=== PATIENT | female | born 1985 | race Caucasian/White ===

== ENCOUNTER 2016-08-04 21:54 | Inpatient (IN) | payer BC ==
[~2016-08-04] VITALS: Ht 170.2 cm; Wt 104.3 kg
[~2016-08-04 21:54] MED LIST: WARF-78 PO
--- NOTE | 2016-08-04 22:07 | PHYS DOC ---
Past Medical History Past Medical History: DVT, Other Additional Past Medical Histor: Blood clotting disorder - Factor V; PE Past Surgical History: Other Additional Past Surgical Histo: left common illiac stent placed for dvt Alcohol Use: None Drug Use: None Adult General Chief Complaint Chief Complaint: LOWER EXT PAIN [facility] HPI Patient is a 30 year old female brought in by EMS for evaluation of bilateral lower extremity tingling and numbness. She is usually seen at [facility] and requested to go to [facility] via EMS however they are closed so she was brought here. Patient reports that she had a lumbar puncture done on July 24 for pseudocyst tumor cerebri to get her pressure decreased from 30-18. She then said she developed tingling on the bottom of her feet for which they did an MRI for on August 02 which she does not know the results of however she was sent home. She called her physician again and they said to come to the emergency department as she would need another MRI to compare to her one several days ago. The tingling goes up both legs bilaterally and the numbness goes to the knees bilaterally. She has no weakness or incontinence but she says that she has a lot of back pain. Review of Systems Review of Systems Constitutional: Denies fever or chills [] Eyes: Denies change in visual acuity, redness, or eye pain [] HENT: Denies nasal congestion or sore throat [] Respiratory: Denies cough or shortness of breath [] Cardiovascular: No additional information not addressed in HPI [] GI: Denies abdominal pain, nausea, vomiting, bloody stools or diarrhea [] : Denies dysuria or hematuria [] Musculoskeletal: + back pain. No joint pain [] Integument: Denies rash or skin lesions [] Neurologic: Denies headache, focal weakness. + sensory changes [] Current Medications Current Medications Allergies Allergies Allergies Coded Allergies Type Severity Reaction Last Updated Verified adhesive Allergy Intermediate Rash 09/16/13 Yes prochlorperazine Allergy Intermediate Rash 09/16/13 Yes Physical Exam Physical Exam Constitutional: Well developed, well nourished, no acute distress, non-toxic appearance. [] HENT: Normocephalic, atraumatic, bilateral external ears normal, oropharynx moist, no oral exudates, nose normal. [] Eyes: PERRLA, EOMI, conjunctiva normal, no discharge. [] Neck: Normal range of motion, no tenderness, supple, no stridor. [] Cardiovascular:Heart rate regular rhythm, no murmur [] Lungs & Thorax: Bilateral breath sounds clear to auscultation [] Abdomen: Bowel sounds normal, soft, no tenderness, no masses, no pulsatile masses. [] Skin: Warm, dry, no erythema, no rash. [] Back: + diffuse lower back ttp. No obvious swelling, erythema. Extremities: No tenderness, no cyanosis, no clubbing, ROM intact, no edema. [] Neurologic: Alert and oriented X 3, normal motor function. BL lower ext with intact sensation but subjectively diminished. Current Patient Data Vital Signs Vital Signs Date Time Temp Pulse Resp B/P Pulse Ox O2 Delivery O2 Flow Rate FiO2 08/04/16 21:59 98.5 82 16 141/96 97 Room Air 98.5 EKG EKG [] Radiology/Procedures Radiology/Procedures [] Course & Med Decision Making Course & Med Decision Making Patient has intact motor on exam. I am not sure why she is having tingling on her bilateral extremities given she likely had a normal MRI 2 days ago. Guillain-Vargas is a possibility but she has no weakness. I am quite hesitant to lumbar puncture given the complications she is having from her most recent lumbar puncture so we'll defer for now given her symptoms seem relatively minor. Epidural abscess versus myelitis versus Guillain-Vargas. Will get MRI ordered for tomorrow morning and then admit her for observation overnight. Dragon Disclaimer Dragon Disclaimer This electronic medical record was generated, in whole or in part, using a voice recognition dictation system. Departure Departure Impression: Primary Impression: Paresthesia of bilateral legs Disposition: ADMITTED INPATIENT Admitting Physician: Ginny Madden Condition: GOOD Referrals: NON,STAFF (PCP) MANNY CALDERON DO August 04, 2016 22:07
--- NOTE | 2016-08-04 23:06 | ACF ---
Admission Forms Criteria NEUROLOGY GRG Clinical Indications for Admission to Inpatient Care (Place ' X' for any and all applicable criteria): Hospital admission is needed for appropriate care of the patient because of 1 or more of the following: [ ]I. Encephalitis [ ]II. Severe SUPERINTENDENT MEASUREMENT infections indicated by 1 or more of the following(1)(2)(3) : [ ]a) Intracranial abscess [ ]b) Spinal abscess or myelitis [ ]c) Tuberculous or other nonbacterial, nonviral SUPERINTENDENT MEASUREMENT infection(8) [ ]III. Vasculitis and 1 or more of the following(14)(15): []a) Altered mental status that is severe or persistent or other acute neurologic change []b) Psychosis []c) Seizure [ ]IV. Status epilepticus or repetitive seizures not controlled with emergent treatment [A] (7)(8) [ ]V. Altered mental status that is severe or persistent [ ]. Transient alteration in consciousness with high-risk etiology; examples include (12)(13): [ ]a) Cardiovascular source [ ]b) Cataplexy [ ]VII. Cerebral aneurysm requiring ANY ONE of the following(14): [ ]a) IV antihypertensives or vasoactive agents [ ]b) Sedation and analgesia for suspected leak [ ]c) Need for external ventricular drainage and cerebral perfusion pressure monitoring [ ]d) Emergent evaluation to determine need for surgical clipping or endovascular coiling by interventional radiology. If surgery is required ( Also use Craniotomy, Supratentorial, for Surgery of Bleeding Intracranial Aneurysm (for bleeding aneurysm) or Craniotomy, Supratentorial (for nonbleeding aneurysm) as appropriate. [X]VIII. New-onset severe neurologic symptom requiring inpatient care indicated by ANY ONE of the following: [ ]a) Aphasia(15) [ ]b) Weakness (grade 3 or less) [ ]c) Paralysis (eg, hemiplegia) [ ]d) Spasticity(16) [ ]e) Dystonia [ ]e) Ataxia(17) [ ]f) Amnesia(18) [ ]g) Involuntary movements(19) [ ]h) Vertigo [ ] Visual loss [X]i) Other severe neurologic finding (eg, papilledema, mass effect on imaging, myoclonus not treatable at alternative level of care (eg, observation care) [ ]IX. Guillain-Mccook syndrome(20) [ ]X. Myasthenia gravis crisis or inpatient monitoring need as indicated by 1 or more of the following(21): [ ]a) Intensive treatment (eg, course of plasmapheresis) with inadequate outpatient situation to monitor patients status [ ]b) Inadequate airway protection [ ]c) Respiratory insufficiency requiring intubation or inpatient. monitoring [ ]d) Progressive dysphagia with failure to thrive [ ]XI. Multiple sclerosis or other acute demyelinating disease requiring inpatient care as indicated by 1 or more of the following (22)(23): [ ]a) Acute severe deterioration requiring inpatient treatment (eg, IV steroids, plasmapheresis, close observation) [ ]b) Acute complication requiring inpatient care (eg, sepsis, severe decubitus, aspiration) [ ]XII.Parkinson disease requiring inpatient care (Also use Optimal Recovery Care Criteria or General Recovery Criteria as appropriate) indicated by 1 or more of the following(25): [ ]a) Infection (eg, aspiration pneumonia) not treatable at alternative level of care [ ]b Dehydration that is severe or persistent [ ]c) Life-threatening agitation or psychotic behavior not treatable on emergency, observation care, or alternative level (eg, residential) basis [ ]d) Severe medication withdrawal effects (eg, freezing, neuroleptic malignant syndrome) not responsive to emergency and observation care treatment ( as appropriate) [ ]e) Other severe manifestation not treatable at alternative level of care [ ]XII. Amyotrophic lateral sclerosis with inpatient care needs as indicated by ANY ONE of the following(26): [ ]a) Acute complications (eg, aspiration pneumonia, sepsis ) requiring inpatient care ( see other optimal Recovery Guideline as appropriate) [ ]b) Dehydration that is severe persistent AND artificial support desired [ ]c) Inadequate airway protection AND artificial support desired [ ]d) Severe ventilatory insufficiency AND artificial support desired [ ]XIII. Myasthenia gravis crisis or inpatient monitoring need as indicated by 1 or more of the following(21): [] a) Inadequate airway protection []b) Respiratory insufficiency requiring intubation or inpatient monitoring []c) Progressive dysphagia with failure to thrive []d) Intensive treatment (e.g., course of plasmapheresis) with inadequate outpatient situation to monitor patients status [ ]XIV. Multiple sclerosis or other acute demyelinating disease requiring inpatient care indicated by 1 or more of the following[C](36)(43)(44)(45)(46): []a) Acute severe deterioration requiring inpatient treatment (eg, IV steroids, plasmapheresis, close observation) []b) Acute complication requiring inpatient care (eg, sepsis, severe decubitus, aspiration) [ ]XV. Intracranial hypertension (e.g., pseudotumor cerebri) requiring inpatient care (e.g., acute visual loss, inadequate oral intake) (47)(48)(49) [ ]XVI. Parkinson disease requiring inpatient care (Also use Optimal Recovery Care Criteria or General Recovery Criteria as appropriate) indicated by 1 or more of the following(25): [] a) Infection (e.g., aspiration pneumonia) not treatable at alternative level of care []b) Volume depletion not responsive to emergency and observation care treatment (as appropriate) []c) Life-threatening agitation or psychotic behavior not treatable on emergency, observation care, or alternative level (e.g., residential) basis []d) Severe medication withdrawal effects (e.g., freezing, neuroleptic malignant syndrome) not responsive to emergency and observation care treatment (as appropriate) []e) Other severe manifestation not treatable at alternative level of care [ ]XVII. Amyotrophic lateral sclerosis with inpatient care needs as indicated by1 or more of the following(42): []a) Acute complications (eg, aspiration pneumonia, sepsis) requiring inpatient care (see other Optimal Recovery Guideline or General Recovery Guideline as appropriate) []b) Dehydration that is severe or persistent AND artificial support desired []c) Inadequate airway protection AND artificial support desired []d) Severe ventilatory insufficiency AND artificial support desired [ ]XVIII. Severe myopathy, neuropathy, or other neuromuscular disease indicated by 1 or more of the following(42)(52)(53)(54): []a ) New-onset severe diffuse weakness (eg, strength 3/5 or less) []b) Severe dysphagia []c) Dyspnea at rest or with minimal exertion (new) []d) Inadequate airway protection []e) Inadequate ventilation indicated by 1 or more of the following : i) Partial pressure of carbon dioxide greater than 44 mm Hg ( 5.9 kPa) (new) ii) Reduced peak expiratory flow rate (new) iii) Vital capacity less than 50% of predicted (less than 15 mL/kg) iv) Peak inspiratory force less negative than -30 cm H2O (- 2942 Pa) [ ]XVII.Complications of congenital or degenerative disease (eg, infection, seizures, dehydration, injury) not responsive to emergency and observation care treatment (as appropriate ) [C](16)(29)(30) [ ]XVIII.Suspected or confirmed nerve or muscle toxic injury, including ANY ONE of the following: [ ]a) Rhabdomyolysis(31) i) Acute renal failure ii) Dehydration that is severe or persistent iii) Altered mental status that is severe or persistent iv) Electrolyte abnormality that remains after emergency or observation level care ( as appropriate) [ ]b) Botulism(32) [ ]c) Other severe toxin-induced sign or symptom [ ]XIX. Neurologic trauma requiring inpatient treatment (medical) indicated by ANY ONE of the following(33)(34): [ ]a) Vital signs or neurologic signs more frequently than every 4 hours [ ]b) Hyperosmolar therapy [ ]c) Respiratory monitoring [ ]d) Intracranial pressure monitoring and treatment [ ]e) Stabilization and immobilization device placement (eg, braces, body jacket) [ ]f) Intubation & mechanical ventilation for airway protection or therapeutic hyperventilation [ ]g) Other treatment or monitoring needed that requires inpatient level of care [ ]XX.Complications of neurologic devices (eg, ventricular shunt, neurostimulator) requiring 1 or more of the following(35)(36): [ ]a) IV antibiotics with monitoring while awaiting culture results [ ]b) Monitoring for hydrocephalus [ ]XXI. Neurology condition symptom, or finding for which emergency and observation care have failed or are not considered appropriate. See General Criteria: Observation Care ISC, General Admission Criteria GRG, or Pediatric General Admission Criteria GRG guideline as appropriate. The original [facility] [employer] content created by [facility] has been revised. The portions of the content which have been revised are identified through the use of italic text or in bold, and [facility] has neither reviewed nor approved the modified material. All other unmodified content is copyright [facility] Please see references footnoted in the original [facility] edition 2016 Admission Criteria Met?: Yes INOCENTE MCMAHAN August 04, 2016 23:06
--- NOTE | 2016-08-04 23:44 | HP ---
ADMIT DATE: 08/05/2016 CHIEF COMPLAINT: Back pain, slight headache and recent lumbar puncture. HISTORY OF PRESENT ILLNESS: The patient is a pleasant 30-year-old female, who has pseudotumor cerebri. She states she had a lumbar puncture, another facility. She has got some neurologic changes in her legs, there is a little bit numb. She has got slight headache. I discussed the case with the ER physician. We are going to admit the patient and consult Neurology and get an MRI of her back. PAST MEDICAL HISTORY: Pseudotumor cerebri. ALLERGIES: None. FAMILY HISTORY: Diabetes. SOCIAL HISTORY: She does not drink, smoke or take drugs. 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 MEDICATIONS: Reviewed, please refer to the MRAD. REVIEW OF SYSTEMS: GENERAL: No history of weight change, weakness or fevers. SKIN: No bruising, hair changes or rashes. EYES: No blurred, double or loss of vision. NOSE AND THROAT: No history of nosebleeds, hoarseness or sore throat. HEART: No history of palpitations, chest pain or shortness of breath on exertion. LUNGS: Denies cough, hemoptysis, wheezing or shortness of breath. GASTROINTESTINAL: Denies changes in appetite, nausea, vomiting, diarrhea or constipation. GENITOURINARY: No history of frequency, urgency, hesitancy or nocturia. NEUROLOGIC: She complains some slight leg numbness. PSYCHIATRIC: No history of panic, anxiety or depression. ENDOCRINE: No history of heat or cold intolerance, polyuria or polydipsia. EXTREMITIES: Denies muscle weakness, joint pain, pain on walking or stiffness. PHYSICAL EXAMINATION: VITAL SIGNS: Temperature afebrile, pulse 62, respirations 18, blood pressure 144/90. GENERAL: She is alert, cooperative. HEART: Normal S1, S2. LUNGS: Clear. ABDOMEN: Soft, positive bowel sounds. EXTREMITIES: No edema. SKIN: No rashes. PSYCHIATRIC: She is stable. VASCULAR: Good capillary refill. ENDOCRINE: No thyromegaly. LYMPHATICS: No cervical nodes. HEMATOPOIETIC: No bruising. NEUROLOGICAL: She is moving all extremities. No obvious focal deficits. ASSESSMENT AND PLAN: Vague complaints of some leg tingling and numbness after lumbar puncture with slight headache, suspect this is all probably related to lumbar puncture. We are going to admit her overnight for observation. We will get an MRI in the morning. Consult Neurology. Continue home medicines. MAGDALENO CRUZ DO DR: BISHOP/imelda JOB#: [id number] / [id number]
[2016-08-04 23:58] LABS: BASO % 0 % (0-3); EOS % 2 % (0-3); HEMATOCRIT 37.9 % (36.0-47.0); LYMPH # 2.2 x10^3/uL (1.0-4.8); LYMPH % 27 % (24-48); MEAN CORPUSCULAR HEMOGLOBIN 27 pg (25-35); MEAN CORPUSCULAR HGB CONC 34 g/dL (31-37); MEAN CORPUSCULAR VOLUME 79 fL (79-100); MONO % 6 % (0-9); NEUT % 65 % (31-73); PLATELET COUNT 340 x10^3/uL (140-400); RED BLOOD COUNT 4.78 x10^6/uL (3.50-5.40); RED CELL DISTRIBUTION WIDTH 16.3 % (11.5-14.5); WHITE BLOOD COUNT 8.1 x10^3/uL (4.0-11.0)
[2016-08-05] VITALS (7 sets, daily range): BP systolic 112–143; BP diastolic 63–98
[2016-08-05 00:08] LABS: INR 1.5 (0.8-1.1)
[2016-08-05] MEDS: fentaNYL PF VIAL 100 MCG/2 ML VIAL IV PRN ×8 (00:12→20:49)
[2016-08-05] MEDS: ONDANSETRON PF 4 MG/2 ML VIAL. IV PRN ×2 (00:12→14:38)
[2016-08-05 00:14] LABS: CALCIUM 8.7 mg/dL (8.5-10.1); CREATININE 0.8 mg/dL (0.6-1.0); GFR 83.7; POTASSIUM 3.6 mmol/L (3.5-5.1)
[2016-08-05 00:21] LABS: ALBUMIN 3.3 g/dL (3.4-5.0); ALBUMIN/GLOBULIN RATIO 0.8 (1.0-1.7); TOTAL BILIRUBIN 0.3 mg/dL (0.2-1.0); TOTAL PROTEIN 7.4 g/dL (6.4-8.2)
[2016-08-05] MEDS ORDERED: ACET500C15 AD (00:36)
[2016-08-05] MEDS ORDERED: ENOX40DI SQ (00:38)
[2016-08-05] MEDS ORDERED: DILT240C2 PO (00:38)
[2016-08-05] MEDS ORDERED: WARFARIN 7.5 MG TABLET. PO ONE (01:30)
[2016-08-05] MEDS: ANTI-COAG MONITOR BY PHARMACY. MC PRN (01:55)
[2016-08-05 02:46] LABS: BILIRUBIN,URINE NEGATIVE (NEG); GLUCOSE,URINE NEGATIVE (NEG); NITRITE,URINE NEGATIVE (NEG); PROTEIN,URINE NEGATIVE (NEG-TRACE)
[2016-08-05 02:52] LABS: BARBITURATES NEG (NEG); BENZODIAZEPINES NEG (NEG); CANNABINOIDS NEG (NEG); COCAINE NEG (NEG); METHADONE NEG (NEG); OPIATES POS (NEG); PHENCYCLIDINE NEG (NEG)
[2016-08-05 02:53] LABS: BACTERIA,URINE 0 /HPF (0-FEW); RBC,URINE OCC /HPF (0-2); SQUAMOUS EPITHELIAL CELL,UR FEW /LPF; WBC,URINE OCC /HPF (0-4)
[2016-08-05 07:59] LABS: BASO % 1 % (0-3); EOS % 2 % (0-3); HEMATOCRIT 36.8 % (36.0-47.0); HEMOGLOBIN 12.3 g/dL (12.0-15.5); LYMPH % 39 % (24-48); MEAN CORPUSCULAR HEMOGLOBIN 27 pg (25-35); MEAN CORPUSCULAR HGB CONC 33 g/dL (31-37); MEAN CORPUSCULAR VOLUME 80 fL (79-100); MONO % 7 % (0-9); NEUT % 52 % (31-73); PLATELET COUNT 327 x10^3/uL (140-400); RED BLOOD COUNT 4.63 x10^6/uL (3.50-5.40); RED CELL DISTRIBUTION WIDTH 16.5 % (11.5-14.5); WHITE BLOOD COUNT 7.8 x10^3/uL (4.0-11.0)
[2016-08-05 08:03] LABS: CALCIUM 8.2 mg/dL (8.5-10.1); CREATININE 0.7 mg/dL (0.6-1.0); GFR 97.6; POTASSIUM 3.3 mmol/L (3.5-5.1)
[2016-08-05 08:04] LABS: INR 1.5 (0.8-1.1); PROTHROMBIN TIME PATIENT 17.5 SEC (11.7-14.0)
[2016-08-05] MEDS ORDERED: GADOBUTROL 10 MMOL/10 ML VIAL IV ONE (10:45)
--- NOTE | 2016-08-05 11:30 | PDOC2 ---
NEUROLOGY CONSULT Date of Admission Date of Admission DATE: 08/05/16 TIME: 11:22 Reason for Consult Reason for Consult: Leg numbness Referring Physician Referring Physician: Dr. Madden PCP: [facility] Source Source: Chart review, Patient History of Present Illness History of Present Illness The patient is a 30-year-old right-handed female with history of benign intracranial hypertension. She was hospitalized at with severe headache and underwent a lumbar puncture showing pressure of 31 cm. She then underwent a blood patch. After that, she noticed tingling in the feet. She had an MRI of the lumbar spine which, she was told, was normal. The numbness extended into the thighs and she had trouble walking. She called the discharging physician who told her to go to the emergency department. She called an ambulance, and as was on bypass, she came here. She describes numbness in both legs and difficulty walking along with low back and mid back pain. She denies any urinary or bowel symptoms. There is no history of multiple sclerosis. She denies any symptoms in the upper r extremities. there is no history of stroke, seizure, head, or spine injury. Past Medical History Pulmonary: Pulmonary embolus (DVT) CENTRAL NERVOUS SYSTEM: Other ( benign intracranial hypertension) Heme/Onc: Other ( factor V deficiency) Past Surgical History Past Surgical History: Cholecystectomy, , Other ( iliac stent for deep venous thrombosis) Family History Family History: CVA Social History Social History No alcohol, tobacco, street drugs Current Medications Current Medications Current Medications Ondansetron HCl (Zofran) 4 mg PRN Q8HRS PRN IV NAUSEA/VOMITING Last administered on 08/05/16 00:12; Start 08/04/16 at 22:30; Stop 08/05/16 at 22:29 Fentanyl Citrate (Fentanyl 2ml Vial) 50 mcg PRN Q2HR PRN IV SEVERE PAIN Last administered on 08/05/16 09:48; Start 08/04/16 at 22:30; Stop 08/05/16 at 22:29 Enoxaparin Sodium (Lovenox 100mg Syringe) 100 mg Q12HR SQ Last administered on 08/05/16 01:29; Start 08/05/16 at 01:30 Warfarin Sodium (Coumadin Per Pharmacy) 1 each PRN DAILY PRN MC SEE COMMENTS Last administered on 08/05/16 01:56; Start 08/05/16 at 01:15 Warfarin Sodium (Coumadin) 7.5 mg 1X ONCE PO Last administered on 08/05/16 01: 30; Start 08/05/16 at 01:30; Stop 08/05/16 at 01:31; Status DC Info (Anti-Coagulation Monitoring By Pharmacy) 1 each PRN DAILY PRN MC SEE COMMENTS Last administered on 08/05/16 01:55; Start 08/05/16 at 01:15 Gadobutrol (Gadavist) 10 mmol 1X ONCE IV Last administered on 08/05/16 11:09; Start 08/05/16 at 10:45; Stop 08/05/16 at 10:46; Status DC Active Scripts Active Reported Cardizem Cd (Diltiazem Hcl) 240 Mg Cap.er.24h 1 Cap PO DAILY Lovenox (Enoxaparin Sodium) 40 Mg/0.4 Ml Disp.syrin 120 Mg SQ BID Diamox Sequels (Acetazolamide) 500 Mg Capsule.er 500 Mg AD BID Coumadin (Warfarin Sodium) 5 Mg Tablet 6 Mg PO DAILY Allergies Allergies: Coded Allergies: adhesive (Verified Allergy, Intermediate, Rash, 09/16/13) prochlorperazine (Verified Allergy, Intermediate, Rash, 09/16/13) ROS Review of System Negative for fevers, chills, weight loss, shortness of breath, chest pain, indigestion, hematochezia, melena, dysuria. Full 14-point review systems is negative. Physical Exam Physical Examination PHYSICAL EXAMINATION: Vital signs: see above. General appearance is normal and in no acute distress. HEENT: Normocephalic and nontraumatic. Eyes, nose, ears, and throat are unremarkable. Neck is supple. No lymphadenopathy. No bruits are heard over the carotid artery. No crepitus. NEUROLOGICAL EXAMINATION: Mental Status Examination: Alert. Oriented to time, place, and person. Answers questions and follows commends. Pupils are equal round and reactive to light and accommodation. Funduscopic exam: No papilledema. Extraocular movements are intact. Visual field exam shows no defect on the direct confrontation. No motor or sensory deficits on the facial exam. Uvula in the midline and the soft palate elevated symmetrically. No deviation of the tongue to any direction. Gross hearing is normal. Shoulder shrug normal. Muscle tone is normal. Muscle strength is 5/5. Deep tendon reflexes are 2+ all around. Plantar reflex is with flexion response bilaterally. [id number] test performance is accurate. Alternative movements are accurate. Romberg test is negative. Gait Exam shows it she stands rather stiffly and take some stiff steps , locking her knees. Sensory exam shows complete anesthesia below the knees. No cerebellar signs are elicited. Vitals VITALS Vital Signs Date Time Temp Pulse Resp B/P Pulse Ox O2 Delivery O2 Flow Rate FiO2 08/05/16 07:00 98.0 71 16 129/77 95 Room Air 98.0 Labs Labs Laboratory Tests Test 08/04/16 23:45 08/05/16 02:30 08/05/16 07:25 White Blood Count 8.1x10^3/uL (4.0-11.0) 7.8x10^3/uL (4.0-11.0) Red Blood Count 4.78x10^6/uL (3.50-5.40) 4.63x10^6/uL (3.50-5.40) Hemoglobin 13.0g/dL (12.0-15.5) 12.3g/dL (12.0-15.5) Hematocrit 37.9% (36.0-47.0) 36.8% (36.0-47.0) Mean Corpuscular Volume 79fL (79-100) 80fL (79-100) Mean Corpuscular Hemoglobin 27pg (25-35) 27pg (25-35) Mean Corpuscular Hemoglobin Concent 34g/dL (31-37) 33g/dL (31-37) Red Cell Distribution Width 16.3% (11.5-14.5) 16.5% (11.5-14.5) Platelet Count 340x10^3/uL (140-400) 327x10^3/uL (140-400) Neutrophils (%) (Auto) 65% (31-73) 52% (31-73) Lymphocytes (%) (Auto) 27% (24-48) 39% (24-48) Monocytes (%) (Auto) 6% (0-9) 7% (0-9) Eosinophils (%) (Auto) 2% (0-3) 2% (0-3) Basophils (%) (Auto) 0% (0-3) 1% (0-3) Neutrophils # (Auto) 5.3x10^3uL (1.8-7.7) 4.0x10^3uL (1.8-7.7) Lymphocytes # (Auto) 2.2x10^3/uL (1.0-4.8) 3.0x10^3/uL (1.0-4.8) Monocytes # (Auto) 0.5x10^3/uL (0.0-1.1) 0.5x10^3/uL (0.0-1.1) Eosinophils # (Auto) 0.1x10^3/uL (0.0-0.7) 0.2x10^3/uL (0.0-0.7) Basophils # (Auto) 0.0x10^3/uL (0.0-0.2) 0.0x10^3/uL (0.0-0.2) Prothrombin Time 17.0SEC (11.7-14.0) 17.5SEC (11.7-14.0) Prothromb Time International Ratio 1.5 (0.8-1.1) 1.5 (0.8-1.1) Activated Partial Thromboplast Time 28SEC (24-38) Sodium Level 137mmol/L (136-145) 137mmol/L (136-145) Potassium Level 3.6mmol/L (3.5-5.1) 3.3mmol/L (3.5-5.1) Chloride Level 108mmol/L (98-107) 106mmol/L (98-107) Carbon Dioxide Level 21mmol/L (21-32) 22mmol/L (21-32) Anion Gap 8 (6-14) 9 (6-14) Blood Urea Nitrogen 11mg/dL (7-20) 11mg/dL (7-20) Creatinine 0.8mg/dL (0.6-1.0) 0.7mg/dL (0.6-1.0) Estimated GFR (Cockcroft-Gault) 83.7 97.6 BUN/Creatinine Ratio 14 (6-20) Glucose Level 92mg/dL (70-99) 98mg/dL (70-99) Calcium Level 8.7mg/dL (8.5-10.1) 8.2mg/dL (8.5-10.1) Total Bilirubin 0.3mg/dL (0.2-1.0) Aspartate Amino Transf (AST/SGOT) 11U/L (15-37) Alanine Aminotransferase (ALT/SGPT) 21U/L (14-59) Alkaline Phosphatase 67U/L (46-116) Total Protein 7.4g/dL (6.4-8.2) Albumin 3.3g/dL (3.4-5.0) Albumin/Globulin Ratio 0.8 (1.0-1.7) Urine Collection Type Unknown Urine Color Yellow Urine Clarity Clear Urine pH 7.0 Urine Specific [place] 1.015 Urine Protein Negativemg/dL (NEG-TRACE) Urine Glucose (UA) Negativemg/dL (NEG) Urine Ketones (Stick) Negativemg/dL (NEG) Urine Blood Large (NEG) Urine Nitrite Negative (NEG) Urine Bilirubin Negative (NEG) Urine Urobilinogen Dipstick 1.0mg/dL (0.2 mg/dL) Urine Leukocyte Esterase Negative (NEG) Urine RBC Occ/HPF (0-2) Urine WBC Occ/HPF (0-4) Urine Squamous Epithelial Cells Few/LPF Urine Amorphous Sediment Present/HPF Urine Bacteria 0/HPF (0-FEW) Urine Mucus Mod/LPF Urine Opiates Screen Pos (NEG) Urine Methadone Screen Neg (NEG) Urine Barbiturates Neg (NEG) Urine Phencyclidine Screen Neg (NEG) Urine Amphetamine/Methamphetamine Neg (NEG) Urine Benzodiazepines Screen Neg (NEG) Urine Cocaine Screen Neg (NEG) Urine Cannabinoids Screen Neg (NEG) Urine Ethyl Alcohol Neg (NEG) Laboratory Tests Test 08/04/16 23:45 08/05/16 02:30 08/05/16 07:25 White Blood Count 8.1x10^3/uL (4.0-11.0) 7.8x10^3/uL (4.0-11.0) Red Blood Count 4.78x10^6/uL (3.50-5.40) 4.63x10^6/uL (3.50-5.40) Hemoglobin 13.0g/dL (12.0-15.5) 12.3g/dL (12.0-15.5) Hematocrit 37.9% (36.0-47.0) 36.8% (36.0-47.0) Mean Corpuscular Volume 79fL (79-100) 80fL (79-100) Mean Corpuscular Hemoglobin 27pg (25-35) 27pg (25-35) Mean Corpuscular Hemoglobin Concent 34g/dL (31-37) 33g/dL (31-37) Red Cell Distribution Width 16.3% (11.5-14.5) 16.5% (11.5-14.5) Platelet Count 340x10^3/uL (140-400) 327x10^3/uL (140-400) Neutrophils (%) (Auto) 65% (31-73) 52% (31-73) Lymphocytes (%) (Auto) 27% (24-48) 39% (24-48) Monocytes (%) (Auto) 6% (0-9) 7% (0-9) Eosinophils (%) (Auto) 2% (0-3) 2% (0-3) Basophils (%) (Auto) 0% (0-3) 1% (0-3) Neutrophils # (Auto) 5.3x10^3uL (1.8-7.7) 4.0x10^3uL (1.8-7.7) Lymphocytes # (Auto) 2.2x10^3/uL (1.0-4.8) 3.0x10^3/uL (1.0-4.8) Monocytes # (Auto) 0.5x10^3/uL (0.0-1.1) 0.5x10^3/uL (0.0-1.1) Eosinophils # (Auto) 0.1x10^3/uL (0.0-0.7) 0.2x10^3/uL (0.0-0.7) Basophils # (Auto) 0.0x10^3/uL (0.0-0.2) 0.0x10^3/uL (0.0-0.2) Prothrombin Time 17.0SEC (11.7-14.0) 17.5SEC (11.7-14.0) Prothromb Time International Ratio 1.5 (0.8-1.1) 1.5 (0.8-1.1) Activated Partial Thromboplast Time 28SEC (24-38) Sodium Level 137mmol/L (136-145) 137mmol/L (136-145) Potassium Level 3.6mmol/L (3.5-5.1) 3.3mmol/L (3.5-5.1) Chloride Level 108mmol/L (98-107) 106mmol/L (98-107) Carbon Dioxide Level 21mmol/L (21-32) 22mmol/L (21-32) Anion Gap 8 (6-14) 9 (6-14) Blood Urea Nitrogen 11mg/dL (7-20) 11mg/dL (7-20) Creatinine 0.8mg/dL (0.6-1.0) 0.7mg/dL (0.6-1.0) Estimated GFR (Cockcroft-Gault) 83.7 97.6 BUN/Creatinine Ratio 14 (6-20) Glucose Level 92mg/dL (70-99) 98mg/dL (70-99) Calcium Level 8.7mg/dL (8.5-10.1) 8.2mg/dL (8.5-10.1) Total Bilirubin 0.3mg/dL (0.2-1.0) Aspartate Amino Transf (AST/SGOT) 11U/L (15-37) Alanine Aminotransferase (ALT/SGPT) 21U/L (14-59) Alkaline Phosphatase 67U/L (46-116) Total Protein 7.4g/dL (6.4-8.2) Albumin 3.3g/dL (3.4-5.0) Albumin/Globulin Ratio 0.8 (1.0-1.7) Urine Collection Type Unknown Urine Color Yellow Urine Clarity Clear Urine pH 7.0 Urine Specific [place] 1.015 Urine Protein Negativemg/dL (NEG-TRACE) Urine Glucose (UA) Negativemg/dL (NEG) Urine Ketones (Stick) Negativemg/dL (NEG) Urine Blood Large (NEG) Urine Nitrite Negative (NEG) Urine Bilirubin Negative (NEG) Urine Urobilinogen Dipstick 1.0mg/dL (0.2 mg/dL) Urine Leukocyte Esterase Negative (NEG) Urine RBC Occ/HPF (0-2) Urine WBC Occ/HPF (0-4) Urine Squamous Epithelial Cells Few/LPF Urine Amorphous Sediment Present/HPF Urine Bacteria 0/HPF (0-FEW) Urine Mucus Mod/LPF Urine Opiates Screen Pos (NEG) Urine Methadone Screen Neg (NEG) Urine Barbiturates Neg (NEG) Urine Phencyclidine Screen Neg (NEG) Urine Amphetamine/Methamphetamine Neg (NEG) Urine Benzodiazepines Screen Neg (NEG) Urine Cocaine Screen Neg (NEG) Urine Cannabinoids Screen Neg (NEG) Urine Ethyl Alcohol Neg (NEG) Assessment/Plan Assessment/Plan Impression: Back pain, leg sensory symptoms, but exam is not consistent with organic neurological disease. She has normal strength and reflexes arguing against a neuropathy. Complete anesthesia is not typical of any organic problem. She is able to stand with her supposedly weak legs, and when she walks, it is not an organic pattern. I thought perhaps Diamox could be at fault, but she has been on this before. Benign intracranial hypertension. Recommendations: MRI of the lumbar spine was ordered and I added on thoracic spine, with and without contrast Physical and occupational therapy Further recommendations depending on the results of these studies. Thank you for letting me help with the patient's care. GIANFRANCO CONTRERAS MD August 05, 2016 11:30
[2016-08-05] MEDS ORDERED: OXYC5CAP3 PO (11:50)
[2016-08-05] MEDS ORDERED: CYCL10TA2 PO (11:50)
[2016-08-05] MEDS ORDERED: OXYC10TA PO (11:50)
--- NOTE | 2016-08-05 11:51 | RAD ---
PROCEDURE MRI thoracic spine with and without contrast. HISTORY Chronic back pain and bilateral leg weakness and tingling. TECHNIQUE Sagittal T1, sagittal T2, sagittal STIR, sagittal post contrast, axial T1, axial T2, and axial post-contrast sequences are provided. 10 milliliters of intravenous Gadavist was administered without complication. COMPARISON None. FINDINGS There is no malalignment. There is no worrisome marrow lesion. There is fatty replacement of the endplates from T6-T7 through T8-T9 anteriorly. Vertebral body height is maintained. There is no marrow edema. There is no cord signal abnormality. There is no pathologic enhancement. There is minimal degenerative disc disease in the mid thoracic spine. This does not result in any high-grade canal or foraminal compromise. There is mild motion degradation. IMPRESSION 1. Minimal degenerative disc disease in the mid thoracic spine. No large herniation. No high-grade canal or foraminal compromise at any level. 2. No cord signal abnormality or pathologic enhancement. Electronically signed by: Martin Rebollar MD (August 05, 2016 11:49:56)
--- NOTE | 2016-08-05 11:56 | RAD ---
PROCEDURE MRI lumbar spine with and without contrast. HISTORY Chronic low back pain and leg numbness and tingling. TECHNIQUE Sagittal T1, sagittal T2, sagittal STIR, axial T1, and axial T2 sequences are provided. 10 milliliters of intravenous Gadavist was administered in total for today's exams. Post-contrast axial and sagittal imaging was performed. COMPARISON None. FINDINGS There is no malalignment. There is no marrow edema. There is no worrisome marrow lesion. Disc height is maintained and discs are well hydrated. The conus medullaris is normal in signal intensity and in position. There is no pathologic enhancement. 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 Degenerative findings by individual level are as follows: L1-L2: There is no canal or foraminal compromise. L2-L3: There is a minimal disc bulge without canal or foraminal compromise. L3-L4: There is no canal or foraminal compromise. L4-L5: Minimal facet and ligamentum flavum hypertrophy are noted without canal or foraminal compromise. L5-S1: There is minimal facet hypertrophy without canal or foraminal compromise. IMPRESSION 1. No significant canal or foraminal compromise at any level. 2. No pathologic enhancement. 3. Fibrolipoma of the filum terminale. Electronically signed by: Martin Rebollar MD (August 05, 2016 11:54:48)
[2016-08-05] MEDS ORDERED: tiZANidine 4 MG TABLET. PO PRN (13:30)
[2016-08-05] MEDS ORDERED: WARFARIN 6 MG TABLET. PO ONE (16:00)
[2016-08-05] MEDS ORDERED: oxyCODONE IR 5 MG TABLET PO PRN (18:00)
[2016-08-05] MEDS: oxyCODONE IR 5 MG TABLET PO PRN ×2 (18:12→23:21)
[2016-08-06] MEDS: oxyCODONE IR 5 MG TABLET PO PRN ×6 (02:34→20:57)
[2016-08-06] MEDS ORDERED: FERR-26 PO (05:28)
[2016-08-06] MEDS ORDERED: LIDO700A27 TP (05:30)
[2016-08-06] MEDS ORDERED: CAFF200T13 PO (05:30)
[2016-08-06 07:00] VITALS: BP 118/69
[2016-08-06 07:41] LABS: INR 1.8 (0.8-1.1); PROTHROMBIN TIME PATIENT 19.6 SEC (11.7-14.0)
--- NOTE | 2016-08-06 09:56 | PDOC ---
PROGRESS NOTES Chief Complaint Chief Complaint late entry, Pt seen on 08/05/16 cc: back pain Acute low backpack with paresthesia hx OF DVT/PE on warfarin Plan MRI lumbar spine Neurology following Pain control INR goal 2-3, Pharmacy to dose warfarin. Vitals Vitals Vital Signs Date Time Temp Pulse Resp B/P Pulse Ox O2 Delivery O2 Flow Rate FiO2 08/06/16 08:59 98 Room Air 08/06/16 07:00 97.9 77 18 118/69 97.9 Physical Exam General: Alert, Oriented X3 Heart: Normal S1, Normal S2 Lungs: Clear Abdomen: Normal bowel sounds Labs LABS Laboratory Tests Test 08/06/16 06:55 Prothrombin Time 19.6SEC (11.7-14.0) Prothromb Time International Ratio 1.8 (0.8-1.1) Assessment and Plan Assessmemt and Plan Problems Medical Problems: (1) Paresthesia of bilateral legs Status: Acute Problems: Comment Review of Relevant I have reviewed the following items юлия (where applicable) has been applied. Labs Laboratory Tests Test 08/04/16 23:45 08/05/16 02:30 08/05/16 07:25 08/06/16 06:55 White Blood Count 8.1x10^3/uL (4.0-11.0) 7.8x10^3/uL (4.0-11.0) Red Blood Count 4.78x10^6/uL (3.50-5.40) 4.63x10^6/uL (3.50-5.40) Hemoglobin 13.0g/dL (12.0-15.5) 12.3g/dL (12.0-15.5) Hematocrit 37.9% (36.0-47.0) 36.8% (36.0-47.0) Mean Corpuscular Volume 79fL (79-100) 80fL (79-100) Mean Corpuscular Hemoglobin 27pg (25-35) 27pg (25-35) Mean Corpuscular Hemoglobin Concent 34g/dL (31-37) 33g/dL (31-37) Red Cell Distribution Width 16.3% (11.5-14.5) 16.5% (11.5-14.5) Platelet Count 340x10^3/uL (140-400) 327x10^3/uL (140-400) Neutrophils (%) (Auto) 65% (31-73) 52% (31-73) Lymphocytes (%) (Auto) 27% (24-48) 39% (24-48) Monocytes (%) (Auto) 6% (0-9) 7% (0-9) Eosinophils (%) (Auto) 2% (0-3) 2% (0-3) Basophils (%) (Auto) 0% (0-3) 1% (0-3) Neutrophils # (Auto) 5.3x10^3uL (1.8-7.7) 4.0x10^3uL (1.8-7.7) Lymphocytes # (Auto) 2.2x10^3/uL (1.0-4.8) 3.0x10^3/uL (1.0-4.8) Monocytes # (Auto) 0.5x10^3/uL (0.0-1.1) 0.5x10^3/uL (0.0-1.1) Eosinophils # (Auto) 0.1x10^3/uL (0.0-0.7) 0.2x10^3/uL (0.0-0.7) Basophils # (Auto) 0.0x10^3/uL (0.0-0.2) 0.0x10^3/uL (0.0-0.2) Prothrombin Time 17.0SEC (11.7-14.0) 17.5SEC (11.7-14.0) 19.6SEC (11.7-14.0) Prothromb Time International Ratio 1.5 (0.8-1.1) 1.5 (0.8-1.1) 1.8 (0.8-1.1) Activated Partial Thromboplast Time 28SEC (24-38) Sodium Level 137mmol/L (136-145) 137mmol/L (136-145) Potassium Level 3.6mmol/L (3.5-5.1) 3.3mmol/L (3.5-5.1) Chloride Level 108mmol/L (98-107) 106mmol/L (98-107) Carbon Dioxide Level 21mmol/L (21-32) 22mmol/L (21-32) Anion Gap 8 (6-14) 9 (6-14) Blood Urea Nitrogen 11mg/dL (7-20) 11mg/dL (7-20) Creatinine 0.8mg/dL (0.6-1.0) 0.7mg/dL (0.6-1.0) Estimated GFR (Cockcroft-Gault) 83.7 97.6 BUN/Creatinine Ratio 14 (6-20) Glucose Level 92mg/dL (70-99) 98mg/dL (70-99) Calcium Level 8.7mg/dL (8.5-10.1) 8.2mg/dL (8.5-10.1) Total Bilirubin 0.3mg/dL (0.2-1.0) Aspartate Amino Transf (AST/SGOT) 11U/L (15-37) Alanine Aminotransferase (ALT/SGPT) 21U/L (14-59) Alkaline Phosphatase 67U/L (46-116) Total Protein 7.4g/dL (6.4-8.2) Albumin 3.3g/dL (3.4-5.0) Albumin/Globulin Ratio 0.8 (1.0-1.7) Urine Collection Type Unknown Urine Color Yellow Urine Clarity Clear Urine pH 7.0 Urine Specific [place] 1.015 Urine Protein Negativemg/dL (NEG-TRACE) Urine Glucose (UA) Negativemg/dL (NEG) Urine Ketones (Stick) Negativemg/dL (NEG) Urine Blood Large (NEG) Urine Nitrite Negative (NEG) Urine Bilirubin Negative (NEG) Urine Urobilinogen Dipstick 1.0mg/dL (0.2 mg/dL) Urine Leukocyte Esterase Negative (NEG) Urine RBC Occ/HPF (0-2) Urine WBC Occ/HPF (0-4) Urine Squamous Epithelial Cells Few/LPF Urine Amorphous Sediment Present/HPF Urine Bacteria 0/HPF (0-FEW) Urine Mucus Mod/LPF Urine Opiates Screen Pos (NEG) Urine Methadone Screen Neg (NEG) Urine Barbiturates Neg (NEG) Urine Phencyclidine Screen Neg (NEG) Urine Amphetamine/Methamphetamine Neg (NEG) Urine Benzodiazepines Screen Neg (NEG) Urine Cocaine Screen Neg (NEG) Urine Cannabinoids Screen Neg (NEG) Urine Ethyl Alcohol Neg (NEG) Laboratory Tests Test 08/06/16 06:55 Prothrombin Time 19.6SEC (11.7-14.0) Prothromb Time International Ratio 1.8 (0.8-1.1) Medications Current Medications Ondansetron HCl (Zofran) 4 mg PRN Q8HRS PRN IV NAUSEA/VOMITING Last administered on 08/05/16 14:38; Start 08/04/16 at 22:30; Stop 08/05/16 at 22:29; Status DC Fentanyl Citrate (Fentanyl 2ml Vial) 50 mcg PRN Q2HR PRN IV SEVERE PAIN Last administered on 08/05/16 20:49; Start 08/04/16 at 22:30; Stop 08/05/16 at 22:29; Status DC Enoxaparin Sodium (Lovenox 100mg Syringe) 100 mg Q12HR SQ Last administered on 08/06/16 08:52; Start 08/05/16 at 01:30 Warfarin Sodium (Coumadin Per Pharmacy) 1 each PRN DAILY PRN MC SEE COMMENTS Last administered on 08/05/16 15:00; Start 08/05/16 at 01:15 Warfarin Sodium (Coumadin) 7.5 mg 1X ONCE PO Last administered on 08/05/16 01: 30; Start 08/05/16 at 01:30; Stop 08/05/16 at 01:31; Status DC Info (Anti-Coagulation Monitoring By Pharmacy) 1 each PRN DAILY PRN MC SEE COMMENTS Last administered on 08/05/16 01:55; Start 08/05/16 at 01:15 Gadobutrol (Gadavist) 10 mmol 1X ONCE IV Last administered on 08/05/16 11:09; Start 08/05/16 at 10:45; Stop 08/05/16 at 10:46; Status DC Tizanidine HCl (Zanaflex) 2 mg PRN BID PRN PO MUSCLE SPASMS Last administered on 08/05/16 13:43; Start 08/05/16 at 13:30 Warfarin Sodium (Coumadin) 6 mg 1X WARF ONCE PO Last administered on 08/05/16 18:12; Start 08/05/16 at 16:00; Stop 08/05/16 at 16:01; Status DC Oxycodone HCl (Roxicodone) 5 mg PRN Q3HRS PRN PO PAIN; Start 08/05/16 at 18:00 Oxycodone HCl (Roxicodone) 10 mg PRN Q3HRS PRN PO PAIN Last administered on 08/06t 08:59; Start 08/05/16 at 18:00 Acetazolamide (Diamox) 500 mg BID PO ; Start 08/06/16 at 10:00 Diltiazem HCl (Cardizem 24hr Cd) 240 mg DAILY PO ; Start 08/06/16 at 10:00 Ferrous Sulfate (Feosol) 325 mg BIDWMEALS PO ; Start 08/06/16 at 10:00 Lidocaine (Lidoderm) 10 patch DAILY TP ; Start 08/07/16 at 09:00; Stop 08/07/16 at 09:00; Status DC Lidocaine (Lidoderm) 1 patch DAILY TP ; Start 08/06/16 at 10:00 Warfarin Sodium (Coumadin Per Pharmacy) 1 each PRN DAILY PRN MC SEE COMMENTS; Start 08/06/16 at 09:15; Status UNV Enoxaparin Sodium (Lovenox Per Pharmacy Treatment Dosing) 1 each PRN DAILY PRN MC SEE COMMENTS; Start 08/06/16 at 09:15; Status UNV Active Scripts Active Reported Lidocaine 700 Mg Adh..patch 700 Mg TP DAILY Caffeine 200 Mg Tablet 200 Mg PO BID Ferrous Sulfate 325 Mg Tablet 1 Tab PO BID Cyclobenzaprine Hcl 10 Mg Tablet 10 Mg PO TID Oxycodone Hcl 10 Mg Tablet 10 Mg PO PRN Q3HRS PRN Oxycodone Hcl 5 Mg Capsule 5 Mg PO PRN Q3HRS PRN Cardizem Cd (Diltiazem Hcl) 240 Mg Cap.er.24h 1 Cap PO DAILY Lovenox (Enoxaparin Sodium) 40 Mg/0.4 Ml Disp.syrin 120 Mg SQ BID Diamox Sequels (Acetazolamide) 500 Mg Capsule.er 500 Mg AD BID Coumadin (Warfarin Sodium) 5 Mg Tablet 6 Mg PO DAILY Vitals/I & O Vital Sign - Last 24 Hours 08/05/16 08/05/16 08/05/16 08/05/16 11:30 15:04 19:00 20:49 Temp 98.3 97.9 98.4 98.3 97.9 98.4 Pulse 78 94 85 Resp 16 16 16 16 B/P 128/98 143/97 129/80 Pulse Ox 99 98 95 98 O2 Delivery Room Air Room Air Room Air Room Air 08/05/16 08/05/16 08/06/16 08/06/16 23:21 23:23 02:34 03:00 Temp 97.7 97.7 Pulse 72 Resp B/P 133/95 Pulse Ox 98 98 98 O2 Delivery Room Air Room Air Room Air Room Air 08/06/16 08/06/16 08/06/16 08/06/16 05:33 06:37 07:00 08:59 Temp 97.9 97.9 Pulse 77 Resp B/P 118/69 Pulse Ox 98 98 98 98 O2 Delivery Room Air Room Air Room Air Room Air Intake and Output 08/05/16 08/05/16 08/06/16 15:00 23:00 07:00 Intake Total 240 ml Balance 240 ml MARTY LEONARD MD August 06, 2016 09:55
[2016-08-06 11:00] VITALS: BP 118/69
--- NOTE | 2016-08-06 11:47 | PDOC ---
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 I offered encouragement Continue physical and occupational therapies I will consider EMG and nerve conduction studies if she does not continue to improve Subjective She feels better, but complaints of headache and complains that no one ordered her home medications. Objective Vital Signs Date Time Temp Pulse Resp B/P Pulse Ox O2 Delivery O2 Flow Rate FiO2 08/06/16 08:59 98 Room Air 08/06/16 07:00 97.9 77 18 118/69 97.9 Intake and Output 08/06/16 07:00 Intake Total 240 ml Balance 240 ml Intake Oral 240 ml # Voids 6 PHYSICAL EXAM Alert. Oriented to time, place and person. PERRL. EOMI. CN: no focal findings. Mild bilateral papilledema Muscle tone: normal. Muscle strength: 5/5 DTR: 2+ including the knees and ankles Plantar reflex: flexor Gait: not examined in bed. Sensory exam: stocking loss abruptly stopping at both knees. No cerebellar signs elicited. Review of Relevant I have reviewed the following items юлия (where applicable) has been applied. Labs Laboratory Tests Test 08/04/16 23:45 08/05/16 02:30 08/05/16 07:25 08/06/16 06:55 White Blood Count 8.1x10^3/uL (4.0-11.0) 7.8x10^3/uL (4.0-11.0) Red Blood Count 4.78x10^6/uL (3.50-5.40) 4.63x10^6/uL (3.50-5.40) Hemoglobin 13.0g/dL (12.0-15.5) 12.3g/dL (12.0-15.5) Hematocrit 37.9% (36.0-47.0) 36.8% (36.0-47.0) Mean Corpuscular Volume 79fL (79-100) 80fL (79-100) Mean Corpuscular Hemoglobin 27pg (25-35) 27pg (25-35) Mean Corpuscular Hemoglobin Concent 34g/dL (31-37) 33g/dL (31-37) Red Cell Distribution Width 16.3% (11.5-14.5) 16.5% (11.5-14.5) Platelet Count 340x10^3/uL (140-400) 327x10^3/uL (140-400) Neutrophils (%) (Auto) 65% (31-73) 52% (31-73) Lymphocytes (%) (Auto) 27% (24-48) 39% (24-48) Monocytes (%) (Auto) 6% (0-9) 7% (0-9) Eosinophils (%) (Auto) 2% (0-3) 2% (0-3) Basophils (%) (Auto) 0% (0-3) 1% (0-3) Neutrophils # (Auto) 5.3x10^3uL (1.8-7.7) 4.0x10^3uL (1.8-7.7) Lymphocytes # (Auto) 2.2x10^3/uL (1.0-4.8) 3.0x10^3/uL (1.0-4.8) Monocytes # (Auto) 0.5x10^3/uL (0.0-1.1) 0.5x10^3/uL (0.0-1.1) Eosinophils # (Auto) 0.1x10^3/uL (0.0-0.7) 0.2x10^3/uL (0.0-0.7) Basophils # (Auto) 0.0x10^3/uL (0.0-0.2) 0.0x10^3/uL (0.0-0.2) Prothrombin Time 17.0SEC (11.7-14.0) 17.5SEC (11.7-14.0) 19.6SEC (11.7-14.0) Prothromb Time International Ratio 1.5 (0.8-1.1) 1.5 (0.8-1.1) 1.8 (0.8-1.1) Activated Partial Thromboplast Time 28SEC (24-38) Sodium Level 137mmol/L (136-145) 137mmol/L (136-145) Potassium Level 3.6mmol/L (3.5-5.1) 3.3mmol/L (3.5-5.1) Chloride Level 108mmol/L (98-107) 106mmol/L (98-107) Carbon Dioxide Level 21mmol/L (21-32) 22mmol/L (21-32) Anion Gap 8 (6-14) 9 (6-14) Blood Urea Nitrogen 11mg/dL (7-20) 11mg/dL (7-20) Creatinine 0.8mg/dL (0.6-1.0) 0.7mg/dL (0.6-1.0) Estimated GFR (Cockcroft-Gault) 83.7 97.6 BUN/Creatinine Ratio 14 (6-20) Glucose Level 92mg/dL (70-99) 98mg/dL (70-99) Calcium Level 8.7mg/dL (8.5-10.1) 8.2mg/dL (8.5-10.1) Total Bilirubin 0.3mg/dL (0.2-1.0) Aspartate Amino Transf (AST/SGOT) 11U/L (15-37) Alanine Aminotransferase (ALT/SGPT) 21U/L (14-59) Alkaline Phosphatase 67U/L (46-116) Total Protein 7.4g/dL (6.4-8.2) Albumin 3.3g/dL (3.4-5.0) Albumin/Globulin Ratio 0.8 (1.0-1.7) Urine Collection Type Unknown Urine Color Yellow Urine Clarity Clear Urine pH 7.0 Urine Specific [place] 1.015 Urine Protein Negativemg/dL (NEG-TRACE) Urine Glucose (UA) Negativemg/dL (NEG) Urine Ketones (Stick) Negativemg/dL (NEG) Urine Blood Large (NEG) Urine Nitrite Negative (NEG) Urine Bilirubin Negative (NEG) Urine Urobilinogen Dipstick 1.0mg/dL (0.2 mg/dL) Urine Leukocyte Esterase Negative (NEG) Urine RBC Occ/HPF (0-2) Urine WBC Occ/HPF (0-4) Urine Squamous Epithelial Cells Few/LPF Urine Amorphous Sediment Present/HPF Urine Bacteria 0/HPF (0-FEW) Urine Mucus Mod/LPF Urine Opiates Screen Pos (NEG) Urine Methadone Screen Neg (NEG) Urine Barbiturates Neg (NEG) Urine Phencyclidine Screen Neg (NEG) Urine Amphetamine/Methamphetamine Neg (NEG) Urine Benzodiazepines Screen Neg (NEG) Urine Cocaine Screen Neg (NEG) Urine Cannabinoids Screen Neg (NEG) Urine Ethyl Alcohol Neg (NEG) Laboratory Tests Test 08/06/16 06:55 Prothrombin Time 19.6SEC (11.7-14.0) Prothromb Time International Ratio 1.8 (0.8-1.1) Medications Current Medications Ondansetron HCl (Zofran) 4 mg PRN Q8HRS PRN IV NAUSEA/VOMITING Last administered on 08/05/16 14:38; Start 08/04/16 at 22:30; Stop 08/05/16 at 22:29; Status DC Fentanyl Citrate (Fentanyl 2ml Vial) 50 mcg PRN Q2HR PRN IV SEVERE PAIN Last administered on 08/05/16 20:49; Start 08/04/16 at 22:30; Stop 08/05/16 at 22:29; Status DC Enoxaparin Sodium (Lovenox 100mg Syringe) 100 mg Q12HR SQ Last administered on 08/06/16 08:52; Start 08/05/16 at 01:30 Warfarin Sodium (Coumadin Per Pharmacy) 1 each PRN DAILY PRN MC SEE COMMENTS Last administered on 08/05/16 15:00; Start 08/05/16 at 01:15 Warfarin Sodium (Coumadin) 7.5 mg 1X ONCE PO Last administered on 08/05/16 01: 30; Start 08/05/16 at 01:30; Stop 08/05/16 at 01:31; Status DC Info (Anti-Coagulation Monitoring By Pharmacy) 1 each PRN DAILY PRN MC SEE COMMENTS Last administered on 08/05/16 01:55; Start 08/05/16 at 01:15 Gadobutrol (Gadavist) 10 mmol 1X ONCE IV Last administered on 08/05/16 11:09; Start 08/05/16 at 10:45; Stop 08/05/16 at 10:46; Status DC Tizanidine HCl (Zanaflex) 2 mg PRN BID PRN PO MUSCLE SPASMS Last administered on 08/05/16 13:43; Start 08/05/16 at 13:30 Warfarin Sodium (Coumadin) 6 mg 1X WARF ONCE PO Last administered on 08/05/16 18:12; Start 08/05/16 at 16:00; Stop 08/05/16 at 16:01; Status DC Oxycodone HCl (Roxicodone) 5 mg PRN Q3HRS PRN PO PAIN; Start 08/05/16 at 18:00 Oxycodone HCl (Roxicodone) 10 mg PRN Q3HRS PRN PO PAIN Last administered on 08/06 08:59; Start 08/05/16 at 18:00 Acetazolamide (Diamox) 500 mg BID PO ; Start 08/06/16 at 10:00 Diltiazem HCl (Cardizem 24hr Cd) 240 mg DAILY PO ; Start 08/06/16 at 10:00 Ferrous Sulfate (Feosol) 325 mg BIDWMEALS PO ; Start 08/06/16 at 10:00 Lidocaine (Lidoderm) 10 patch DAILY TP ; Start 08/07/16 at 09:00; Stop 08/07/16 at 09:00; Status DC Lidocaine (Lidoderm) 1 patch DAILY TP ; Start 08/06/16 at 10:00 Warfarin Sodium (Coumadin Per Pharmacy) 1 each PRN DAILY PRN MC SEE COMMENTS; Start 08/06/16 at 09:15; Status UNV Enoxaparin Sodium (Lovenox Per Pharmacy Treatment Dosing) 1 each PRN DAILY PRN MC SEE COMMENTS; Start 08/06/16 at 09:15; Status UNV Active Scripts Active Reported Lidocaine 700 Mg Adh..patch 700 Mg TP DAILY Caffeine 200 Mg Tablet 200 Mg PO BID Ferrous Sulfate 325 Mg Tablet 1 Tab PO BID Cyclobenzaprine Hcl 10 Mg Tablet 10 Mg PO TID Oxycodone Hcl 10 Mg Tablet 10 Mg PO PRN Q3HRS PRN Oxycodone Hcl 5 Mg Capsule 5 Mg PO PRN Q3HRS PRN Cardizem Cd (Diltiazem Hcl) 240 Mg Cap.er.24h 1 Cap PO DAILY Lovenox (Enoxaparin Sodium) 40 Mg/0.4 Ml Disp.syrin 120 Mg SQ BID Diamox Sequels (Acetazolamide) 500 Mg Capsule.er 500 Mg AD BID Coumadin (Warfarin Sodium) 5 Mg Tablet 6 Mg PO DAILY Vitals/I & O Vital Sign - Last 24 Hours 5/208/05/16 08/05/16 08/05/16 15:04 19:00 20:49 23:21 Temp 97.9 98.4 97.9 98.4 Pulse 94 85 Resp 16 16 16 16 B/P 143/97 129/80 Pulse Ox 98 95 98 98 O2 Delivery Room Air Room Air Room Air Room Air 08/05/16 08/06/16 08/06/16 08/06/16 23:23 02:34 03:00 05:33 Temp 97.7 97.7 Pulse 72 Resp 18 17 15 B/P 133/95 Pulse Ox 98 98 98 O2 Delivery Room Air Room Air Room Air Room Air 08/06/16 08/06/16 08/06/16 06:37 07:00 08:59 Temp 97.9 97.9 Pulse 77 Resp 15 18 B/P 118/69 Pulse Ox 98 98 98 O2 Delivery Room Air Room Air Room Air Intake and Output 08/05/16 08/05/16 08/06/16 15:00 23:00 07:00 Intake Total 240 ml Balance 240 ml Images MRI thoracic: FINDINGS There is no malalignment. There is no worrisome marrow lesion. There is fatty replacement of the endplates from T6-T7 through T8-T9 anteriorly. Vertebral body height is maintained. There is no marrow edema. There is no cord signal abnormality. There is no pathologic enhancement. There is minimal degenerative disc disease in the mid thoracic spine. This does not result in any high-grade canal or foraminal compromise. There is mild motion degradation. IMPRESSION 1. Minimal degenerative disc disease in the mid thoracic spine. No large herniation. No high-grade canal or foraminal compromise at any level. 2. No cord signal abnormality or pathologic enhancement. MRI lumbar: FINDINGS There is no malalignment. There is no marrow edema. There is no worrisome marrow lesion. Disc height is maintained and discs are well hydrated. The conus medullaris is normal in signal intensity and in position. There is no pathologic enhancement. 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 Degenerative findings by individual level are as follows: L1-L2: There is no canal or foraminal compromise. L2-L3: There is a minimal disc bulge without canal or foraminal compromise. L3-L4: There is no canal or foraminal compromise. L4-L5: Minimal facet and ligamentum flavum hypertrophy are noted without canal or foraminal compromise. L5-S1: There is minimal facet hypertrophy without canal or foraminal compromise. IMPRESSION 1. No significant canal or foraminal compromise at any level. 2. No pathologic enhancement. 3. Fibrolipoma of the filum terminale. GIANFRANCO CONTRERAS MD August 06, 2016 11:47
[2016-08-06] MEDS: FERROUS SULFATE 325 MG TABLET. PO SCH ×2 (12:15→16:55)
[2016-08-06] MEDS: LIDOCAINE (700MG/PATCH) PATCH. TP SCH (12:16)
[2016-08-06] MEDS ORDERED: methylPREDNISolone 4 MG TABLET. PO SCH (12:30)
[2016-08-06 12:40] VITALS: BP 118/69
--- NOTE | 2016-08-06 13:43 | PDOC ---
PROGRESS NOTES Chief Complaint Chief Complaint Acute low backpack with paresthesia hx OF DVT/PE on warfarin -subtherapeutic Benign INtracranial HTN FActor 5 def History of Present Illness History of Present Illness MRi brain done today is neg Co managed with neuro Agree with neuro assessment Pt still miserable in back pain Imaging shows no spinal cord involvement or other redflags On PO and pain patch INR 1,.8 - hx factor 5 def PLAN: COnsult physiatry COnt lovenox BID until INR at goal Vitals Vitals Vital Signs Date Time Temp Pulse Resp B/P Pulse Ox O2 Delivery O2 Flow Rate FiO2 08/06/16 13:20 98 Room Air 08/06/16 12:16 77 118/69 08/06/16 11:00 97.9 97.9 08/06/16 07:00 18 Physical Exam General: Alert, Oriented X3 Heart: Normal S1, Normal S2 Lungs: Clear Abdomen: Normal bowel sounds Labs LABS Laboratory Tests Test 08/06/16 06:55 Prothrombin Time 19.6SEC (11.7-14.0) Prothromb Time International Ratio 1.8 (0.8-1.1) Review of Systems Review of Systems back pain, headache, no v/d/emesis Assessment and Plan Assessmemt and Plan Problems Medical Problems: (1) Paresthesia of bilateral legs Status: Acute Problems: Comment Review of Relevant I have reviewed the following items юлия (where applicable) has been applied. Labs Laboratory Tests Test 08/04/16 23:45 08/05/16 02:30 08/05/16 07:25 08/06/16 06:55 White Blood Count 8.1x10^3/uL (4.0-11.0) 7.8x10^3/uL (4.0-11.0) Red Blood Count 4.78x10^6/uL (3.50-5.40) 4.63x10^6/uL (3.50-5.40) Hemoglobin 13.0g/dL (12.0-15.5) 12.3g/dL (12.0-15.5) Hematocrit 37.9% (36.0-47.0) 36.8% (36.0-47.0) Mean Corpuscular Volume 79fL (79-100) 80fL (79-100) Mean Corpuscular Hemoglobin 27pg (25-35) 27pg (25-35) Mean Corpuscular Hemoglobin Concent 34g/dL (31-37) 33g/dL (31-37) Red Cell Distribution Width 16.3% (11.5-14.5) 16.5% (11.5-14.5) Platelet Count 340x10^3/uL (140-400) 327x10^3/uL (140-400) Neutrophils (%) (Auto) 65% (31-73) 52% (31-73) Lymphocytes (%) (Auto) 27% (24-48) 39% (24-48) Monocytes (%) (Auto) 6% (0-9) 7% (0-9) Eosinophils (%) (Auto) 2% (0-3) 2% (0-3) Basophils (%) (Auto) 0% (0-3) 1% (0-3) Neutrophils # (Auto) 5.3x10^3uL (1.8-7.7) 4.0x10^3uL (1.8-7.7) Lymphocytes # (Auto) 2.2x10^3/uL (1.0-4.8) 3.0x10^3/uL (1.0-4.8) Monocytes # (Auto) 0.5x10^3/uL (0.0-1.1) 0.5x10^3/uL (0.0-1.1) Eosinophils # (Auto) 0.1x10^3/uL (0.0-0.7) 0.2x10^3/uL (0.0-0.7) Basophils # (Auto) 0.0x10^3/uL (0.0-0.2) 0.0x10^3/uL (0.0-0.2) Prothrombin Time 17.0SEC (11.7-14.0) 17.5SEC (11.7-14.0) 19.6SEC (11.7-14.0) Prothromb Time International Ratio 1.5 (0.8-1.1) 1.5 (0.8-1.1) 1.8 (0.8-1.1) Activated Partial Thromboplast Time 28SEC (24-38) Sodium Level 137mmol/L (136-145) 137mmol/L (136-145) Potassium Level 3.6mmol/L (3.5-5.1) 3.3mmol/L (3.5-5.1) Chloride Level 108mmol/L (98-107) 106mmol/L (98-107) Carbon Dioxide Level 21mmol/L (21-32) 22mmol/L (21-32) Anion Gap 8 (6-14) 9 (6-14) Blood Urea Nitrogen 11mg/dL (7-20) 11mg/dL (7-20) Creatinine 0.8mg/dL (0.6-1.0) 0.7mg/dL (0.6-1.0) Estimated GFR (Cockcroft-Gault) 83.7 97.6 BUN/Creatinine Ratio 14 (6-20) Glucose Level 92mg/dL (70-99) 98mg/dL (70-99) Calcium Level 8.7mg/dL (8.5-10.1) 8.2mg/dL (8.5-10.1) Total Bilirubin 0.3mg/dL (0.2-1.0) Aspartate Amino Transf (AST/SGOT) 11U/L (15-37) Alanine Aminotransferase (ALT/SGPT) 21U/L (14-59) Alkaline Phosphatase 67U/L (46-116) Total Protein 7.4g/dL (6.4-8.2) Albumin 3.3g/dL (3.4-5.0) Albumin/Globulin Ratio 0.8 (1.0-1.7) Urine Collection Type Unknown Urine Color Yellow Urine Clarity Clear Urine pH 7.0 Urine Specific [place] 1.015 Urine Protein Negativemg/dL (NEG-TRACE) Urine Glucose (UA) Negativemg/dL (NEG) Urine Ketones (Stick) Negativemg/dL (NEG) Urine Blood Large (NEG) Urine Nitrite Negative (NEG) Urine Bilirubin Negative (NEG) Urine Urobilinogen Dipstick 1.0mg/dL (0.2 mg/dL) Urine Leukocyte Esterase Negative (NEG) Urine RBC Occ/HPF (0-2) Urine WBC Occ/HPF (0-4) Urine Squamous Epithelial Cells Few/LPF Urine Amorphous Sediment Present/HPF Urine Bacteria 0/HPF (0-FEW) Urine Mucus Mod/LPF Urine Opiates Screen Pos (NEG) Urine Methadone Screen Neg (NEG) Urine Barbiturates Neg (NEG) Urine Phencyclidine Screen Neg (NEG) Urine Amphetamine/Methamphetamine Neg (NEG) Urine Benzodiazepines Screen Neg (NEG) Urine Cocaine Screen Neg (NEG) Urine Cannabinoids Screen Neg (NEG) Urine Ethyl Alcohol Neg (NEG) Laboratory Tests Test 08/06/16 06:55 Prothrombin Time 19.6SEC (11.7-14.0) Prothromb Time International Ratio 1.8 (0.8-1.1) Medications Current Medications Ondansetron HCl (Zofran) 4 mg PRN Q8HRS PRN IV NAUSEA/VOMITING Last administered on 08/05/16 14:38; Start 08/04/16 at 22:30; Stop 08/05/16 at 22:29; Status DC Fentanyl Citrate (Fentanyl 2ml Vial) 50 mcg PRN Q2HR PRN IV SEVERE PAIN Last administered on 08/05/16 20:49; Start 08/04/16 at 22:30; Stop 08/05/16 at 22:29; Status DC Enoxaparin Sodium (Lovenox 100mg Syringe) 100 mg Q12HR SQ Last administered on 08/06/16 08:52; Start 08/05/16 at 01:30 Warfarin Sodium (Coumadin Per Pharmacy) 1 each PRN DAILY PRN MC SEE COMMENTS Last administered on 08/05/16 15:00; Start 08/05/16 at 01:15 Warfarin Sodium (Coumadin) 7.5 mg 1X ONCE PO Last administered on 08/05/16 01: 30; Start 08/05/16 at 01:30; Stop 08/05/16 at 01:31; Status DC Info (Anti-Coagulation Monitoring By Pharmacy) 1 each PRN DAILY PRN MC SEE COMMENTS Last administered on 08/05/16 01:55; Start 08/05/16 at 01:15 Gadobutrol (Gadavist) 10 mmol 1X ONCE IV Last administered on 08/05/16 11:09; Start 08/05/16 at 10:45; Stop 08/05/16 at 10:46; Status DC Tizanidine HCl (Zanaflex) 2 mg PRN BID PRN PO MUSCLE SPASMS Last administered on 08/05/16 13:43; Start 08/05/16 at 13:30 Warfarin Sodium (Coumadin) 6 mg 1X WARF ONCE PO Last administered on 08/05/16 18:12; Start 08/05/16 at 16:00; Stop 08/05/16 at 16:01; Status DC Oxycodone HCl (Roxicodone) 5 mg PRN Q3HRS PRN PO PAIN; Start 08/05/16 at 18:00 Oxycodone HCl (Roxicodone) 10 mg PRN Q3HRS PRN PO PAIN Last administered on 08/06 12:16; Start 08/05/16 at 18:00 Acetazolamide (Diamox) 500 mg BID PO Last administered on 08/06/16 12:16; Start 08/06/16 at 10:00 Diltiazem HCl (Cardizem 24hr Cd) 240 mg DAILY PO Last administered on 08/06/16 12:16; Start 08/06/16 at 10:00 Ferrous Sulfate (Feosol) 325 mg BIDWMEALS PO Last administered on 08/06/16 12: 15; Start 08/06/16 at 10:00 Lidocaine (Lidoderm) 10 patch DAILY TP ; Start 08/07/16 at 09:00; Stop 08/07/16 at 09:00; Status DC Lidocaine (Lidoderm) 1 patch DAILY TP Last administered on 08/06/16 12:16; Start 08/06/16 at 10:00 Warfarin Sodium (Coumadin Per Pharmacy) 1 each PRN DAILY PRN MC SEE COMMENTS; Start 08/06/16 at 09:15; Status UNV Enoxaparin Sodium (Lovenox Per Pharmacy Treatment Dosing) 1 each PRN DAILY PRN MC SEE COMMENTS; Start 08/06/16 at 09:15; Status UNV Active Scripts Active Reported Lidocaine 700 Mg Adh..patch 700 Mg TP DAILY Caffeine 200 Mg Tablet 200 Mg PO BID Ferrous Sulfate 325 Mg Tablet 1 Tab PO BID Cyclobenzaprine Hcl 10 Mg Tablet 10 Mg PO TID Oxycodone Hcl 10 Mg Tablet 10 Mg PO PRN Q3HRS PRN Oxycodone Hcl 5 Mg Capsule 5 Mg PO PRN Q3HRS PRN Cardizem Cd (Diltiazem Hcl) 240 Mg Cap.er.24h 1 Cap PO DAILY Lovenox (Enoxaparin Sodium) 40 Mg/0.4 Ml Disp.syrin 120 Mg SQ BID Diamox Sequels (Acetazolamide) 500 Mg Capsule.er 500 Mg AD BID Coumadin (Warfarin Sodium) 5 Mg Tablet 6 Mg PO DAILY Vitals/I & O Vital Sign - Last 24 Hours 08/05/16 08/05/16 08/05/16 08/05/16 15:04 19:00 20:49 23:21 Temp 97.9 98.4 97.9 98.4 Pulse 94 85 Resp 16 16 16 16 B/P 143/97 129/80 Pulse Ox 98 95 98 98 O2 Delivery Room Air Room Air Room Air Room Air 08/05/16 08/06/16 08/06/16 08/06/16 23:23 02:34 03:00 05:33 Temp 97.7 97.7 Pulse 72 Resp 18 17 15 B/P 133/95 Pulse Ox 98 98 98 O2 Delivery Room Air Room Air Room Air Room Air 08/06/16 08/06/16 08/06/16 08/06/16 06:37 07:00 08:59 11:00 Temp 97.9 97.9 97.9 97.9 Pulse 77 77 Resp 15 18 B/P 118/69 118/69 Pulse Ox 98 98 98 O2 Delivery Room Air Room Air Room Air 08/06/16 08/06/16 08/06/16 12:16 12:16 13:20 Pulse 77 B/P 118/69 Pulse Ox 98 98 O2 Delivery Room Air Room Air Intake and Output 08/05/16 08/05/16 08/06/16 15:00 23:00 07:00 Intake Total 240 ml Balance 240 ml CHRISTIANO MCADAMS MD August 06, 2016 13:43
[2016-08-06 15:00] VITALS: BP 117/77
[2016-08-06] MEDS: ANTI-COAG MONITOR BY PHARMACY. MC PRN ×2 (15:46→15:47)
[2016-08-06] MEDS ORDERED: WARFARIN 6 MG TABLET. PO ONE (16:00)
[2016-08-06] MEDS ORDERED: methylPREDNISolone 4 MG TABLET. PO ONE (18:00)
[2016-08-06] MEDS ORDERED: fentaNYL 25MCG/HR PATCH 1 PATCH PATCH.TD72 TD SCH (18:00)
[2016-08-06] MEDS: PANTOPRAZOLE 40 MG TABLET.DR. PO SCH (18:03)
[2016-08-06] MEDS: tiZANidine 4 MG TABLET. PO SCH ×2 (18:03→23:41)
[2016-08-06 19:00] VITALS: BP 95/48
[2016-08-06] MEDS ORDERED: ONDANSETRON ODT 4 MG TAB.RAPDIS. PO PRN (19:00)
[2016-08-06 22:37] VITALS: BP 106/67
[2016-08-07] VITALS (7 sets, daily range): BP systolic 103–126; BP diastolic 47–77
[2016-08-07] MEDS: oxyCODONE IR 5 MG TABLET PO PRN ×5 (02:40→21:02)
[2016-08-07] MEDS: tiZANidine 4 MG TABLET. PO SCH ×3 (06:32→17:21)
[2016-08-07] MEDS: PANTOPRAZOLE 40 MG TABLET.DR. PO SCH (07:32)
[2016-08-07 08:08] LABS: PROTHROMBIN TIME PATIENT 21.6 SEC (11.7-14.0)
[2016-08-07] MEDS: FERROUS SULFATE 325 MG TABLET. PO SCH ×2 (08:49→17:21)
[2016-08-07] MEDS: LIDOCAINE (700MG/PATCH) PATCH. TP SCH (08:49)
[2016-08-07] MEDS: methylPREDNISolone 4 MG TABLET. PO SCH ×3 (08:49→17:21)
[2016-08-07] MEDS ORDERED: LIDOCAINE (700MG/PATCH) PATCH. TP SCH (09:00)
--- NOTE | 2016-08-07 09:15 | CONS ---
DATE OF CONSULTATION: 08/06/2016 ATTENDING PHYSICIAN: Dr. Madden. The patient was seen at the request of Dr. Biggs for rehab evaluation. HISTORY OF PRESENT ILLNESS: This is a 30-year-old female with a history of pseudotumor cerebri, had several lumbar punctures done at [facility] in the past, last one done on 07/23/2016 and she had dural patch to help with leakage. Since then, she has had lower back pain with associated numbness and tingling in her feet and legs and to some extent in her hands with associated slight headache. She was admitted through the Emergency Room. The patient had a family history of diabetes mellitus. SHE IS KNOWN ALLERGIC TO ADHESIVES AND PROCHLORPERAZINE. She works at a liquor store. She does not drink, smoke or take any drugs. She lives with her fiance in an apartment home, has stairs to manage. The patient has not been to work since 07/23/2016 and she had a lumbar puncture done. The patient had an MRI scan of the thoracic and lumbar spine done, which failed to reveal any abnormality except mild degenerative changes in the mid thoracic spine and minimal facet and ligamentum flavum hypertrophy at L4-L5 and L5-S1 without any central canal or neural foraminal compromise, also fibrolipoma of filum terminale was noted. The patient is being followed by physical therapy and occupational therapy. PAST MEDICAL HISTORY: Also includes factor 5 deficiency, pulmonary embolism. The patient is status post left common iliac stent placed for deep venous thrombosis in the past. The patient had an MRI scan done on 08/02/2016 at [facility], results were not known. The patient denies any trouble with her bladder control, but admits some increased back pain while trying to have a bowel movement. PHYSICAL EXAMINATION: GENERAL: The patient on physical examination today revealed a young female. The patient is obese. She is in no acute distress. She is alert, follows commands appropriately. MUSCULOSKELETAL: She had tenderness to palpation over the thoracic and lumbar paraspinal muscles extending over to the sacroiliac joint area and straight leg raising test is negative bilaterally, minimal degree of lumbar paraspinal muscle spasm. She had 5/5 grade muscle strength in her upper and lower extremities. Deep tendon reflexes are 1-2+ and symmetric in the upper extremities and at the knees, 1+ at the left ankle, absent at the right ankle. She had decreased touch and pinprick sensation just below both knees. She had pain free range of motion of all 4 extremity joints. She is independent with bed mobility. I have not tested her transfers or ambulation skills, but she walked for about 40 feet with physical therapy this afternoon. ASSESSMENT: Young female with thoracolumbar sprain with radiological evidence of mild degenerative changes in the mid thoracic and lumbar vertebrae without any clinical evidence of thoracic or lumbar radiculopathy, but paraesthesia in both feet and legs and to some extent in her hands, but it got better since she had lumbar puncture done for evaluation of pseudocyst tumor cerebri, status post dural patch for cerebrospinal fluid leak done on 07/23/2016. RECOMMENDATIONS: To try her on Medrol Dosepak. Agree with physical therapy, to ask physical therapy to try physical modalities, to put her on fentanyl for pain control and she has been apparently taking fentanyl injection and oxycodone 10 mg IR every 2-3 hours, to try her with a lumbar corset, to consider trigger point injection to her back if her pain persists. Dr. Biggs, I appreciate asking me to participate in the care of this interesting patient. I will be glad to follow her with you as needed for her rehabilitation. KARI KUHN MD DR: LUCERO/imelda JOB#: [id number] / [id number]
--- NOTE | 2016-08-07 09:39 | PDOC ---
PROGRESS NOTES Subjective Subjective She feels tired but admits less back pain but tingling and numbness pain in her feet persists and she admits increased discomfort in her feet while sitting for a while.She has tried gabapentin and lyrica in the past and felt dizzy taking gabapentin and swelling taking lyrica. Objective Objective Vital Signs Date Time Temp Pulse Resp B/P (MAP) Pulse Ox O2 Delivery O2 Flow Rate FiO2 08/07/16 08:53 Room Air 08/07/16 08:49 71 123/77 08/07/16 07:00 97.8 16 98 97.8 Intake and Output 08/07/16 07:00 Intake Total 550 ml Balance 550 ml Intake Oral 550 ml # Voids 5 Physical Exam Physical Exam She is sitting at edge of bed and seems to be in no acute distress.She continues with decreased sensory perception from knees down with absent right ankle jerk and decreased left ankle jerk and tenderness to palpation over thoracic and lumbar paraspinal muscles extending over to sacroiliac joints. Assessment Assessment Problems Medical Problems: (1) Paresthesia of bilateral legs Status: Acute Plan Plan of Care To await lumbar corset and try tegretol to help with lower extremity dysesthesia.Hopefully home when medically stable with out patient follow up. Comment Review of Relevant I have reviewed the following items юлия (where applicable) has been applied. Labs Laboratory Tests Test 08/06/16 06:55 08/07/16 06:40 Prothrombin Time 19.6 SEC (11.7-14.0) 21.6 SEC (11.7-14.0) Prothromb Time International Ratio 1.8 (0.8-1.1) 2.0 (0.8-1.1) Laboratory Tests Test 08/07/16 06:40 Prothrombin Time 21.6 SEC (11.7-14.0) Prothromb Time International Ratio 2.0 (0.8-1.1) Medications Current Medications Ondansetron HCl (Zofran) 4 mg PRN Q8HRS PRN IV NAUSEA/VOMITING Last administered on 08/05/16 14:38; Start 08/04/16 at 22:30; Stop 08/05/16 at 22:29; Status DC Fentanyl Citrate (Fentanyl 2ml Vial) 50 mcg PRN Q2HR PRN IV SEVERE PAIN Last administered on 08/05/16 20:49; Start 08/04/16 at 22:30; Stop 08/05/16 at 22:29; Status DC Enoxaparin Sodium (Lovenox 100mg Syringe) 100 mg Q12HR SQ Last administered on 08/07/16 08:50; Start 08/05/16 at 01:30 Warfarin Sodium (Coumadin Per Pharmacy) 1 each PRN DAILY PRN MC SEE COMMENTS Last administered on 08/05/16 15:00; Start 08/05/16 at 01:15 Warfarin Sodium (Coumadin) 7.5 mg 1X ONCE PO Last administered on 08/05/16 01: 30; Start 08/05/16 at 01:30; Stop 08/05/16 at 01:31; Status DC Info (Anti-Coagulation Monitoring By Pharmacy) 1 each PRN DAILY PRN MC SEE COMMENTS Last administered on 08/06/16 15:47; Start 08/05/16 at 01:15 Gadobutrol (Gadavist) 10 mmol 1X ONCE IV Last administered on 08/05/16 11:09; Start 08/05/16 at 10:45; Stop 08/05/16 at 10:46; Status DC Tizanidine HCl (Zanaflex) 2 mg PRN BID PRN PO MUSCLE SPASMS Last administered on 08/05/16 13:43; Start 08/05/16 at 13:30; Stop 08/06/16 at 18:00; Status DC Warfarin Sodium (Coumadin) 6 mg 1X WARF ONCE PO Last administered on 08/05/16 18:12; Start 08/05/16 at 16:00; Stop 08/05/16 at 16:01; Status DC Oxycodone HCl (Roxicodone) 5 mg PRN Q3HRS PRN PO PAIN; Start 08/05/16 at 18:00 Oxycodone HCl (Roxicodone) 10 mg PRN Q3HRS PRN PO PAIN Last administered on 08/07 07:33; Start 08/05/16 at 18:00 Acetazolamide (Diamox) 500 mg BID PO Last administered on 08/07/16 08:49; Start 08/06/16 at 10:00 Diltiazem HCl (Cardizem 24hr Cd) 240 mg DAILY PO Last administered on 08/07/16 08:49; Start 08/06/16 at 10:00 Ferrous Sulfate (Feosol) 325 mg BIDWMEALS PO Last administered on 08/07/16 08: 49; Start 08/06/16 at 10:00 Lidocaine (Lidoderm) 10 patch DAILY TP ; Start 08/07/16 at 09:00; Stop 08/07/16 at 09:00; Status DC Lidocaine (Lidoderm) 1 patch DAILY TP Last administered on 08/07/16 08:49; Start 08/06/16 at 10:00 Warfarin Sodium (Coumadin Per Pharmacy) 1 each PRN DAILY PRN MC SEE COMMENTS; Start 08/06/16 at 09:15; Status UNV Enoxaparin Sodium (Lovenox Per Pharmacy Treatment Dosing) 1 each PRN DAILY PRN MC SEE COMMENTS; Start 08/06/16 at 09:15; Status UNV Warfarin Sodium (Coumadin) 6 mg 1X WARF ONCE PO Last administered on 08/06/16 16:55; Start 08/06/16 at 16:00; Stop 08/06/16 at 16:05; Status DC Tizanidine HCl (Zanaflex) 4 mg Q6HRS PO Last administered on 08/07/16 06:32; Start 08/06/16 at 18:00 Methylprednisolone (Medrol) 24 mg ONCE ONCE PO Last administered on 08/06/16 18:03; Start 08/06/16 at 18:00; Stop 08/06/16 at 18:01; Status DC Methylprednisolone (Medrol) 4 mg BIDPCLD PO ; Start 08/06/16 at 12:30; Stop at 17:31; Status UNV Methylprednisolone (Medrol) 4 mg TIDPC PO Last administered on 08/07/16 08:49; Start 08/07/16 at 08:30; Stop 08/07/16 at 17:31 Methylprednisolone (Medrol) 8 mg QHS PO ; Start 08/07/16 at 21:00; Stop 08/07/16 at 21:01 Methylprednisolone (Medrol) 4 mg QIDAFTMEAL PO ; Start 08/08/16 at 09:00; Stop at 21:01 Methylprednisolone (Medrol) 4 mg TID PO ; Start 08/09/16 at 09:00; Stop 08/09/16 at 21:01 Methylprednisolone (Medrol) 4 mg BID PO ; Start 08/10/16 at 09:00; Stop 08/10/16 at 21:01 Methylprednisolone (Medrol) 4 mg DAILY PO ; Start 08/11/16 at 09:00; Stop at 09:01 Pantoprazole Sodium (Protonix) 40 mg DAILYAC PO Last administered on 08/07/16 07:32; Start 08/06/16 at 18:00 Fentanyl (Duragesic 25mcg/ Hr Patch) 1 patch Q3DAYS TD Last administered on 08/06 18:03; Start 08/06/16 at 18:00 Ondansetron HCl (Zofran Odt) 4 mg PRN Q6HRS PRN PO NAUSEA/VOMITING 1st choice Last administered on 08/06/16 23:49; Start 08/06/16 at 19:00 Active Scripts Active Reported Lidocaine 700 Mg Adh..patch 700 Mg TP DAILY Caffeine 200 Mg Tablet 200 Mg PO BID Ferrous Sulfate 325 Mg Tablet 1 Tab PO BID Cyclobenzaprine Hcl 10 Mg Tablet 10 Mg PO TID Oxycodone Hcl 10 Mg Tablet 10 Mg PO PRN Q3HRS PRN Oxycodone Hcl 5 Mg Capsule 5 Mg PO PRN Q3HRS PRN Cardizem Cd (Diltiazem Hcl) 240 Mg Cap.er.24h 1 Cap PO DAILY Lovenox (Enoxaparin Sodium) 40 Mg/0.4 Ml Disp.syrin 120 Mg SQ BID Diamox Sequels (Acetazolamide) 500 Mg Capsule.er 500 Mg AD BID Coumadin (Warfarin Sodium) 5 Mg Tablet 6 Mg PO DAILY Vitals/I & O Vital Sign - Last 24 Hours 08/06/16 08/06/16 08/06/16 08/06/16 11:00 12:16 12:16 15:00 Temp 97.9 97.7 97.9 97.7 Pulse 77 77 91 Resp 16 B/P (MAP) 118/69 (85) 118/69 117/77 (90) Pulse Ox 98 98 98 O2 Delivery Room Air Room Air Room Air 08/06/16 08/06/16 08/06/16 08/06/16 16:56 18:03 19:00 20:57 Temp 97.9 97.9 Pulse 68 Resp 18 16 B/P (MAP) 95/48 (64) Pulse Ox 98 98 97 97 O2 Delivery Room Air Room Air Room Air Room Air 08/06/16 08/06/16 08/07/16 08/07/16 22:03 22:37 02:40 03:08 Temp 97.9 97.9 Pulse 70 Resp 16 18 17 B/P (MAP) 106/67 (80) Pulse Ox 97 97 97 O2 Delivery Room Air Room Air Room Air Room Air 08/07/16 08/07/16 08/07/16 08/07/16 03:40 07:00 07:33 08:49 Temp 97.8 97.8 Pulse 71 71 Resp 17 16 B/P (MAP) 123/77 (92) 123/77 Pulse Ox 97 98 O2 Delivery Room Air Room Air 08/07/16 08:53 O2 Delivery Room Air Intake and Output 08/06/16 08/06/16 08/07/16 15:00 23:00 07:00 Intake Total 550 ml Balance 550 ml KARI KUHN MD August 07, 2016 09:39
[2016-08-07] MEDS: carBAMazepine 200 MG TABLET PO SCH ×2 (10:13→20:55)
--- NOTE | 2016-08-07 13:11 | PDOC ---
PROGRESS NOTES Chief Complaint Chief Complaint Acute low backpack with paresthesia hx OF DVT/PE on warfarin -subtherapeutic Benign INtracranial HTN FActor 5 def History of Present Illness History of Present Illness BAck pain better today than yesterday Dw physiatry Waiting on back brace Thoughs about EMG which can be done as OP Started on tegretol INR 2.0 today - on warf PLAn: Wait for back brace Dc lovenox BID PT/OT Will need tegretol rx on dc If cont to do better home naomi - dw her and physiatry Vitals Vitals Vital Signs Date Time Temp Pulse Resp B/P (MAP) Pulse Ox O2 Delivery O2 Flow Rate FiO2 08/07/16 12:15 Room Air 08/07/16 11:09 98.6 62 16 117/65 (82) 97 98.6 Physical Exam General: Alert, Oriented X3 Heart: Normal S1, Normal S2 Lungs: Clear Abdomen: Normal bowel sounds Labs LABS Laboratory Tests Test 08/07/16 06:40 Prothrombin Time 21.6 SEC (11.7-14.0) Prothromb Time International Ratio 2.0 (0.8-1.1) Review of Systems Review of Systems back pain, dizzy, no diarrhea or emesis Assessment and Plan Assessmemt and Plan Problems Medical Problems: (1) Paresthesia of bilateral legs Status: Acute Problems: Comment Review of Relevant I have reviewed the following items юлия (where applicable) has been applied. Labs Laboratory Tests Test 08/06/16 06:55 08/07/16 06:40 Prothrombin Time 19.6 SEC (11.7-14.0) 21.6 SEC (11.7-14.0) Prothromb Time International Ratio 1.8 (0.8-1.1) 2.0 (0.8-1.1) Laboratory Tests Test 08/07/16 06:40 Prothrombin Time 21.6 SEC (11.7-14.0) Prothromb Time International Ratio 2.0 (0.8-1.1) Medications Current Medications Ondansetron HCl (Zofran) 4 mg PRN Q8HRS PRN IV NAUSEA/VOMITING Last administered on 08/05/16t 14:38; Start 08/04/16 at 22:30; Stop 08/05/16 at 22:29; Status DC Fentanyl Citrate (Fentanyl 2ml Vial) 50 mcg PRN Q2HR PRN IV SEVERE PAIN Last administered on 08/05/16 20:49; Start 08/04/16 at 22:30; Stop 08/05/16 at 22:29; Status DC Enoxaparin Sodium (Lovenox 100mg Syringe) 100 mg Q12HR SQ Last administered on 08/07/16 08:50; Start 08/05/16 at 01:30 Warfarin Sodium (Coumadin Per Pharmacy) 1 each PRN DAILY PRN MC SEE COMMENTS Last administered on 08/05/16 15:00; Start 08/05/16 at 01:15 Warfarin Sodium (Coumadin) 7.5 mg 1X ONCE PO Last administered on 08/05/16 01: 30; Start 08/05/16 at 01:30; Stop 08/05/16 at 01:31; Status DC Info (Anti-Coagulation Monitoring By Pharmacy) 1 each PRN DAILY PRN MC SEE COMMENTS Last administered on 08/06/16 15:47; Start 08/05/16 at 01:15 Gadobutrol (Gadavist) 10 mmol 1X ONCE IV Last administered on 08/05/16 11:09; Start 08/05/16 at 10:45; Stop 08/05/16 at 10:46; Status DC Tizanidine HCl (Zanaflex) 2 mg PRN BID PRN PO MUSCLE SPASMS Last administered on 08/05/16 13:43; Start 08/05/16 at 13:30; Stop 08/06/16 at 18:00; Status DC Warfarin Sodium (Coumadin) 6 mg 1X WARF ONCE PO Last administered on 08/05/16 18:12; Start 08/05/16 at 16:00; Stop 08/05/16 at 16:01; Status DC Oxycodone HCl (Roxicodone) 5 mg PRN Q3HRS PRN PO PAIN; Start 08/05/16 at 18:00 Oxycodone HCl (Roxicodone) 10 mg PRN Q3HRS PRN PO PAIN Last administered on 08/07 12:15; Start 08/05/16 at 18:00 Acetazolamide (Diamox) 500 mg BID PO Last administered on 08/07/16 08:49; Start 08/06/16 at 10:00 Diltiazem HCl (Cardizem 24hr Cd) 240 mg DAILY PO Last administered on 08/07/16 08:49; Start 08/06/16 at 10:00 Ferrous Sulfate (Feosol) 325 mg BIDWMEALS PO Last administered on 08/07/16 08: 49; Start 08/06/16 at 10:00 Lidocaine (Lidoderm) 10 patch DAILY TP ; Start 08/07/16 at 09:00; Stop 08/07/16 at 09:00; Status DC Lidocaine (Lidoderm) 1 patch DAILY TP Last administered on 08/07/16 08:49; Start 08/06/16 at 10:00 Warfarin Sodium (Coumadin Per Pharmacy) 1 each PRN DAILY PRN MC SEE COMMENTS; Start 08/06/16 at 09:15; Status UNV Enoxaparin Sodium (Lovenox Per Pharmacy Treatment Dosing) 1 each PRN DAILY PRN MC SEE COMMENTS; Start 08/06/16 at 09:15; Status UNV Warfarin Sodium (Coumadin) 6 mg 1X WARF ONCE PO Last administered on 08/06/16 16:55; Start 08/06/16 at 16:00; Stop 08/06/16 at 16:05; Status DC Tizanidine HCl (Zanaflex) 4 mg Q6HRS PO Last administered on 08/07/16 12:15; Start 08/06/16 at 18:00 Methylprednisolone (Medrol) 24 mg ONCE ONCE PO Last administered on 08/06/16 18:03; Start 08/06/16 at 18:00; Stop 08/06/16 at 18:01; Status DC Methylprednisolone (Medrol) 4 mg BIDPCLD PO ; Start 08/06/16 at 12:30; Stop at 17:31; Status UNV Methylprednisolone (Medrol) 4 mg TIDPC PO Last administered on 08/07/16 12:15; Start 08/07/16 at 08:30; Stop 08/07/16 at 17:31 Methylprednisolone (Medrol) 8 mg QHS PO ; Start 08/07/16 at 21:00; Stop 08/07/16 at 21:01 Methylprednisolone (Medrol) 4 mg QIDAFTMEAL PO ; Start 08/08/16 at 09:00; Stop at 21:01 Methylprednisolone (Medrol) 4 mg TID PO ; Start 08/09/16 at 09:00; Stop 08/09/16 at 21:01 Methylprednisolone (Medrol) 4 mg BID PO ; Start 08/10/16 at 09:00; Stop 08/10/16 at 21:01 Methylprednisolone (Medrol) 4 mg DAILY PO ; Start 08/11/16 at 09:00; Stop at 09:01 Pantoprazole Sodium (Protonix) 40 mg DAILYAC PO Last administered on 08/07/16 07:32; Start 08/06/16 at 18:00 Fentanyl (Duragesic 25mcg/ Hr Patch) 1 patch Q3DAYS TD Last administered on 08/06 18:03; Start 08/06/16 at 18:00 Ondansetron HCl (Zofran Odt) 4 mg PRN Q6HRS PRN PO NAUSEA/VOMITING 1st choice Last administered on 08/06/16 23:49; Start 08/06/16 at 19:00 Carbamazepine (Tegretol) 200 mg BID PO Last administered on 08/07/16 10:13; Start 08/07/16 at 10:00 Active Scripts Active Reported Lidocaine 700 Mg Adh..patch 700 Mg TP DAILY Caffeine 200 Mg Tablet 200 Mg PO BID Ferrous Sulfate 325 Mg Tablet 1 Tab PO BID Cyclobenzaprine Hcl 10 Mg Tablet 10 Mg PO TID Oxycodone Hcl 10 Mg Tablet 10 Mg PO PRN Q3HRS PRN Oxycodone Hcl 5 Mg Capsule 5 Mg PO PRN Q3HRS PRN Cardizem Cd (Diltiazem Hcl) 240 Mg Cap.er.24h 1 Cap PO DAILY Lovenox (Enoxaparin Sodium) 40 Mg/0.4 Ml Disp.syrin 120 Mg SQ BID Diamox Sequels (Acetazolamide) 500 Mg Capsule.er 500 Mg AD BID Coumadin (Warfarin Sodium) 5 Mg Tablet 6 Mg PO DAILY Vitals/I & O Vital Sign - Last 24 Hours 08/06/16 08/06/16 08/06/16 08/06/16 15:00 16:56 18:03 19:00 Temp 97.7 97.9 97.7 97.9 Pulse 91 68 Resp 16 18 B/P (MAP) 117/77 (90) 95/48 (64) Pulse Ox 98 98 98 97 O2 Delivery Room Air Room Air Room Air Room Air 08/06/16 08/06/16 08/06/16 08/07/16 20:57 22:03 22:37 02:40 Temp 97.9 97.9 Pulse 70 Resp 16 18 17 B/P (MAP) 106/67 (80) Pulse Ox 97 97 97 97 O2 Delivery Room Air Room Air Room Air Room Air 08/07/16 08/07/16 08/07/16 08/07/16 03:08 03:40 07:00 07:33 Temp 97.8 97.8 Pulse 71 Resp 17 16 B/P (MAP) 123/77 (92) Pulse Ox 97 98 O2 Delivery Room Air Room Air Room Air 08/07/16 08/07/16 08/07/16 08/07/16 08:49 08:53 11:09 12:15 Temp 98.6 98.6 Pulse 71 62 Resp 16 B/P (MAP) 123/77 117/65 (82) Pulse Ox 97 O2 Delivery Room Air Room Air Room Air Intake and Output 08/06/16 08/06/16 08/07/16 14:59 22:59 06:59 Intake Total 550 ml Balance 550 ml CHRISTIANO MCADAMS MD August 07, 2016 13:11
--- NOTE | 2016-08-07 15:22 | PDOC ---
PROGRESS NOTES Assessment Problems Medical Problems: (1) Paresthesia of bilateral legs Status: Acute Leg paresthesia without evidence of myelopathy, radiculopathy, or peripheral neuropathy; I suspect conversion disorder Note Dr. 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 She has had negative EMG in past. Aim for discharge with perhaps outpatient PT by tomorrow. I do not support inpatient rehab treatment of conversion reaction. Subjective feels better, still unsteady walking Objective Vital Signs Date Time Temp Pulse Resp B/P (MAP) Pulse Ox O2 Delivery O2 Flow Rate FiO2 08/07/16 12:15 Room Air 08/07/16 11:09 98.6 62 16 117/65 (82) 97 98.6 Intake and Output 08/07/16 06:59 Intake Total 550 ml Balance 550 ml Intake Oral 550 ml # Voids 5 PHYSICAL EXAM Alert. Oriented to time, place and person. PERRL. EOMI. CN: no focal findings. Mild bilateral papilledema Muscle tone: normal. Muscle strength: 5/5 DTR: 2+ including the knees and ankles Plantar reflex: flexor Gait: able to stand, stiff non-organic gait Sensory exam: stocking loss abruptly stopping at both knees. No cerebellar signs elicited. Review of Relevant I have reviewed the following items юлия (where applicable) has been applied. Labs Laboratory Tests Test 08/06/16 06:55 08/07/16 06:40 Prothrombin Time 19.6 SEC (11.7-14.0) 21.6 SEC (11.7-14.0) Prothromb Time International Ratio 1.8 (0.8-1.1) 2.0 (0.8-1.1) Laboratory Tests Test 08/07/16 06:40 Prothrombin Time 21.6 SEC (11.7-14.0) Prothromb Time International Ratio 2.0 (0.8-1.1) Medications Current Medications Ondansetron HCl (Zofran) 4 mg PRN Q8HRS PRN IV NAUSEA/VOMITING Last administered on 08/05/16t 14:38; Start 08/04/16 at 22:30; Stop 08/05/16 at 22:29; Status DC Fentanyl Citrate (Fentanyl 2ml Vial) 50 mcg PRN Q2HR PRN IV SEVERE PAIN Last administered on 08/05/16 20:49; Start 08/04/16 at 22:30; Stop 08/05/16 at 22:29; Status DC Enoxaparin Sodium (Lovenox 100mg Syringe) 100 mg Q12HR SQ Last administered on 08/07/16 08:50; Start 08/05/16 at 01:30; Stop 08/07/16 at 13:10; Status DC Warfarin Sodium (Coumadin Per Pharmacy) 1 each PRN DAILY PRN MC SEE COMMENTS Last administered on 08/07/16 14:25; Start 08/05/16 at 01:15 Warfarin Sodium (Coumadin) 7.5 mg 1X ONCE PO Last administered on 08/05/16 01: 30; Start 08/05/16 at 01:30; Stop 08/05/16 at 01:31; Status DC Info (Anti-Coagulation Monitoring By Pharmacy) 1 each PRN DAILY PRN MC SEE COMMENTS Last administered on 08/06/16 15:47; Start 08/05/16 at 01:15; Stop at 14:22; Status DC Gadobutrol (Gadavist) 10 mmol 1X ONCE IV Last administered on 08/05/16 11:09; Start 08/05/16 at 10:45; Stop 08/05/16 at 10:46; Status DC Tizanidine HCl (Zanaflex) 2 mg PRN BID PRN PO MUSCLE SPASMS Last administered on 08/05/16 13:43; Start 08/05/16 at 13:30; Stop 08/06/16 at 18:00; Status DC Warfarin Sodium (Coumadin) 6 mg 1X WARF ONCE PO Last administered on 08/05/16 18:12; Start 08/05/16 at 16:00; Stop 08/05/16 at 16:01; Status DC Oxycodone HCl (Roxicodone) 5 mg PRN Q3HRS PRN PO PAIN; Start 08/05/16 at 18:00 Oxycodone HCl (Roxicodone) 10 mg PRN Q3HRS PRN PO PAIN Last administered on 08/07 12:15; Start 08/05/16 at 18:00 Acetazolamide (Diamox) 500 mg BID PO Last administered on 08/07/16 08:49; Start 08/06/16 at 10:00 Diltiazem HCl (Cardizem 24hr Cd) 240 mg DAILY PO Last administered on 08/07/16 08:49; Start 08/06/16 at 10:00 Ferrous Sulfate (Feosol) 325 mg BIDWMEALS PO Last administered on 08/07/16 08: 49; Start 08/06/16 at 10:00 Lidocaine (Lidoderm) 10 patch DAILY TP ; Start 08/07/16 at 09:00; Stop 08/07/16 at 09:00; Status DC Lidocaine (Lidoderm) 1 patch DAILY TP Last administered on 08/07/16 08:49; Start 08/06/16 at 10:00 Warfarin Sodium (Coumadin Per Pharmacy) 1 each PRN DAILY PRN MC SEE COMMENTS; Start 08/06/16 at 09:15; Status UNV Enoxaparin Sodium (Lovenox Per Pharmacy Treatment Dosing) 1 each PRN DAILY PRN MC SEE COMMENTS; Start 08/06/16 at 09:15; Status UNV Warfarin Sodium (Coumadin) 6 mg 1X WARF ONCE PO Last administered on 08/06/16 16:55; Start 08/06/16 at 16:00; Stop 08/06/16 at 16:05; Status DC Tizanidine HCl (Zanaflex) 4 mg Q6HRS PO Last administered on 08/07/16 12:15; Start 08/06/16 at 18:00 Methylprednisolone (Medrol) 24 mg ONCE ONCE PO Last administered on 08/06/16 18:03; Start 08/06/16 at 18:00; Stop 08/06/16 at 18:01; Status DC Methylprednisolone (Medrol) 4 mg BIDPCLD PO ; Start 08/06/16 at 12:30; Stop at 17:31; Status UNV Methylprednisolone (Medrol) 4 mg TIDPC PO Last administered on 08/07/16 12:15; Start 08/07/16 at 08:30; Stop 08/07/16 at 17:31 Methylprednisolone (Medrol) 8 mg QHS PO ; Start 08/07/16 at 21:00; Stop 08/07/16 at 21:01 Methylprednisolone (Medrol) 4 mg QIDAFTMEAL PO ; Start 08/08/16 at 09:00; Stop at 21:01 Methylprednisolone (Medrol) 4 mg TID PO ; Start 08/09/16 at 09:00; Stop 08/09/16 at 21:01 Methylprednisolone (Medrol) 4 mg BID PO ; Start 08/10/16 at 09:00; Stop 08/10/16 at 21:01 Methylprednisolone (Medrol) 4 mg DAILY PO ; Start 08/11/16 at 09:00; Stop at 09:01 Pantoprazole Sodium (Protonix) 40 mg DAILYAC PO Last administered on 08/07/16 07:32; Start 08/06/16 at 18:00 Fentanyl (Duragesic 25mcg/ Hr Patch) 1 patch Q3DAYS TD Last administered on 08/06 18:03; Start 08/06/16 at 18:00 Ondansetron HCl (Zofran Odt) 4 mg PRN Q6HRS PRN PO NAUSEA/VOMITING 1st choice Last administered on 08/06/16 23:49; Start 08/06/16 at 19:00 Carbamazepine (Tegretol) 200 mg BID PO Last administered on 08/07/16 10:13; Start 08/07/16 at 10:00 Warfarin Sodium (Coumadin) 6 mg 1X WARF ONCE PO ; Start 08/07/16 at 16:00; Stop 08/07/16 at 16:01 Active Scripts Active Reported Lidocaine 700 Mg Adh..patch 700 Mg TP DAILY Caffeine 200 Mg Tablet 200 Mg PO BID Ferrous Sulfate 325 Mg Tablet 1 Tab PO BID Cyclobenzaprine Hcl 10 Mg Tablet 10 Mg PO TID Oxycodone Hcl 10 Mg Tablet 10 Mg PO PRN Q3HRS PRN Oxycodone Hcl 5 Mg Capsule 5 Mg PO PRN Q3HRS PRN Cardizem Cd (Diltiazem Hcl) 240 Mg Cap.er.24h 1 Cap PO DAILY Lovenox (Enoxaparin Sodium) 40 Mg/0.4 Ml Disp.syrin 120 Mg SQ BID Diamox Sequels (Acetazolamide) 500 Mg Capsule.er 500 Mg AD BID Coumadin (Warfarin Sodium) 5 Mg Tablet 6 Mg PO DAILY Vitals/I & O Vital Sign - Last 24 Hours 08/06/16 08/06/16 08/06/16 08/06/16 16:56 18:03 19:00 20:57 Temp 97.9 97.9 Pulse 68 Resp 16 B/P (MAP) 95/48 (64) Pulse Ox 98 98 97 97 O2 Delivery Room Air Room Air Room Air Room Air 08/06/16 08/06/16 08/07/16 08/07/16 22:03 22:37 02:40 03:08 Temp 97.9 97.9 Pulse 70 Resp B/P (MAP) 106/67 (80) Pulse Ox 97 97 97 O2 Delivery Room Air Room Air Room Air Room Air 08/07/16 08/07/16 08/07/16 08/07/16 03:40 07:00 07:33 08:49 Temp 97.8 97.8 Pulse 71 71 Resp 16 B/P (MAP) 123/77 (92) 123/77 Pulse Ox 97 98 O2 Delivery Room Air Room Air 08/07/16 08/07/16 08/07/16 08:53 11:09 12:15 Temp 98.6 98.6 Pulse 62 Resp 16 B/P (MAP) 117/65 (82) Pulse Ox 97 O2 Delivery Room Air Room Air Room Air Intake and Output 08/06/16 08/06/16 08/07/16 14:59 22:59 06:59 Intake Total 550 ml Balance 550 ml GIANFRANCO CONTRERAS MD August 07, 2016 15:21
[2016-08-07] MEDS ORDERED: WARFARIN 6 MG TABLET. PO ONE (16:00)
[2016-08-07] MEDS ORDERED: methylPREDNISolone 4 MG TABLET. PO SCH (21:00)
[2016-08-08] MEDS: tiZANidine 4 MG TABLET. PO SCH ×3 (00:21→13:08)
[2016-08-08] MEDS: oxyCODONE IR 5 MG TABLET PO PRN ×3 (03:33→13:07)
[2016-08-08 05:47] LABS: INR 2.5 (0.8-1.1); PROTHROMBIN TIME PATIENT 25.2 SEC (11.7-14.0)
[2016-08-08 07:45] VITALS: BP 114/60
[2016-08-08] MEDS: FERROUS SULFATE 325 MG TABLET. PO SCH (08:42)
[2016-08-08] MEDS: PANTOPRAZOLE 40 MG TABLET.DR. PO SCH (08:43)
[2016-08-08] MEDS: methylPREDNISolone 4 MG TABLET. PO SCH ×2 (08:43→13:08)
[2016-08-08] MEDS: carBAMazepine 200 MG TABLET PO SCH (08:44)
[2016-08-08] MEDS ORDERED: CARB200T PO (09:07)
--- NOTE | 2016-08-08 09:36 | PDOC ---
PROGRESS NOTES Subjective Subjective She feels better pain control with medicines and still feels unsteady on her feet. Objective Objective Vital Signs Date Time Temp Pulse Resp B/P (MAP) Pulse Ox O2 Delivery O2 Flow Rate FiO2 08/08/16 08:42 Room Air 08/08/16 07:45 97.4 61 20 114/60 (78) 99 97.4 Intake and Output 08/08/16 07:00 Intake Total 460 ml Balance 460 ml Intake Oral 460 ml # Voids 7 Physical Exam Physical Exam She did walk for 250 with holding on to rail in hallway with physical therapy and is independent with her mobility and most of her ADLs. Assessment Assessment Problems Medical Problems: (1) Paresthesia of bilateral legs Status: Acute Plan Plan of Longterm when medically stable with out patient follow up. Comment Review of Relevant I have reviewed the following items юлия (where applicable) has been applied. Labs Laboratory Tests Test 08/07/16 06:40 08/08/16 05:20 Prothrombin Time 21.6 SEC (11.7-14.0) 25.2 SEC (11.7-14.0) Prothromb Time International Ratio 2.0 (0.8-1.1) 2.5 (0.8-1.1) Erythrocyte Sedimentation Rate 7 (0-25) Laboratory Tests Test 08/08/16 05:20 Erythrocyte Sedimentation Rate 7 (0-25) Prothrombin Time 25.2 SEC (11.7-14.0) Prothromb Time International Ratio 2.5 (0.8-1.1) Medications Current Medications Ondansetron HCl (Zofran) 4 mg PRN Q8HRS PRN IV NAUSEA/VOMITING Last administered on 08/05/16 14:38; Start 08/04/16 at 22:30; Stop 08/05/16 at 22:29; Status DC Fentanyl Citrate (Fentanyl 2ml Vial) 50 mcg PRN Q2HR PRN IV SEVERE PAIN Last administered on 08/05/16 20:49; Start 08/04/16 at 22:30; Stop 08/05/16 at 22:29; Status DC Enoxaparin Sodium (Lovenox 100mg Syringe) 100 mg Q12HR SQ Last administered on 08/07/16 08:50; Start 08/05/16 at 01:30; Stop 08/07/16 at 13:10; Status DC Warfarin Sodium (Coumadin Per Pharmacy) 1 each PRN DAILY PRN MC SEE COMMENTS Last administered on 08/07/16 14:25; Start 08/05/16 at 01:15 Warfarin Sodium (Coumadin) 7.5 mg 1X ONCE PO Last administered on 08/05/16 01: 30; Start 08/05/16 at 01:30; Stop 08/05/16 at 01:31; Status DC Info (Anti-Coagulation Monitoring By Pharmacy) 1 each PRN DAILY PRN MC SEE COMMENTS Last administered on 08/06/16 15:47; Start 08/05/16 at 01:15; Stop at 14:22; Status DC Gadobutrol (Gadavist) 10 mmol 1X ONCE IV Last administered on 08/05/16 11:09; Start 08/05/16 at 10:45; Stop 08/05/16 at 10:46; Status DC Tizanidine HCl (Zanaflex) 2 mg PRN BID PRN PO MUSCLE SPASMS Last administered on 08/05/16 13:43; Start 08/05/16 at 13:30; Stop 08/06/16 at 18:00; Status DC Warfarin Sodium (Coumadin) 6 mg 1X WARF ONCE PO Last administered on 08/05/16 18:12; Start 08/05/16 at 16:00; Stop 08/05/16 at 16:01; Status DC Oxycodone HCl (Roxicodone) 5 mg PRN Q3HRS PRN PO PAIN; Start 08/05/16 at 18:00 Oxycodone HCl (Roxicodone) 10 mg PRN Q3HRS PRN PO PAIN Last administered on 08/08 08:42; Start 08/05/16 at 18:00 Acetazolamide (Diamox) 500 mg BID PO Last administered on 08/08/16 08:52; Start 08/06/16 at 10:00 Diltiazem HCl (Cardizem 24hr Cd) 240 mg DAILY PO Last administered on 08/07/16 08:49; Start 08/06/16 at 10:00 Ferrous Sulfate (Feosol) 325 mg BIDWMEALS PO Last administered on 08/08/16 08: 42; Start 08/06/16 at 10:00 Lidocaine (Lidoderm) 10 patch DAILY TP ; Start 08/07/16 at 09:00; Stop 08/07/16 at 09:00; Status DC Lidocaine (Lidoderm) 1 patch DAILY TP Last administered on 08/07/16 08:49; Start 08/06/16 at 10:00 Warfarin Sodium (Coumadin Per Pharmacy) 1 each PRN DAILY PRN MC SEE COMMENTS; Start 08/06/16 at 09:15; Status UNV Enoxaparin Sodium (Lovenox Per Pharmacy Treatment Dosing) 1 each PRN DAILY PRN MC SEE COMMENTS; Start 08/06/16 at 09:15; Status UNV Warfarin Sodium (Coumadin) 6 mg 1X WARF ONCE PO Last administered on 08/06/16 16:55; Start 08/06/16 at 16:00; Stop 08/06/16 at 16:05; Status DC Tizanidine HCl (Zanaflex) 4 mg Q6HRS PO Last administered on 08/08/16 05:53; Start 08/06/16 at 18:00 Methylprednisolone (Medrol) 24 mg ONCE ONCE PO Last administered on 08/06/16 18:03; Start 08/06/16 at 18:00; Stop 08/06/16 at 18:01; Status DC Methylprednisolone (Medrol) 4 mg BIDPCLD PO ; Start 08/06/16 at 12:30; Stop at 17:31; Status UNV Methylprednisolone (Medrol) 4 mg TIDPC PO Last administered on 08/07/16 17:21; Start 08/07/16 at 08:30; Stop 08/07/16 at 17:31; Status DC Methylprednisolone (Medrol) 8 mg QHS PO Last administered on 08/07/16 20:55; Start 08/07/16 at 21:00; Stop 08/07/16 at 21:01; Status DC Methylprednisolone (Medrol) 4 mg QIDAFTMEAL PO Last administered on 08/08/16 08 :43; Start 08/08/16 at 09:00; Stop 08/08/16 at 21:01 Methylprednisolone (Medrol) 4 mg TID PO ; Start 08/09/16 at 09:00; Stop 08/09/16 at 21:01 Methylprednisolone (Medrol) 4 mg BID PO ; Start 08/10/16 at 09:00; Stop 08/10/16 at 21:01 Methylprednisolone (Medrol) 4 mg DAILY PO ; Start 08/11/16 at 09:00; Stop at 09:01 Pantoprazole Sodium (Protonix) 40 mg DAILYAC PO Last administered on 08/08/16 08:43; Start 08/06/16 at 18:00 Fentanyl (Duragesic 25mcg/ Hr Patch) 1 patch Q3DAYS TD Last administered on 08/06 18:03; Start 08/06/16 at 18:00 Ondansetron HCl (Zofran Odt) 4 mg PRN Q6HRS PRN PO NAUSEA/VOMITING 1st choice Last administered on 08/06/16 23:49; Start 08/06/16 at 19:00 Carbamazepine (Tegretol) 200 mg BID PO Last administered on 08/08/16 08:44; Start 08/07/16 at 10:00 Warfarin Sodium (Coumadin) 6 mg 1X WARF ONCE PO Last administered on 08/07/16 17:21; Start 08/07/16 at 16:00; Stop 08/07/16 at 16:01; Status DC Active Scripts Active Reported Lidocaine 700 Mg Adh..patch 700 Mg TP DAILY Caffeine 200 Mg Tablet 200 Mg PO BID Ferrous Sulfate 325 Mg Tablet 1 Tab PO BID Cyclobenzaprine Hcl 10 Mg Tablet 10 Mg PO TID Oxycodone Hcl 10 Mg Tablet 10 Mg PO PRN Q3HRS PRN Oxycodone Hcl 5 Mg Capsule 5 Mg PO PRN Q3HRS PRN Cardizem Cd (Diltiazem Hcl) 240 Mg Cap.er.24h 1 Cap PO DAILY Lovenox (Enoxaparin Sodium) 40 Mg/0.4 Ml Disp.syrin 120 Mg SQ BID Diamox Sequels (Acetazolamide) 500 Mg Capsule.er 500 Mg AD BID Coumadin (Warfarin Sodium) 5 Mg Tablet 6 Mg PO DAILY Vitals/I & O Vital Sign - Last 24 Hours 08/07/16 08/07/16 08/07/16 08/07/16 11:09 12:15 15:24 17:22 Temp 98.6 97.6 98.6 97.6 Pulse 62 51 Resp 16 16 B/P (MAP) 117/65 (82) 126/63 (84) Pulse Ox 97 98 O2 Delivery Room Air Room Air Room Air Room Air 08/07/16 08/07/16 08/07/16 08/07/16 19:00 20:59 21:02 23:03 Temp 97.5 98.6 97.5 98.6 Pulse 56 56 53 Resp 16 20 16 B/P (MAP) 103/47 (65) 118/64 (82) 111/61 (78) Pulse Ox 97 98 O2 Delivery Room Air Room Air Room Air 08/08/16 08/08/16 08/08/16 08/08/16 03:33 04:36 07:45 08:42 Temp 97.4 97.4 Pulse 61 Resp 20 20 B/P (MAP) 114/60 (78) Pulse Ox 99 O2 Delivery Room Air Room Air Room Air Room Air Intake and Output 08/07/16 08/07/16 08/08/16 15:00 23:00 07:00 Intake Total 360 ml 100 ml Balance 360 ml 100 ml KARI KUHN MD August 08, 2016 09:36
--- NOTE | 2016-08-08 10:28 | PDOC3 ---
Discharge Summary Visit Information Date of Admission: August 04, 2016 Date of Discharge: August 08, 2016 Admitting Diagnosis Comment: Acute low backpack with paresthesia hx OF DVT/PE on warfarin -subtherapeutic Benign INtracranial HTN FActor 5 def Final Diagnosis Problems Medical Problems: (1) Paresthesia of bilateral legs Status: Acute Brief Hospital Course Allergies Allergies Coded Allergies Type Severity Reaction Last Updated Verified adhesive Allergy Intermediate Rash 09/16/13 Yes prochlorperazine Allergy Intermediate Rash 09/16/13 Yes Vital Signs Vital Signs Date Time Temp Pulse Resp B/P (MAP) Pulse Ox O2 Delivery O2 Flow Rate FiO2 08/08/16 08:42 Room Air 08/08/16 07:45 97.4 61 20 114/60 (78) 99 97.4 Lab Results Laboratory Tests Test 08/07/16 06:40 08/08/16 05:20 Prothrombin Time 21.6 SEC (11.7-14.0) 25.2 SEC (11.7-14.0) Prothromb Time International Ratio 2.0 (0.8-1.1) 2.5 (0.8-1.1) Erythrocyte Sedimentation Rate 7 (0-25) Laboratory Tests Test 08/08/16 05:20 Erythrocyte Sedimentation Rate 7 (0-25) Prothrombin Time 25.2 SEC (11.7-14.0) Prothromb Time International Ratio 2.5 (0.8-1.1) Brief Hospital Course Ms. Polanco is a 30 old female admitted for acute on chronic back pain and complained of weakness and parasthesias, CO managed with neuro and physiatry , no organic abN, likely conversion d/o, Back brace acquired, needing narcotic Rx here and upon dc. HX factor 5 on warf Per neuro assessment possible conversion d/o - i concur Pt seen and exmained NArcs rxd Dw RN and pt Requests cab ride PRoC: IMAGING DISPO: HOME Discharge Information Condition at Discharge: Improved, Stable Disposition/Orders: D/C to Home Scheduled Acetazolamide (Diamox Sequels), 500 MG AD BID, (Reported) Caffeine (Caffeine), 200 MG PO BID, (Reported) Cyclobenzaprine Hcl (Cyclobenzaprine Hcl), 10 MG PO TID, (Reported) Diltiazem Hcl (Cardizem Cd), 1 CAP PO DAILY, (Reported) Enoxaparin Sodium (Lovenox), 120 MG SQ BID, (Reported) Ferrous Sulfate (Ferrous Sulfate), 1 TAB PO BID, (Reported) Lidocaine (Lidocaine), 700 MG TP DAILY, (Reported) Warfarin Sodium (Coumadin), 6 MG PO DAILY, (Reported) Scheduled PRN Oxycodone Hcl (Oxycodone Hcl), 5 MG PO PRN Q3HRS PRN for PAIN, (Reported) Oxycodone Hcl (Oxycodone Hcl), 10 MG PO PRN Q3HRS PRN for PAIN, (Reported) Discontinued Medications Warfarin Sodium (Coumadin), 5 MG PO, (Reported) CHRISTIANO MCADAMS MD August 08, 2016 10:28
[2016-08-08 11:00] VITALS: BP 176/79
--- NOTE | 2016-08-08 12:21 | PDOC ---
PROGRESS NOTES Assessment Problems Medical Problems: (1) Paresthesia of bilateral legs Status: Acute Leg paresthesia without evidence of myelopathy, radiculopathy, or peripheral neuropathy; I suspect conversion disorder Note Dr. Corea has diagnosed lumbar strain, started carbamazepine, patient is not sure it has made a difference, denies any side effects. 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 Subjective Feels a little better. Still has a 6/10 headache. Objective Vital Signs Date Time Temp Pulse Resp B/P (MAP) Pulse Ox O2 Delivery O2 Flow Rate FiO2 08/08/16 08:42 Room Air 08/08/16 07:45 97.4 61 20 114/60 (78) 99 97.4 Intake and Output 08/08/16 07:00 Intake Total 460 ml Balance 460 ml Intake Oral 460 ml # Voids 7 PHYSICAL EXAM Alert. Oriented to time, place and person. PERRL. EOMI. CN: no focal findings. Mild bilateral papilledema Muscle tone: normal. Muscle strength: 5/5 DTR: 2+ Plantar reflex: flexor Gait: able to stand, more normal gait Sensory exam: stocking loss abruptly stopping at both knees. No cerebellar signs elicited. Review of Relevant I have reviewed the following items юлия (where applicable) has been applied. Labs Laboratory Tests Test 08/07/16 06:40 08/08/16 05:20 Prothrombin Time 21.6 SEC (11.7-14.0) 25.2 SEC (11.7-14.0) Prothromb Time International Ratio 2.0 (0.8-1.1) 2.5 (0.8-1.1) Erythrocyte Sedimentation Rate 7 (0-25) Laboratory Tests Test 08/08/16 05:20 Erythrocyte Sedimentation Rate 7 (0-25) Prothrombin Time 25.2 SEC (11.7-14.0) Prothromb Time International Ratio 2.5 (0.8-1.1) Medications Current Medications Ondansetron HCl (Zofran) 4 mg PRN Q8HRS PRN IV NAUSEA/VOMITING Last administered on 08/05/16t 14:38; Start 08/04/16 at 22:30; Stop 08/05/16 at 22:29; Status DC Fentanyl Citrate (Fentanyl 2ml Vial) 50 mcg PRN Q2HR PRN IV SEVERE PAIN Last administered on 08/05/16 20:49; Start 08/04/16 at 22:30; Stop 08/05/16 at 22:29; Status DC Enoxaparin Sodium (Lovenox 100mg Syringe) 100 mg Q12HR SQ Last administered on 08/07/16 08:50; Start 08/05/16 at 01:30; Stop 08/07/16 at 13:10; Status DC Warfarin Sodium (Coumadin Per Pharmacy) 1 each PRN DAILY PRN MC SEE COMMENTS Last administered on 08/08/16 12:06; Start 08/05/16 at 01:15 Warfarin Sodium (Coumadin) 7.5 mg 1X ONCE PO Last administered on 08/05/16 01: 30; Start 08/05/16 at 01:30; Stop 08/05/16 at 01:31; Status DC Info (Anti-Coagulation Monitoring By Pharmacy) 1 each PRN DAILY PRN MC SEE COMMENTS Last administered on 08/06/16 15:47; Start 08/05/16 at 01:15; Stop at 14:22; Status DC Gadobutrol (Gadavist) 10 mmol 1X ONCE IV Last administered on 08/05/16 11:09; Start 08/05/16 at 10:45; Stop 08/05/16 at 10:46; Status DC Tizanidine HCl (Zanaflex) 2 mg PRN BID PRN PO MUSCLE SPASMS Last administered on 08/05/16 13:43; Start 08/05/16 at 13:30; Stop 08/06/16 at 18:00; Status DC Warfarin Sodium (Coumadin) 6 mg 1X WARF ONCE PO Last administered on 08/05/16 18:12; Start 08/05/16 at 16:00; Stop 08/05/16 at 16:01; Status DC Oxycodone HCl (Roxicodone) 5 mg PRN Q3HRS PRN PO PAIN; Start 08/05/16 at 18:00 Oxycodone HCl (Roxicodone) 10 mg PRN Q3HRS PRN PO PAIN Last administered on 08/08 08:42; Start 08/05/16 at 18:00 Acetazolamide (Diamox) 500 mg BID PO Last administered on 08/08/16 08:52; Start 08/06/16 at 10:00 Diltiazem HCl (Cardizem 24hr Cd) 240 mg DAILY PO Last administered on 08/07/16 08:49; Start 08/06/16 at 10:00 Ferrous Sulfate (Feosol) 325 mg BIDWMEALS PO Last administered on 08/08/16 08: 42; Start 08/06/16 at 10:00 Lidocaine (Lidoderm) 10 patch DAILY TP ; Start 08/07/16 at 09:00; Stop 08/07/16 at 09:00; Status DC Lidocaine (Lidoderm) 1 patch DAILY TP Last administered on 08/07/16 08:49; Start 08/06/16 at 10:00 Warfarin Sodium (Coumadin Per Pharmacy) 1 each PRN DAILY PRN MC SEE COMMENTS; Start 08/06/16 at 09:15; Status UNV Enoxaparin Sodium (Lovenox Per Pharmacy Treatment Dosing) 1 each PRN DAILY PRN MC SEE COMMENTS; Start 08/06/16 at 09:15; Status UNV Warfarin Sodium (Coumadin) 6 mg 1X WARF ONCE PO Last administered on 08/06/16 16:55; Start 08/06/16 at 16:00; Stop 08/06/16 at 16:05; Status DC Tizanidine HCl (Zanaflex) 4 mg Q6HRS PO Last administered on 08/08/16 05:53; Start 08/06/16 at 18:00 Methylprednisolone (Medrol) 24 mg ONCE ONCE PO Last administered on 08/06/16 18:03; Start 08/06/16 at 18:00; Stop 08/06/16 at 18:01; Status DC Methylprednisolone (Medrol) 4 mg BIDPCLD PO ; Start 08/06/16 at 12:30; Stop at 17:31; Status UNV Methylprednisolone (Medrol) 4 mg TIDPC PO Last administered on 08/07/16 17:21; Start 08/07/16 at 08:30; Stop 08/07/16 at 17:31; Status DC Methylprednisolone (Medrol) 8 mg QHS PO Last administered on 08/07/16 20:55; Start 08/07/16 at 21:00; Stop 08/07/16 at 21:01; Status DC Methylprednisolone (Medrol) 4 mg QIDAFTMEAL PO Last administered on 08/08/16 08 :43; Start 08/08/16 at 09:00; Stop 08/08/16 at 21:01 Methylprednisolone (Medrol) 4 mg TID PO ; Start 08/09/16 at 09:00; Stop 08/09/16 at 21:01 Methylprednisolone (Medrol) 4 mg BID PO ; Start 08/10/16 at 09:00; Stop 08/10/16 at 21:01 Methylprednisolone (Medrol) 4 mg DAILY PO ; Start 08/11/16 at 09:00; Stop at 09:01 Pantoprazole Sodium (Protonix) 40 mg DAILYAC PO Last administered on 08/08/16 08:43; Start 08/06/16 at 18:00 Fentanyl (Duragesic 25mcg/ Hr Patch) 1 patch Q3DAYS TD Last administered on 08/06 18:03; Start 08/06/16 at 18:00 Ondansetron HCl (Zofran Odt) 4 mg PRN Q6HRS PRN PO NAUSEA/VOMITING 1st choice Last administered on 08/06/16 23:49; Start 08/06/16 at 19:00 Carbamazepine (Tegretol) 200 mg BID PO Last administered on 08/08/16 08:44; Start 08/07/16 at 10:00 Warfarin Sodium (Coumadin) 6 mg 1X WARF ONCE PO Last administered on 08/07/16 17:21; Start 08/07/16 at 16:00; Stop 08/07/16 at 16:01; Status DC Warfarin Sodium (Coumadin) 3 mg 1X WARF ONCE PO ; Start 08/08/16 at 14:00; Stop 08/08/16 at 14:01 Active Scripts Active Tegretol (Carbamazepine) 200 Mg Tablet 1 Tab PO BID Reported Lidocaine 700 Mg Adh..patch 700 Mg TP DAILY Caffeine 200 Mg Tablet 200 Mg PO BID Ferrous Sulfate 325 Mg Tablet 1 Tab PO BID Cyclobenzaprine Hcl 10 Mg Tablet 10 Mg PO TID Oxycodone Hcl 10 Mg Tablet 10 Mg PO PRN Q3HRS PRN Oxycodone Hcl 5 Mg Capsule 5 Mg PO PRN Q3HRS PRN Cardizem Cd (Diltiazem Hcl) 240 Mg Cap.er.24h 1 Cap PO DAILY Lovenox (Enoxaparin Sodium) 40 Mg/0.4 Ml Disp.syrin 120 Mg SQ BID Diamox Sequels (Acetazolamide) 500 Mg Capsule.er 500 Mg AD BID Coumadin (Warfarin Sodium) 5 Mg Tablet 6 Mg PO DAILY Vitals/I & O Vital Sign - Last 24 Hours 08/07/16 08/07/16 08/07/16 08/07/16 15:24 17:22 19:00 20:59 Temp 97.6 97.5 97.6 97.5 Pulse 51 56 56 Resp 16 16 B/P (MAP) 126/63 (84) 103/47 (65) 118/64 (82) Pulse Ox 98 97 O2 Delivery Room Air Room Air Room Air 08/07/16 08/07/16 08/08/16 08/08/16 21:02 23:03 03:33 04:36 Temp 98.6 98.6 Pulse 53 Resp 20 16 20 B/P (MAP) 111/61 (78) Pulse Ox 98 O2 Delivery Room Air Room Air Room Air Room Air 08/08/16 08/08/16 07:45 08:42 Temp 97.4 97.4 Pulse 61 Resp 20 B/P (MAP) 114/60 (78) Pulse Ox 99 O2 Delivery Room Air Room Air Intake and Output 08/07/16 08/07/16 08/08/16 15:00 23:00 07:00 Intake Total 360 ml 100 ml Balance 360 ml 100 ml GIANFRANCO CONTREARS MD August 08, 2016 12:21
[2016-08-08] MEDS ORDERED: WARFARIN 3 MG TABLET. PO ONE (14:00)
[2016-08-09] MEDS ORDERED: methylPREDNISolone 4 MG TABLET. PO SCH (09:00)
[2016-08-10] MEDS ORDERED: methylPREDNISolone 4 MG TABLET. PO SCH (09:00)
[2016-08-11] MEDS ORDERED: methylPREDNISolone 4 MG TABLET. PO SCH (09:00)
== END 2016-08-08 16:02 | disposition home or self-care (01) | DRG 563 ==
LOC: ER 21:54 → 5 SOUTH 22:13
PROVIDERS: ADMIT Internal Medicine; ATTEND Internal Medicine
DX: S39.012A Strain of muscle, fascia and tendon of lower back, initial encounter (principal); D68.2 Hereditary deficiency of other clotting factors; G89.29 Other chronic pain; G93.2 Benign intracranial hypertension; Z83.3 Family history of diabetes mellitus; Z88.8 Allergy status to other drugs, medicaments and biological substances; Z86.711 Personal history of pulmonary embolism; Z82.3 Family history of stroke; Z86.718 Personal history of other venous thrombosis and embolism; Z79.01 Long term (current) use of anticoagulants; Z91.048 Other nonmedicinal substance allergy status
CPT/HCPCS: 36415; 72157; 72158; 80048; 80053; 81001; 85027; 85610; 85651; 85730; A9585; G0481; J1650; J2405; J3010; J7509; Q0162; 97116; 97535; 99285-25

== ENCOUNTER 2016-09-03 17:28 | Emergency (ER) | payer BC ==
[~2016-09-03] VITALS: Ht 170.2 cm; Wt 104.3 kg
[~2016-09-03 17:28] MED LIST changes: +ACET500C15 AD; +CAFF200T13 PO; +CARB200T PO; +CYCL10TA2 PO; +DILT240C2 PO; +ENOX40DI SQ; +FERR-26 PO; +LIDO700A27 TP; +OXYC10TA PO; +OXYC5CAP PO
--- NOTE | 2016-09-03 17:45 | PHYS DOC ---
Past Medical History Past Medical History: DVT, Other Additional Past Medical Histor: Blood clotting disorder - Factor V; PE Past Surgical History: Cholecystectomy, , Other Additional Past Surgical Histo: left common illiac stent placed for dvt, IDIOPATHIC INTERCRANIAL HTN Alcohol Use: Rarely Drug Use: None Adult General HPI HPI Patient is a 30 year old female who presents with chest pain that started at 11 :00pm last night. Patient states she was laying in bed and developed central chest pain. The pain is persisted throughout the day therefore she called EMS to be evaluated. Patient has a history of factor V laden and is currently taking Coumadin however she says she is not therapeutic. Patient has a history of PEs. Patient denies any history of coronary artery disease however does have hypertension. Patient denies any other symptoms. She denies any fevers. Pertinent exam findings: Tachycardia without any murmurs Lungs are clear to auscultation bilaterally without crackles wheeze or rales ED course: Patient was seen and evaluated upon arrival to emergency room CBC, BMP, troponin , EKG, CT angios of the chest were ordered 2311: Discussed results with the patient who is comfortable being discharged home and will follow-up with PCP Pertinent results: 1742: EKG shows normal sinus rhythm rate of 88 no STEMI V/Q scan low probability for PE MDM: After reviewing the chart, CC/HPI/PMH, physical exam, [lab results], [ radiological results], do not believe the patient has an acute PE and believe the patient is low risk for thoracic aortic dissection an acute NV. On reexamination patient is improved. Patient is comfortable going home and will follow-up with PCP. Additional verbal discharge instructions were provided to the patient and that if symptoms get worse or any new symptoms arise that are worrisome to the patient she is to return to the emergency room immediately Review of Systems Review of Systems GEN: Denies fevers, chills, sweats HEENT: Denies blurred vision, sore throat CV: chest pain RESP: Denies shortness of air, cough GI: Denies n/v/d NEURO: Denies confusion, dizziness MSK: Denies weakness, joint pain/swelling Current Medications Current Medications Current Medications Medications (Trade) Dose Ordered Sig/Lisbeth Start Time Stop Time Status Last Admin Dose Admin Fentanyl Citrate (Fentanyl 2ml Vial) 50 mcg 1X ONCE 09/03/16 23:15 09/03/16 23:16 UNV Info (Do NOT chart on this entry -- for MONITORING) 1 each PRN DAILY PRN 09/03/16 18:00 09/05/16 17:59 Iohexol (Omnipaque 300 Mg/ml) 75 ml 1X ONCE 09/03/16 18:00 09/03/16 18:01 DC Ondansetron HCl (Zofran) 4 mg 1X ONCE 09/03/16 19:45 09/03/16 19:46 DC 09/03/16 20:08 4 MG Allergies Allergies Allergies Coded Allergies Type Severity Reaction Last Updated Verified adhesive Allergy Intermediate Rash 09/16/13 Yes prochlorperazine Allergy Intermediate Rash 09/16/13 Yes Physical Exam Physical Exam GEN.: No apparent distress. Alert and oriented. HEENT: Head is normocephalic, atraumatic NECK: Supple. LUNGS: CTAB. HEART: Tachycardia, S1, S2 present. Peripheral pulses intact ABDOMEN: Soft, nontender. Positive bowel sounds. EXTREMITIES: Without any cyanosis. NEUROLOGIC: Normal speech, normal tone PSYCHIATRIC: Normal affect, normal mood. SKIN: No ulcerations Current Patient Data Vital Signs Vital Signs Date Time Temp Pulse Resp B/P (MAP) Pulse Ox O2 Delivery O2 Flow Rate FiO2 09/03/16 20:39 16 Room Air 09/03/16 20:09 97 09/03/16 19:18 141/79 (99) 09/03/16 18:33 96 09/03/16 17:46 98.2 98.2 Lab Values Laboratory Tests Test 09/03/16 17:25 09/03/16 17:44 POC Urine HCG, Qualitative Hcg negative (Negative) White Blood Count 8.7 x10^3/uL (4.0-11.0) Red Blood Count 4.48 x10^6/uL (3.50-5.40) Hemoglobin 12.9 g/dL (12.0-15.5) Hematocrit 36.3 % (36.0-47.0) Mean Corpuscular Volume 81 fL (79-100) Mean Corpuscular Hemoglobin 29 pg (25-35) Mean Corpuscular Hemoglobin Concent 36 g/dL (31-37) Red Cell Distribution Width 15.7 % (11.5-14.5) H Platelet Count 283 x10^3/uL (140-400) Neutrophils (%) (Auto) 78 % (31-73) H Lymphocytes (%) (Auto) 14 % (24-48) L Monocytes (%) (Auto) 8 % (0-9) Eosinophils (%) (Auto) 1 % (0-3) Basophils (%) (Auto) 1 % (0-3) Neutrophils # (Auto) 6.8 x10^3uL (1.8-7.7) Lymphocytes # (Auto) 1.2 x10^3/uL (1.0-4.8) Monocytes # (Auto) 0.7 x10^3/uL (0.0-1.1) Eosinophils # (Auto) 0.0 x10^3/uL (0.0-0.7) Basophils # (Auto) 0.1 x10^3/uL (0.0-0.2) Prothrombin Time 14.8 SEC (11.7-14.0) H Prothrombin Time INR 1.2 (0.8-1.1) H D-Dimer (Floresita) 2.65 ug/mlFEU (0.00-0.50) H Sodium Level 136 mmol/L (136-145) Potassium Level 3.8 mmol/L (3.5-5.1) Chloride Level 102 mmol/L (98-107) Carbon Dioxide Level 19 mmol/L (21-32) L Anion Gap 15 (6-14) H Blood Urea Nitrogen 10 mg/dL (7-20) Creatinine 0.7 mg/dL (0.6-1.0) Estimated GFR (Cockcroft-Gault) 97.6 Glucose Level 126 mg/dL (70-99) H Calcium Level 9.0 mg/dL (8.5-10.1) Troponin I Quantitative < 0.017 ng/mL (0.000-0.055) Laboratory Tests 09/03/16 17:44 Laboratory Tests 09/03/16 17:44 EKG EKG [] Radiology/Procedures Radiology/Procedures V/Q scan Findings: No definite mismatched defects that are worse on the perfusion when compared to the ventilation images. Patchy defects are seen both on the ventilation and perfusion images. Impression: 1. Low probability of pulmonary embolus.[] Course & Med Decision Making Course & Med Decision Making Pertinent Labs and Imaging studies reviewed. (See chart for details) [] Dragon Disclaimer Dragon Disclaimer This electronic medical record was generated, in whole or in part, using a voice recognition dictation system. Departure Departure Impression: Primary Impression: Chest pain Disposition: 01 HOME, SELF-CARE Condition: IMPROVED Referrals: UNKNOWN PCP NAME (PCP) Patient Instructions: Chest Pain (Nonspecific) Additional Instructions: Please follow up with her PCP in one to 2 days Problem Qualifiers Primary Impression: Chest pain Chest pain type: unspecified Qualified Codes: R07.9 - Chest pain, unspecified LEON TEMPLE DO September 03, 2016 17:45
[2016-09-03] MEDS ORDERED: IOHEXOL 300 MG/ML 75 ML VIAL IV ONE (18:00)
[2016-09-03] MEDS ORDERED: CONTRAST GIVEN MC PRN (18:00)
[2016-09-03 18:11] LABS: INR 1.2 (0.8-1.1); PROTHROMBIN TIME PATIENT 14.8 SEC (11.7-14.0)
[2016-09-03 18:12] LABS: BASO # 0.1 x10^3/uL (0.0-0.2); BASO % 1 % (0-3); EOS % 1 % (0-3); HEMATOCRIT 36.3 % (36.0-47.0); HEMOGLOBIN 12.9 g/dL (12.0-15.5); LYMPH # 1.2 x10^3/uL (1.0-4.8); LYMPH % 14 % (24-48); MEAN CORPUSCULAR HEMOGLOBIN 29 pg (25-35); MEAN CORPUSCULAR HGB CONC 36 g/dL (31-37); MEAN CORPUSCULAR VOLUME 81 fL (79-100); MONO % 8 % (0-9); NEUT % 78 % (31-73); PLATELET COUNT 283 x10^3/uL (140-400); RED BLOOD COUNT 4.48 x10^6/uL (3.50-5.40); RED CELL DISTRIBUTION WIDTH 15.7 % (11.5-14.5); WHITE BLOOD COUNT 8.7 x10^3/uL (4.0-11.0)
[2016-09-03 18:17] LABS: CREATININE 0.7 mg/dL (0.6-1.0); GFR 97.6; POTASSIUM 3.8 mmol/L (3.5-5.1)
[2016-09-03 19:18] VITALS: BP 141/79
[2016-09-03] MEDS ORDERED: fentaNYL PF VIAL 100 MCG/2 ML VIAL IV ONE ×2 (19:45→23:15)
[2016-09-03] MEDS ORDERED: ONDANSETRON PF 4 MG/2 ML VIAL. IV ONE (19:45)
--- NOTE | 2016-09-03 23:06 | RAD ---
Indication: Shortness of air Technique: Static images are obtained of both lungs following inhalation of 15 mCi xenon-133 and again following IV administration of 5 mCi of 99 M technetium MAA. Comparison: Chest x-ray same day Findings: No definite mismatched defects that are worse on the perfusion when compared to the ventilation images. Patchy defects are seen both on the ventilation and perfusion images. Impression: 1. Low probability of pulmonary embolus. Electronically signed by: Gonsalo Jimenez MD (09/03/2016 11:03 PM)
--- NOTE | 2016-09-03 23:19 | RAD ---
INDICATION: Chest pain COMPARISON: None FINDINGS: Two view examination of the chest demonstrates no focal airspace consolidation. No pneumothorax. Cardiomediastinal contour within normal limits. No acute osseous abnormality. IMPRESSION: Hypoexpanded exam without definite infiltrate. Electronically signed by: Gonsalo Jimenez MD (09/03/2016 11:16 PM)
--- NOTE | 2016-09-04 07:05 | EKG ---
[facility] [address] [place] [address] Test Date: 2016-09-03 Test Time: 17:39:50 Pat Name: NELLY PINZON Department: Room: Gender: F Mixing Machine Operator: : 1985 Requested By: LEON TEMPLE Order Number: [id number] Reading MD: Paul Finch Measurements Intervals [place] Rate: 88 P: 156 [place]: 160 QRS: 175 QRSD: 86 T: 174 QT: 358 QTc: 437 Interpretive Statements SR LIMB LEAD MISPLACEMENT. Electronically Signed On 09-07-2016 12:53:38 CDT by Paul Finch
== END 2016-09-03 23:40 | disposition home or self-care (01) ==
LOC: ER 17:28
DX: R07.89 Other chest pain (principal); I10 Essential (primary) hypertension; R00.0 Tachycardia, unspecified; Z86.718 Personal history of other venous thrombosis and embolism; Z90.49 Acquired absence of other specified parts of digestive tract; Z88.8 Allergy status to other drugs, medicaments and biological substances
CPT/HCPCS: 36415; 71020; 78582; 80048; 81025; 84484; 85027; 85379; 85610; 93005; 96374; 96375; 99285; A9540; A9558; J2405; J3010

== ENCOUNTER 2016-11-17 18:28 | Inpatient (IN) | payer SELFPAY ==
[~2016-11-17] VITALS: Ht 170.2 cm; Wt 108.9 kg
[2016-11-17 19:28] LABS: BASO % 0 % (0-3); EOS % 1 % (0-3); LYMPH # 1.3 x10^3/uL (1.0-4.8); LYMPH % 18 % (24-48); MEAN CORPUSCULAR HEMOGLOBIN 28 pg (25-35); MEAN CORPUSCULAR HGB CONC 34 g/dL (31-37); MEAN CORPUSCULAR VOLUME 84 fL (79-100); MONO % 4 % (0-9); NEUT % 77 % (31-73); PLATELET COUNT 342 x10^3/uL (140-400); RED BLOOD COUNT 4.99 x10^6/uL (3.50-5.40); RED CELL DISTRIBUTION WIDTH 14.4 % (11.5-14.5); WHITE BLOOD COUNT 7.6 x10^3/uL (4.0-11.0)
[2016-11-17] MEDS ORDERED: IOHEXOL 350 MG/ML 100 ML VIAL. IV ONE (19:30)
[2016-11-17 19:54] LABS: NEG OBC UR NEG; POS OBC UR POS
--- NOTE | 2016-11-17 19:59 | PHYS DOC ---
Past Medical History Past Medical History: DVT, Hypertension, Migraines, Other Additional Past Medical Histor: Blood clotting disorder - Factor V; PE, HYPONATREMIA Past Surgical History: Cholecystectomy, , Other Additional Past Surgical Histo: left common illiac stent placed for dvt, IDIOPATHIC INTERCRANIAL HTN Alcohol Use: Rarely Drug Use: None Adult General Chief Complaint Chief Complaint: CHEST PAIN HPI HPI Patient is a 31 year old female presents with left-sided chest pain shortness of breath for the past several days. Patient has factor V Leiden disorder was recently diagnosed with a treated at [facility]. Patient was discharged home on Lovenox bridge for 7 days and instructed to fill limited prescription. However, patient did not fill her Coumadin prescription stating that she could not afford the prescription. Patient also reports right leg pain and swelling. The patient was also treated for C. difficile while at but did not complete her antibiotics. She currently denies diarrhea. She denies fever, chills, nausea vomiting and sweats. Reports occasional cough. No other acute symptoms or complaints. Review of Systems Review of Systems Review symptoms as per history of present illness. All other review symptoms are negative. Current Medications Current Medications Current Medications Medications (Trade) Dose Ordered Sig/Lisbeth Start Time Stop Time Status Last Admin Dose Admin Iohexol (Omnipaque 350 Mg/ml) 100 ml 1X ONCE 11/17/16 19:30 11/17/16 19:31 DC Allergies Allergies Allergies Coded Allergies Type Severity Reaction Last Updated Verified adhesive Allergy Intermediate Rash 09/16/13 Yes prochlorperazine Allergy Intermediate Rash 09/16/13 Yes Physical Exam Physical Exam Constitutional: Well developed, well nourished, no acute distress, non-toxic appearance. [] HENT: Normocephalic, atraumatic, bilateral external ears normal, oropharynx moist, no oral exudates, nose normal. [] Eyes: PERRLA, EOMI, conjunctiva normal, no discharge. [] Neck: Normal range of motion, no tenderness, supple, no stridor. [] Cardiovascular:Heart rate regular rhythm, no murmur [] Lungs & Thorax: Bilateral breath sounds clear to auscultation [] Abdomen: Bowel sounds normal, soft, right calf pain, tenderness. [] Skin: Warm, dry, no erythema, no rash. [] Back: No tenderness, no CVA tenderness. [] Extremities: No tenderness, no cyanosis, no clubbing, ROM intact, no edema. [] Neurologic: Alert and oriented X 3, normal motor function, normal sensory function, no focal deficits noted. [] Psychologic: Affect normal, judgement normal, mood normal. [] Current Patient Data Vital Signs Vital Signs Date Time Temp Pulse Resp B/P (MAP) Pulse Ox O2 Delivery O2 Flow Rate FiO2 11/17/16 18:35 98.0 66 20 161/82 (108) 98 Room Air 98.0 Lab Values Laboratory Tests Test 11/17/16 18:48 White Blood Count 7.6 x10^3/uL (4.0-11.0) Red Blood Count 4.99 x10^6/uL (3.50-5.40) Hemoglobin 14.0 g/dL (12.0-15.5) Hematocrit 42.0 % (36.0-47.0) Mean Corpuscular Volume 84 fL (79-100) Mean Corpuscular Hemoglobin 28 pg (25-35) Mean Corpuscular Hemoglobin Concent 34 g/dL (31-37) Red Cell Distribution Width 14.4 % (11.5-14.5) Platelet Count 342 x10^3/uL (140-400) Neutrophils (%) (Auto) 77 % (31-73) H Lymphocytes (%) (Auto) 18 % (24-48) L Monocytes (%) (Auto) 4 % (0-9) Eosinophils (%) (Auto) 1 % (0-3) Basophils (%) (Auto) 0 % (0-3) Neutrophils # (Auto) 5.9 x10^3uL (1.8-7.7) Lymphocytes # (Auto) 1.3 x10^3/uL (1.0-4.8) Monocytes # (Auto) 0.3 x10^3/uL (0.0-1.1) Eosinophils # (Auto) 0.0 x10^3/uL (0.0-0.7) Basophils # (Auto) 0.0 x10^3/uL (0.0-0.2) Laboratory Tests 11/17/16 18:48 EKG EKG [EKG: Sinus bradycardia, rate 55, no acute ST-T wave changes, QTC 400.] Radiology/Procedures Radiology/Procedures [Chest x-ray: No acute cardiopulmonary disease] CTA chest: Pending Course & Med Decision Making Course & Med Decision Making Pertinent Labs and Imaging studies reviewed. (See chart for details) [Patient with known PE and noncompliant with medications. Patient will be given Lovenox and admitted to the hospital and bridge to Coumadin. Dr. Madden to admit. l] Jyoti Disclaimer Jyoti Disclaimer This electronic medical record was generated, in whole or in part, using a voice recognition dictation system. Departure Departure Impression: Primary Impression: Chest pain Disposition: ADMITTED INPATIENT Admitting Physician: Ginny Madden Condition: STABLE Referrals: NO PCP (PCP) JUAN DUMONT DO Nov 17, 2016 19:59
[2016-11-17 20:23] LABS: CALCIUM 9.2 mg/dL (8.5-10.1); CREATININE 0.6 mg/dL (0.6-1.0); GFR 115.9; POTASSIUM 3.8 mmol/L (3.5-5.1)
[2016-11-17 20:28] LABS: ALBUMIN 3.6 g/dL (3.4-5.0); ALBUMIN/GLOBULIN RATIO 0.8 (1.0-1.7); TOTAL BILIRUBIN 0.5 mg/dL (0.2-1.0); TOTAL PROTEIN 7.9 g/dL (6.4-8.2)
[2016-11-17] MEDS ORDERED: KETOROLAC 15 MG/ML VIAL. IV ONE (21:15)
[2016-11-17 21:30] LABS: INR 1.6 (0.8-1.1); PROTHROMBIN TIME PATIENT 18.3 SEC (11.7-14.0)
--- NOTE | 2016-11-17 21:46 | RAD ---
CTA scan of the Chest with Contrast (Pulmonary Embolism protocol) 11/17/2016 Clinical History: Shortness of breath and chest pain for 2 2 days. History of DVT. Technique: After the intravenous administration of 75 cc of Omnipaque 300, contiguous, 0.625 mm axial sections were obtained through the chest. 2.0 mm axial and 3D MIP coronal and sagittal reconstructed images were obtained. One or more of the following individualized dose reduction techniques were utilized for this study: 1. Automated exposure control. 2. Adjustment of the mA and/or kV according to patient size. 3. Use of iterative reconstruction technique. Findings: Comparison study is dated 07/05/2016. No filling defect is seen within the major branches of either pulmonary artery. There is no CT evidence of pulmonary embolism. The heart and thoracic aorta are within normal limits. Minimal dependent subsegmental atelectasis is seen involving both lungs. No acute pulmonary infiltrate, pleural effusion or pneumothorax is seen. Impression: There is no CT evidence of pulmonary embolism. Electronically signed by: Uriel Lemos MD (11/17/2016 9:43 PM) [facility]
[2016-11-17 22:17] VITALS: BP 143/95
[2016-11-17] MEDS ORDERED: TIZA4TAB PO (22:42)
[2016-11-17] MEDS ORDERED: DILT180C2 PO (22:46)
--- NOTE | 2016-11-17 23:06 | ACF ---
Admission Forms Criteria CARDIOLOGY GRG Clinical Indications for Admission to Inpatient Care ( Tribal/check or initial the applicable condition/criteria) Hospital admission is needed for appropriate care of the patient because of ANY ONE of the following: [ ] I. Hemodynamic instability as indicated by ALL of the following (1)(2)(3) (4)(5)(6)(7)(8)(9)(10) [ ]a) Vital sign abnormality not readily corrected by appropriate treatment with 12-24 hours for ANY ONE: [ ]i) Hypotension that persists despite appropriate treatment (eg, volume repletion) [ ]ii) Tachycardiathat persists despite appropriate tx ( e.g., analgesia, fluids, sedation as indicated [ ]iii) Orthostatic vital sign changes that persists despite appropriate treatment (eg, volume repletion) [ ]b) Vital sign abnormailty that is severe indicated by ANY ONE of the following: [ ]i) Inadequate perfusion indicated by ANY ONE of the following: [ ] 1) Lactic acidosis (> 2 mmol/L) [ ] 2) New abnormal capillary refill (> 3 seconds) [ ] 3) Reduced urine output [ ] 4) New altered mental status [ ] 5) Myocardial Ischemia [ ] 6) Other metabolic acidosis (arterial pH <7.35 ) not otherwise explained. [ ]ii) Mean arterial pressure[A] less than 60 mm Hg [ ]iii) Mean arterial pressure[A] less than 70 mm Hg after 30 minutes of appropriate treatment (eg, fluid resuscitation) [ ]iv) Sustained heart rate greater than 120 beats per minute in adult or child 6 years or older[B] [ ]v) IV inotropic or vasopressor medication required to maintain adequate blood pressure or perfusion [ ] II. Severe heart failure as indicated by ANY ONE of the following(17)(18) [ ]a) Respiratory distress [ ]b) Hypotension [ ]c) Debilitating anasarca refractory to therapy (eg, tissue breakdown with infection)[C](19) [ ]d) Cardiac arrhythmias of immediate concern [ ]e) Myocardial ischemia [ ] III. Cardiac arrhythmias or findings of immediate concern indicated by ANY ONE of the following (21)(22): [ ] a) Heart rhythms that are inherently dangerous or unstable indicated by ANY ONE of the following (23)(24)(25): [ ] i) Resuscitated ventricular fibrillation or cardiac arrest [ ] ii) Ventricular escape rhythm [ ] iii) Sustained ventricular tachycardia (30 seconds or more of ventricular rhythm at greater than 100 beats per minute) [ ] iv) Nonsustained ventricular tachycardia and ANY ONE of the following: [ ] 1) Suspected cardiac ischemia as cause or consequence of ventricular tachycardia [ ] 2) Acute myocarditis [ ] b) Unstable cardiac conduction defects indicated by ANY ONE of the following(25)(26)(27) [ ] i) Type II second-degree atrioventricular block [ ]ii) Third-degree atrioventricular block [ ]iii) New-onset left bundle branch block with suspected myocardial ischemia [ ]c) Any heart rhythm and ANY ONE of the following (23)(24)(28)(29) (30) [ ] i) Continuous long-term ECG monitoring needed (e.g., initiation of drug requiring monitoring for more than 24 hours) [ ] ii) Patient has automatic implanted cardioverter defibrillator that is repeatedly firing, malfunctioning, or in need of immediate adjustment of settings beyond the scope of ambulatory or observation care [ ]d) Heart rhythms of concern due to ANY ONE of the following: [ ] i) Hypotension [ ] ii) Respiratory distress [ ] iii) Association with other significant symptoms (e.g., bradycardia with syncope or ongoing dizziness, supraventricular tachycardia with chest pain (28)(29)(31) [ ] IV. Monitoring for cardiac contusion beyond the scope of observation care needed [A](32)(33)(34) [ ] V. Surgical or device complication (e.g., valve replacement complication , ICD disfunction or pacemaker dysfunction) (49)(50)(51)(52)(53)(54) [ ] . Inpatient palliative care needed. [F](51)(52) Also use Inpatient Palliative Care Criteria [ ] VII. Nonbacterial thrombotic (marantic) endocarditis(43)(44)(55)(56)(57) [X ] VIII. Cardiology condition, symptom, or finding for which emergency and observation care has failed or are not considered appropriate. [ ] IX. Acute valvular disease requiring inpatient as indicated by ANY ONE of the following (40)(41) [ ]a) Acute valvular regurgitation (42) [ ]b) Noninfectious valvulitis (43)(44) [ ]c) Obstructive valve thrombosis (45)(46) [ ]d) Paravalvular leak(47)(48) [ ]e) Other significant valvular disorder remaining after emergency or observation level of care (as appropriate) [ ]X. Pericardial disease requiring inpatient treatment as indicated by ANY ONE of the following (35)(36)(37)(38) [ ]a) Suspected tamponade [ ]b) Hemopericardium [ ]c) Other significant pericardial disorder remaining after emergency or observation level of care (as appropriate)(39) [ ] XI. Cardiac ischemia beyond scope of emergency and observation care. [ ] XII. Cyanotic heart disease requiring inpatient care as indicated by 1 or more of the following(58)(59)(60): [ ]a) Acute onset of hypoxemia [ ]b) Exacerbation [ ] XIII. Hypertension requiring inpatient treatment as indicated by ANYONE of the following(11)(12)(13)(14): [ ]a) Severe hypertension (SBP greater than 180 mm Hg or DBP greater than 110 mm Hg, or greater than the 95th percentile for age, gender, and height in pediatric patients) that cannot be controlled (eg, to SBP less than 160 mm Hg and DBP less than 100 mm Hg) by emergency department or observation care treatment(15) [ ]b) Acute end organ damage secondary to hypertension (SBP greater than 140 mm Hg or DBP greater than 90 mm Hg) as indicated by ANYONE of the following: [ ] i) Hypertensive encephalopathy (eg, Altered mental status)(16) [ ] ii) Cerebral infarction [ ] iii) Intracranial hemorrhage [ ] iv) Myocardial ischemia or infarction [ ] v) Heart failure (eg, pulmonary edema) [ ] vi) Aortic dissection [ ] vii) Increased creatinine (new) with reduction of more than 50% in estimated glomerular filtration rate from baseline [ ] viii) Papilledema [ ] ix) Retinal hemorrhage [ ] x) Microangiopathic hemolytic anemia [ ] xi) Seizure [ ] xii) Other significant finding secondary to hypertension [ ] XIV. Complications of transplanted heart indicated by ANY ONE of the following(61): [ ]a) Acute graft rejection requiring inpatient management (eg, intravenous imunosuppression)(62)(63) [ ]b) Acute graft heart failure indicated by ANY ONE of the following(64): [ ] i) Hemodynamic instability [ ] ii) Cardiac arrhythmias of immediate concern [ ] iii) Pulmonary edema that is very severe (eg, mechanical ventilation needed, imminent or likely, need for 100% oxygen to keep oxygen saturation above 90%) [ ] iv) Pulmonary edema that is persistent as indicated by ALL of the following: [ ] 1) New need for oxygen therapy to keep oxygen saturation above 90 % (or increased FiO2 need from baseline) [ ] 2) Has not improved sufficiently with emergency department or observation care IV diuretics or other heart failure treatments[E]. [ ] iv) Altered mental status that is severe or persistent [ ] iv) Increased creatinine (new on laboratory test) with reduction of more than 50% in estimated glomerular filtration rate from baseline [ ] iv) Progressively (ongoing) rising creatinine (known from past laboratory test) with reduction of more than 25% in estimated glomerular filtration rate from baseline [ ] iv) Acute renal failure [ ] iv) Acute peripheral ischemia (eg, examination shows pulseless, cool, mottled, or cyanotic extremity) [ ] iv) Pulmonary artery catheter monitoring needed [ ] iv) Other sign or symptom of heart failure requiring inpatient treatment (ie, too severe or not responsive to outpatient and observation care treatment) [ ]c) Infection requiring inpatient management (eg, Hemodynamic instability, need for intravenous antimicrobial treatment)(66)(67)(68)(69)(70) [ ]d) Cardiac allograft vasculopathy requiring inpatient management (eg evidence of cardiacischemia)(71) [ ]e) Other complication of transplanted heart (eg, stroke, severe pulmonary hypertension, severe valvular dysfunction) requiring inpatient management(72) The original [employer] content created by [employer] has been revised. The portions of the content which have been revised are identified through the use of italic text, and [facility] has neither reviewed nor approved the modified material. All other unmodified content is copyright [facility]. Please see references footnoted in the original [employer] edition 2014 Admission Criteria Met?: Yes CYRUS ARNDT Nov 17, 2016 23:06
[2016-11-18 03:04] VITALS: BP 155/92
[2016-11-18] MEDS: HYDROcodone/APAP 5/325MG 1 TAB TABLET PO PRN ×3 (04:56→17:02)
[2016-11-18 06:57] VITALS: BP 144/93
--- NOTE | 2016-11-18 07:05 | EKG ---
[facility] [address] [place] [id number] Test Date: 2016-11-17 Test Time: 18:34:22 Pat Name: NELLY PINZON Department: Room: [facility] Gender: F Side Gluer: : 1985 Requested By: JUAN DUMONT Order Number: [id number] Reading MD: Sherie Silvestre Measurements Intervals [place] Rate: 55 P: 33 [place]: 142 QRS: 16 QRSD: 88 T: 11 QT: 416 QTc: 400 Interpretive Statements SINUS ARRYTHMIA OTHERWISE NORMAL ECG Electronically Signed On 11-19-2016 20:26:04 CDT by Sherie Silvestre
[2016-11-18] MEDS: KETOROLAC TROMETHAMINE 30 MG/ML INJ. IV PRN ×3 (08:05→21:17)
--- NOTE | 2016-11-18 08:12 | RAD ---
Portable chest, 11/17/2016: History: Chest pain Comparison is made to a study from 09/03/2016. The heart size and pulmonary vascularity are normal. The lungs are clear. There is no evidence of pleural fluid. IMPRESSION: No acute cardiopulmonary abnormality is detected.
[2016-11-18 10:51] VITALS: BP 143/74
[2016-11-18] MEDS ORDERED: MORPHINE SULFATE 2 MG/ML DISP.SYRIN. IV PRN (14:45)
[2016-11-18] MEDS ORDERED: ACETAMINOPHEN 325 MG TABLET. PO PRN (14:45)
--- NOTE | 2016-11-18 14:52 | PDOC1 ---
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 INR low, CTA neg for PE, did get lovenox therapeutic dose at ER,. NO desats, VS stable,asking for pain meds. CP midsternal to left sided, no diaphoresis, pressure but she looks farely comfortable. NO insurance so cant afford new OAC,. Apparently just recently [facility] but did not fill Rx for OAC. Past Medical History Pulmonary: Pulmonary embolus CENTRAL NERVOUS SYSTEM: Other Heme/Onc: Other Past Surgical History Past Surgical History: Cholecystectomy, , Other Family History Family History: Family History Unknown Social History Smoke: No ALCOHOL: none Drugs: None Current Medications Current Medications Current Medications Iohexol (Omnipaque 350 Mg/ml) 100 ml 1X ONCE IV ; Start 11/17/16 at 19:30; Stop 11/17/16 at 19:31; Status DC Enoxaparin Sodium (Lovenox 80mg Syringe) 160 mg 1X ONCE SQ Last administered on 11/17/16 20:29; Start 11/17/16 at 20:00; Stop 11/17/16 at 20:02; Status DC Ketorolac Tromethamine (Toradol) 15 mg 1X ONCE IV Last administered on 21:16; Start 11/17/16 at 21:15; Stop 11/17/16 at 21:16; Status DC Acetaminophen/ Hydrocodone Bitart (Lortab 5/325) 1 tab PRN Q6HRS PRN PO PAIN Last administered on 11/18/16 10:59; Start 11/18/16 at 04:45 Ketorolac Tromethamine (Toradol) 30 mg PRN Q6HRS PRN IV PAIN Last administered on 11/18/16 14:30; Start 11/18/16 at 04:45; Stop 11/23/16 at 04:44 Active Scripts Active Reported Cardizem Cd (Diltiazem Hcl) 180 Mg Cap.er.24h 1 Cap PO DAILY Tizanidine Hcl 4 Mg Tablet 1.5 Tab PO TID Ferrous Sulfate 325 Mg Tablet 1 Tab PO BID Diamox Sequels (Acetazolamide) 500 Mg Capsule.er 1,000 Mg AD BID Coumadin (Warfarin Sodium) 5 Mg Tablet 6 Mg PO DAILY Allergies Allergies: Coded Allergies: adhesive (Verified Allergy, Intermediate, Rash, 09/16/13) prochlorperazine (Verified Allergy, Intermediate, Rash, 09/16/13) ROS Review of System as per HPI, all else is neg Physical Exam General: Alert, Oriented X3, Cooperative, No acute distress HEENT: Atraumatic, PERRLA, EOMI Lungs: Clear to auscultation, Normal air movement Heart: S1S2, RRR, no thrills, no rubs, no gallops, no murmurs Cardiovascular: S1, S2 Breasts: Normal, Rt breast nml w/o mass, Lt breast nml w/o mass, Nipples normal Abdomen: Normal bowel sounds, Soft, No tenderness, No hepatosplenomegaly, No masses Rectal Exam: not examined PELVIC: Nml ext genitalia Extremities: No clubbing, No cyanosis, No edema, Normal pulses, No tenderness/ swelling Skin: No rashes, No breakdown, No significant lesion Neuro: Normal gait, Normal speech, Strength at 5/5 X4 ext, Normal tone, Sensation intact, Cranial nerves 3-12 NL, Reflexes 2+ Psych/Mental Status: Mental status NL, Mood NL Vitals Vitals Vital Signs Date Time Temp Pulse Resp B/P (MAP) Pulse Ox O2 Delivery O2 Flow Rate FiO2 11/18/16 11:59 16 Room Air 11/18/16 10:51 98.1 64 143/74 (97) 96 98.1 Labs Labs Laboratory Tests Test 11/17/16 18:48 11/17/16 19:25 11/17/16 19:37 White Blood Count 7.6 x10^3/uL (4.0-11.0) Red Blood Count 4.99 x10^6/uL (3.50-5.40) Hemoglobin 14.0 g/dL (12.0-15.5) Hematocrit 42.0 % (36.0-47.0) Mean Corpuscular Volume 84 fL (79-100) Mean Corpuscular Hemoglobin 28 pg (25-35) Mean Corpuscular Hemoglobin Concent 34 g/dL (31-37) Red Cell Distribution Width 14.4 % (11.5-14.5) Platelet Count 342 x10^3/uL (140-400) Neutrophils (%) (Auto) 77 % (31-73) Lymphocytes (%) (Auto) 18 % (24-48) Monocytes (%) (Auto) 4 % (0-9) Eosinophils (%) (Auto) 1 % (0-3) Basophils (%) (Auto) 0 % (0-3) Neutrophils # (Auto) 5.9 x10^3uL (1.8-7.7) Lymphocytes # (Auto) 1.3 x10^3/uL (1.0-4.8) Monocytes # (Auto) 0.3 x10^3/uL (0.0-1.1) Eosinophils # (Auto) 0.0 x10^3/uL (0.0-0.7) Basophils # (Auto) 0.0 x10^3/uL (0.0-0.2) Urine Test Negative (NEG) Prothrombin Time 18.3 SEC (11.7-14.0) Prothromb Time International Ratio 1.6 (0.8-1.1) Activated Partial Thromboplast Time 30 SEC (24-38) Sodium Level 139 mmol/L (136-145) Potassium Level 3.8 mmol/L (3.5-5.1) Chloride Level 102 mmol/L (98-107) Carbon Dioxide Level 25 mmol/L (21-32) Anion Gap 12 (6-14) Blood Urea Nitrogen 5 mg/dL (7-20) Creatinine 0.6 mg/dL (0.6-1.0) Estimated GFR (Cockcroft-Gault) 115.9 BUN/Creatinine Ratio 8 (6-20) Glucose Level 108 mg/dL (70-99) Calcium Level 9.2 mg/dL (8.5-10.1) Total Bilirubin 0.5 mg/dL (0.2-1.0) Aspartate Amino Transf (AST/SGOT) 15 U/L (15-37) Alanine Aminotransferase (ALT/SGPT) 22 U/L (14-59) Alkaline Phosphatase 103 U/L (46-116) Total Protein 7.9 g/dL (6.4-8.2) Albumin 3.6 g/dL (3.4-5.0) Albumin/Globulin Ratio 0.8 (1.0-1.7) Laboratory Tests Test 11/17/16 18:48 11/17/16 19:25 11/17/16 19:37 White Blood Count 7.6 x10^3/uL (4.0-11.0) Red Blood Count 4.99 x10^6/uL (3.50-5.40) Hemoglobin 14.0 g/dL (12.0-15.5) Hematocrit 42.0 % (36.0-47.0) Mean Corpuscular Volume 84 fL (79-100) Mean Corpuscular Hemoglobin 28 pg (25-35) Mean Corpuscular Hemoglobin Concent 34 g/dL (31-37) Red Cell Distribution Width 14.4 % (11.5-14.5) Platelet Count 342 x10^3/uL (140-400) Neutrophils (%) (Auto) 77 % (31-73) Lymphocytes (%) (Auto) 18 % (24-48) Monocytes (%) (Auto) 4 % (0-9) Eosinophils (%) (Auto) 1 % (0-3) Basophils (%) (Auto) 0 % (0-3) Neutrophils # (Auto) 5.9 x10^3uL (1.8-7.7) Lymphocytes # (Auto) 1.3 x10^3/uL (1.0-4.8) Monocytes # (Auto) 0.3 x10^3/uL (0.0-1.1) Eosinophils # (Auto) 0.0 x10^3/uL (0.0-0.7) Basophils # (Auto) 0.0 x10^3/uL (0.0-0.2) Urine Test Negative (NEG) Prothrombin Time 18.3 SEC (11.7-14.0) Prothromb Time International Ratio 1.6 (0.8-1.1) Activated Partial Thromboplast Time 30 SEC (24-38) Sodium Level 139 mmol/L (136-145) Potassium Level 3.8 mmol/L (3.5-5.1) Chloride Level 102 mmol/L (98-107) Carbon Dioxide Level 25 mmol/L (21-32) Anion Gap 12 (6-14) Blood Urea Nitrogen 5 mg/dL (7-20) Creatinine 0.6 mg/dL (0.6-1.0) Estimated GFR (Cockcroft-Gault) 115.9 BUN/Creatinine Ratio 8 (6-20) Glucose Level 108 mg/dL (70-99) Calcium Level 9.2 mg/dL (8.5-10.1) Total Bilirubin 0.5 mg/dL (0.2-1.0) Aspartate Amino Transf (AST/SGOT) 15 U/L (15-37) Alanine Aminotransferase (ALT/SGPT) 22 U/L (14-59) Alkaline Phosphatase 103 U/L (46-116) Total Protein 7.9 g/dL (6.4-8.2) Albumin 3.6 g/dL (3.4-5.0) Albumin/Globulin Ratio 0.8 (1.0-1.7) VTE Prophylaxis Ordered VTE Prophylaxis Devices: Yes VTE Pharmacological Prophylaxi: Yes Assessment/Plan Assessment/Plan 1. Chest pains neg work up 2. FActor 5, hx PE with SUBTHERAPEUTIC INR 3. Obesity 4. Benign Intracranial HTN, - on diamox PLAn: Lovenox weight based Sq BID, Warf per pharmacy Daily INR Goal INR 2-3 Resume home diamox SW assistance for lovenox shots so she can dc soon MOrphine for CP CHRISTIANO MCADAMS MD Nov 18, 2016 14:52
[2016-11-18 15:20] VITALS: BP 154/93
[2016-11-18] MEDS: tiZANidine 4 MG TABLET. PO SCH ×2 (15:25→21:16)
[2016-11-18] MEDS ORDERED: WARFARIN 5 MG TABLET. PO ONE (16:00)
[2016-11-18] MEDS: FERROUS SULFATE 325 MG TABLET. PO SCH (17:01)
[2016-11-18 19:00] VITALS: BP 130/62
[2016-11-18 23:00] VITALS: BP 123/74
[2016-11-19] VITALS (9 sets, daily range): BP systolic 101–138; BP diastolic 51–81
[2016-11-19] MEDS: HYDROcodone/APAP 5/325MG 1 TAB TABLET PO PRN ×3 (01:32→18:16)
[2016-11-19 07:23] LABS: INR 1.4 (0.8-1.1); PROTHROMBIN TIME PATIENT 15.9 SEC (11.7-14.0)
[2016-11-19] MEDS: tiZANidine 4 MG TABLET. PO SCH ×3 (08:46→20:17)
[2016-11-19] MEDS: FERROUS SULFATE 325 MG TABLET. PO SCH ×2 (08:47→17:48)
[2016-11-19] MEDS ORDERED: ONDANSETRON PF 4 MG/2 ML VIAL. IV PRN (10:00)
--- NOTE | 2016-11-19 13:44 | PDOC ---
PROGRESS NOTES Chief Complaint Chief Complaint 1. Chest pains neg work up/ NO PE 2. FActor 5, hx PE with SUBTHERAPEUTIC INR 3. Obesity 4. Benign Intracranial HTN, - on diamox 5. HTN not anymore 6. BRADYCARDIA (11/19) History of Present Illness History of Present Illness Needing IV morphine jaye INR 1.0 CAnt afford lovenox shots SW has given 30 day supply newer OAC but after the 30 days supply she still needs warf with bridging lovenox - needs lifelong coumadin Poor complaince has been documented in past admits Called by RN for HR 40s On cardizem, 180 Mg PO QD for HTN as home med BUt BP running fine here PLAn: Dc cardizem WArf per pharmacy Daily INR To dc home once goal INR 2-3 CAnt afford lovenox shots Dw pt, RN and BASSEM Valeria Vitals Vitals Vital Signs Date Time Temp Pulse Resp B/P (MAP) Pulse Ox O2 Delivery O2 Flow Rate FiO2 11/19/16 11:40 73 112/64 (80) Room Air 11/19/16 11:00 97.7 17 96 97.7 Physical Exam General: Alert, Oriented X3, Cooperative, No acute distress Lungs: Clear Abdomen: Normal bowel sounds, Soft, No tenderness, No hepatosplenomegaly, No masses Extremities: No clubbing, No cyanosis, No edema, Normal pulses, No tenderness/ swelling Skin: No rashes, No breakdown, No significant lesion Labs LABS Laboratory Tests Test 11/19/16 06:50 Prothrombin Time 15.9 SEC (11.7-14.0) Prothromb Time International Ratio 1.4 (0.8-1.1) Review of Systems Review of Systems neg 14 pt reviewed Comment Review of Relevant I have reviewed the following items юлия (where applicable) has been applied. Labs Laboratory Tests Test 11/17/16 18:48 11/17/16 19:25 11/17/16 19:37 11/19/16 06:50 White Blood Count 7.6 x10^3/uL (4.0-11.0) Red Blood Count 4.99 x10^6/uL (3.50-5.40) Hemoglobin 14.0 g/dL (12.0-15.5) Hematocrit 42.0 % (36.0-47.0) Mean Corpuscular Volume 84 fL (79-100) Mean Corpuscular Hemoglobin 28 pg (25-35) Mean Corpuscular Hemoglobin Concent 34 g/dL (31-37) Red Cell Distribution Width 14.4 % (11.5-14.5) Platelet Count 342 x10^3/uL (140-400) Neutrophils (%) (Auto) 77 % (31-73) Lymphocytes (%) (Auto) 18 % (24-48) Monocytes (%) (Auto) 4 % (0-9) Eosinophils (%) (Auto) 1 % (0-3) Basophils (%) (Auto) 0 % (0-3) Neutrophils # (Auto) 5.9 x10^3uL (1.8-7.7) Lymphocytes # (Auto) 1.3 x10^3/uL (1.0-4.8) Monocytes # (Auto) 0.3 x10^3/uL (0.0-1.1) Eosinophils # (Auto) 0.0 x10^3/uL (0.0-0.7) Basophils # (Auto) 0.0 x10^3/uL (0.0-0.2) Urine Test Negative (NEG) Prothrombin Time 18.3 SEC (11.7-14.0) 15.9 SEC (11.7-14.0) Prothromb Time International Ratio 1.6 (0.8-1.1) 1.4 (0.8-1.1) Activated Partial Thromboplast Time 30 SEC (24-38) Sodium Level 139 mmol/L (136-145) Potassium Level 3.8 mmol/L (3.5-5.1) Chloride Level 102 mmol/L (98-107) Carbon Dioxide Level 25 mmol/L (21-32) Anion Gap 12 (6-14) Blood Urea Nitrogen 5 mg/dL (7-20) Creatinine 0.6 mg/dL (0.6-1.0) Estimated GFR (Cockcroft-Gault) 115.9 BUN/Creatinine Ratio 8 (6-20) Glucose Level 108 mg/dL (70-99) Calcium Level 9.2 mg/dL (8.5-10.1) Total Bilirubin 0.5 mg/dL (0.2-1.0) Aspartate Amino Transf (AST/SGOT) 15 U/L (15-37) Alanine Aminotransferase (ALT/SGPT) 22 U/L (14-59) Alkaline Phosphatase 103 U/L (46-116) Total Protein 7.9 g/dL (6.4-8.2) Albumin 3.6 g/dL (3.4-5.0) Albumin/Globulin Ratio 0.8 (1.0-1.7) Laboratory Tests Test 11/19/16 06:50 Prothrombin Time 15.9 SEC (11.7-14.0) Prothromb Time International Ratio 1.4 (0.8-1.1) Medications Current Medications Iohexol (Omnipaque 350 Mg/ml) 100 ml 1X ONCE IV ; Start 11/17/16 at 19:30; Stop 11/17/16 at 19:31; Status DC Enoxaparin Sodium (Lovenox 80mg Syringe) 160 mg 1X ONCE SQ Last administered on 11/17/16 20:29; Start 11/17/16 at 20:00; Stop 11/17/16 at 20:02; Status DC Ketorolac Tromethamine (Toradol) 15 mg 1X ONCE IV Last administered on 21:16; Start 11/17/16 at 21:15; Stop 11/17/16 at 21:16; Status DC Acetaminophen/ Hydrocodone Bitart (Lortab 5/325) 1 tab PRN Q6HRS PRN PO PAIN Last administered on 11/19/16 08:48; Start 11/18/16 at 04:45 Ketorolac Tromethamine (Toradol) 30 mg PRN Q6HRS PRN IV PAIN Last administered on 11/18/16 21:17; Start 11/18/16 at 04:45; Stop 11/23/16 at 04:44 Enoxaparin Sodium (Lovenox 120mg Syringe) 120 mg Q12HR SQ Last administered on 11/19/16 08:46; Start 11/18/16 at 15:00 Warfarin Sodium (Coumadin Per Pharmacy) 1 each PRN DAILY PRN MC SEE COMMENTS Last administered on 11/19/16 13:21; Start 11/18/16 at 14:45 Morphine Sulfate 2 mg PRN Q2HR PRN IV PAIN; Start 11/18/16 at 14:45 Acetaminophen (Tylenol) 650 mg PRN Q6HRS PRN PO pain; Start 11/18/16 at 14:45 Acetazolamide (Diamox) 1,000 mg BID PO Last administered on 11/19/16 09:54; Start 11/18/16 at 21:00 Diltiazem HCl (Cardizem 24hr Cd) 180 mg DAILY PO Last administered on 08:47; Start 11/18/16 at 15:00; Stop 11/19/16 at 12:53; Status DC Ferrous Sulfate (Feosol) 325 mg BIDWMEALS PO Last administered on 11/19/16 08: 47; Start 11/18/16 at 17:00 Tizanidine HCl (Zanaflex) 6 mg TID PO Last administered on 11/19/16 08:46; Start 11/18/16 at 15:00 Warfarin Sodium (Coumadin) 5 mg 1X WARF ONCE PO Last administered on 17:02; Start 11/18/16 at 16:00; Stop 11/18/16 at 16:01; Status DC Ondansetron HCl (Zofran) 4 mg PRN Q6HRS PRN IV NAUSEA/VOMITING; Start 11/19/16 at 10:00 Warfarin Sodium (Coumadin) 7.5 mg 1X WARF ONCE PO ; Start 11/19/16 at 16:00; Stop 11/19/16 at 16:01 Active Scripts Active Reported Cardizem Cd (Diltiazem Hcl) 180 Mg Cap.er.24h 1 Cap PO DAILY Tizanidine Hcl 4 Mg Tablet 1.5 Tab PO TID Ferrous Sulfate 325 Mg Tablet 1 Tab PO BID Diamox Sequels (Acetazolamide) 500 Mg Capsule.er 1,000 Mg AD BID Coumadin (Warfarin Sodium) 5 Mg Tablet 6 Mg PO DAILY Vitals/I & O Vital Sign - Last 24 Hours 11/18/16 11/18/16 11/18/16 11/18/16 15:20 15:26 17:02 19:00 Temp 98.1 98.4 98.1 98.4 Pulse 52 64 76 Resp 19 18 20 B/P (MAP) 154/93 (113) 152/93 130/62 (84) Pulse Ox 95 96 O2 Delivery Room Air Room Air Room Air 11/18/16 11/18/16 11/19/16 11/19/16 20:00 23:00 01:32 02:32 Temp 97.3 97.3 Pulse 46 Resp 20 12 16 B/P (MAP) 123/74 (90) Pulse Ox 97 97 O2 Delivery Room Air Room Air 11/19/16 11/19/16 11/19/16 11/19/16 03:00 07:00 08:00 08:47 Temp 97.9 97.5 97.9 97.5 Pulse 52 82 82 Resp 20 18 B/P (MAP) 135/74 (94) 138/81 (100) 138/81 Pulse Ox 98 97 O2 Delivery Room Air Room Air Room Air 11/19/16 11/19/16 11/19/16 11/19/16 08:48 10:00 11:00 11:30 Temp 97.7 97.7 Pulse 47 49 Resp 17 B/P (MAP) 105/57 (73) 105/51 (69) Pulse Ox 96 O2 Delivery Room Air Room Air Room Air Room Air 11/19/16 11/19/16 11:35 11:40 Pulse 61 73 B/P (MAP) 104/60 (75) 112/64 (80) O2 Delivery Room Air Room Air Intake and Output 11/18/16 11/18/16 11/19/16 14:59 22:59 06:59 Intake Total 600 ml 940 ml 600 ml Balance 600 ml 940 ml 600 ml CHRISTIANO MCADAMS MD Nov 19, 2016 13:44
[2016-11-19] MEDS ORDERED: WARFARIN 7.5 MG TABLET. PO ONE (16:00)
--- NOTE | 2016-11-19 16:49 | EKG ---
[facility] [address] [place] [address] Test Date: 2016-11-19 Test Time: 16:45:33 Pat Name: NELLY PINZON Department: Room: [facility] Gender: F [employer] Operator: : 1985 Requested By: CHRISTIANO MCADAMS Order Number: [id number] Reading MD: Sherie Silvestre Measurements Intervals [place] Rate: 39 P: 28 WV: 160 QRS: 16 QRSD: 88 T: 19 QT: 514 QTc: 415 Interpretive Statements SINUS BRADYCARDIA OTHERWISE NORMAL ECG Electronically Signed On 11-22-2016 14:51:07 CDT by Sherie Silvestre
[2016-11-20] MEDS: HYDROcodone/APAP 5/325MG 1 TAB TABLET PO PRN ×3 (00:59→17:20)
[2016-11-20 03:56] VITALS: BP 133/77
[2016-11-20 05:58] LABS: INR 1.6 (0.8-1.1)
[2016-11-20 07:08] VITALS: BP 147/83
[2016-11-20] MEDS: FERROUS SULFATE 325 MG TABLET. PO SCH ×2 (08:12→17:20)
[2016-11-20] MEDS: tiZANidine 4 MG TABLET. PO SCH ×2 (08:14→15:03)
--- NOTE | 2016-11-20 09:20 | PDOC2 ---
INÉS WYNNE [employer]CRAFT DISPATCH[employer] 11/20/16 0920: CARDIAC CONSULT DATE OF CONSULT Date of Consult DATE: 11/20/16 TIME: 09:15 REASON FOR CONSULT Reason for Consult: Bradycardia REFERRING PHYSICIAN Referring Physician: Dr. 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 Recently treated for PE at . Was discharged at the end of October with voucher for Lovenox to bridge to Coumadin therapy. Was not able to fill Coumadin as she was not able to afford due to lapse in insurance coverage. Pain located in her central chest. Describes as pressure and occasionally stabbing. Worsened with deep breath. CTA without evidence of PE. H/o of hypertension on Cardizem. Was noted to be bradycardia and complained of dizziness, which prompted this consult. No syncope, diaphoresis, or nausea/ vomiting. Reports having similar symptoms/bradycardia when at [facility] last month. Had echo conducted which she reports as normal. Cardizem was continued per her report. EKG shows SB, QTc 415. PAST MEDICAL HISTORY Cardiovascular: HTN Pulmonary: Other (PE) CENTRAL NERVOUS SYSTEM: Other ( Idiopathic intracranial hypertension) GI: No pertinent hx Heme/Onc: Other (Factor V Leiden, DVT/PE) Hepatobiliary: No pertinent hx Psych: No pertinent hx Rheumatologic: No pertinent hx Infectious disease: No pertinent hx ENT: No pertinent hx Renal/: No pertinent hx Endocrine: No pertinent hx Dermatology: No pertinent hx PAST SURGICAL HISTORY Past Surgical History: Cholecystectomy FAMILY HISTORY Family History: Heart Disease (father ) SOCIAL HISTORY Smoke: No ALCOHOL: rare Drugs: None Lives: with Family CURRENT MEDICATIONS CURRENT MEDICATIONS Current Medications Medications (Trade) Dose Ordered Sig/Lisbeth Route PRN Reason Start Time Stop Time Status Last Admin Dose Admin Warfarin Sodium (Coumadin) 7.5 mg 1X WARF ONCE PO 11/19/16 16:00 11/19/16 16:01 DC 11/19/16 17:48 ALLERGIES ALLERGIES: Coded Allergies: adhesive (Verified Allergy, Intermediate, Rash, 09/16/13) prochlorperazine (Verified Allergy, Intermediate, Rash, 09/16/13) ROS Review of System 14 point ROS conducted with pertinent positives noted above in HPI. PHYSICAL EXAM General: Alert, Oriented X3, Cooperative, No acute distress HEENT: Atraumatic, Mucous membr. moist/pink Lungs: Clear to auscultation, Normal air movement Heart: Normal S1, Normal S2, Other (SB rate 55) Abdomen: Soft Extremities: No edema, Normal pulses Skin: No significant lesion Neuro: Normal speech, Sensation intact Psych/Mental Status: Mental status NL, Mood NL VITALS VITALS Vital Signs Date Time Temp Pulse Resp B/P (MAP) Pulse Ox O2 Delivery O2 Flow Rate FiO2 11/20/16 08:13 Room Air 11/20/16 07:08 97.7 49 18 147/83 (104) 98 97.7 11/20/16 01:59 2.0 LABS Lab: Laboratory Tests Test 11/19/16 17:50 11/20/16 04:55 Troponin I Quantitative < 0.017 ng/mL (0.000-0.055) Prothrombin Time 18.0 SEC (11.7-14.0) Prothromb Time International Ratio 1.6 (0.8-1.1) ASSESSMENT/PLAN ASSESSMENT/PLAN 1. Chest pain, noncardiac 2. Sinus bradycardia 3. Factor V Leiden with recent PE 4. Hypertension Recommendations Cardizem discontinued. Will add SHAREE for BP control Avoid AV casa blocking agents Appropriate chronotropic response noted with activity No significant pauses noted on tele; will monitor. If remains bradycardia, recommend discontinuing Zanaflex. Problems: ROSHAN GARDNER MD 11/20/16 1625: CARDIAC CONSULT ALLERGIES ALLERGIES: Coded Allergies: adhesive (Verified Allergy, Intermediate, Rash, 09/16/13) prochlorperazine (Verified Allergy, Intermediate, Rash, 09/16/13) ASSESSMENT/PLAN ASSESSMENT/PLAN Patient seen and examined. Agree with above nurse practitioner note. 31-year-old woman presenting with mild bradycardia and noncardiac chest pain. Supportive care. Recommendations as noted above. Problems: INÉS WYNNE APRN Nov 20, 2016 09:20 ROSHAN GARDNER MD Nov 20, 2016 16:25
[2016-11-20 11:12] VITALS: BP 108/60
[2016-11-20] MEDS: LISINOPRIL 5 MG TABLET. PO SCH (11:25)
[2016-11-20] MEDS: MORPHINE SULFATE 4 MG/ML DISP.SYRIN. IV PRN ×2 (12:55→21:36)
--- NOTE | 2016-11-20 14:12 | PDOC ---
PROGRESS NOTES Chief Complaint Chief Complaint 1. Chest pains neg work up/ NO PE, POSsible 2/2 muscular pain, anxiety 2. FActor 5, hx recurrent PE with SUBTHERAPEUTIC INR, h/o DVT 3. Obesity 4. Benign Intracranial HTN, - on diamox 5. HTN not anymore 6. sinus BRADYCARDIA (11/19) plan: fu with card hold cardizem given low HR add lisinopril on coumadin daily, lovenox bridging INR daily add pain meds History of Present Illness History of Present Illness still chest pain 10/13 with mild tenderness, sinus bradycardia, CTA neg PE Vitals Vitals Vital Signs Date Time Temp Pulse Resp B/P (MAP) Pulse Ox O2 Delivery O2 Flow Rate FiO2 11/20/16 13:25 Room Air 11/20/16 11:25 51 108/60 11/20/16 11:12 97.5 18 97 97.5 11/20/16 09:13 2.0 Physical Exam General: Alert, Oriented X3, Cooperative, No acute distress Heart: Normal S1, Normal S2, Other (SB rate 55) Lungs: Clear Abdomen: Soft Extremities: No edema, Normal pulses Skin: No significant lesion Labs LABS Laboratory Tests Test 11/19/16 17:50 11/20/16 04:55 Troponin I Quantitative < 0.017 ng/mL (0.000-0.055) Prothrombin Time 18.0 SEC (11.7-14.0) Prothromb Time International Ratio 1.6 (0.8-1.1) Review of Systems Review of Systems no fever, chills, sob or chest pain Comment Review of Relevant I have reviewed the following items юлия (where applicable) has been applied. Labs Laboratory Tests Test 11/19/16 06:50 11/19/16 17:50 11/20/16 04:55 Prothrombin Time 15.9 SEC (11.7-14.0) 18.0 SEC (11.7-14.0) Prothromb Time International Ratio 1.4 (0.8-1.1) 1.6 (0.8-1.1) Troponin I Quantitative < 0.017 ng/mL (0.000-0.055) < 0.017 ng/mL (0.000-0.055) Thyroid Stimulating Hormone (TSH) 2.030 uIU/mL (0.358-3.74) Laboratory Tests Test 11/19/16 17:50 11/20/16 04:55 Troponin I Quantitative < 0.017 ng/mL (0.000-0.055) Prothrombin Time 18.0 SEC (11.7-14.0) Prothromb Time International Ratio 1.6 (0.8-1.1) Medications Current Medications Iohexol (Omnipaque 350 Mg/ml) 100 ml 1X ONCE IV ; Start 11/17/16 at 19:30; Stop 11/17/16 at 19:31; Status DC Enoxaparin Sodium (Lovenox 80mg Syringe) 160 mg 1X ONCE SQ Last administered on 11/17/16 20:29; Start 11/17/16 at 20:00; Stop 11/17/16 at 20:02; Status DC Ketorolac Tromethamine (Toradol) 15 mg 1X ONCE IV Last administered on 21:16; Start 11/17/16 at 21:15; Stop 11/17/16 at 21:16; Status DC Acetaminophen/ Hydrocodone Bitart (Lortab 5/325) 1 tab PRN Q6HRS PRN PO PAIN Last administered on 11/20/16 08:13; Start 11/18/16 at 04:45 Ketorolac Tromethamine (Toradol) 30 mg PRN Q6HRS PRN IV PAIN Last administered on 11/18/16 21:17; Start 11/18/16 at 04:45; Stop 11/23/16 at 04:44 Enoxaparin Sodium (Lovenox 120mg Syringe) 120 mg Q12HR SQ Last administered on 11/20/16 08:13; Start 11/18/16 at 15:00 Warfarin Sodium (Coumadin Per Pharmacy) 1 each PRN DAILY PRN MC SEE COMMENTS Last administered on 11/20/16 12:06; Start 11/18/16 at 14:45 Morphine Sulfate 2 mg PRN Q2HR PRN IV PAIN; Start 11/18/16 at 14:45; Stop 11/20 at 12:43; Status DC Acetaminophen (Tylenol) 650 mg PRN Q6HRS PRN PO pain; Start 11/18/16 at 14:45 Acetazolamide (Diamox) 1,000 mg BID PO Last administered on 11/20/16 08:13; Start 11/18/16 at 21:00 Diltiazem HCl (Cardizem 24hr Cd) 180 mg DAILY PO Last administered on 08:47; Start 11/18/16 at 15:00; Stop 11/19/16 at 12:53; Status DC Ferrous Sulfate (Feosol) 325 mg BIDWMEALS PO Last administered on 11/20/16 08: 12; Start 11/18/16 at 17:00 Tizanidine HCl (Zanaflex) 6 mg TID PO Last administered on 11/20/16 08:14; Start 11/18/16 at 15:00 Warfarin Sodium (Coumadin) 5 mg 1X WARF ONCE PO Last administered on 17:02; Start 11/18/16 at 16:00; Stop 11/18/16 at 16:01; Status DC Ondansetron HCl (Zofran) 4 mg PRN Q6HRS PRN IV NAUSEA/VOMITING; Start 11/19/16 at 10:00 Warfarin Sodium (Coumadin) 7.5 mg 1X WARF ONCE PO Last administered on 17:48; Start 11/19/16 at 16:00; Stop 11/19/16 at 16:01; Status DC Lisinopril (Prinivil) 5 mg DAILY PO Last administered on 11/20/16 11:25; Start 11/20/16 at 11:00 Warfarin Sodium (Coumadin) 9 mg 1X WARF ONCE PO ; Start 11/20/16 at 16:00; Stop 11/20/16 at 16:01 Morphine Sulfate 2 mg PRN Q2HR PRN IV PAIN Last administered on 11/20/16 12:55 ; Start 11/20/16 at 12:43 Active Scripts Active Reported Cardizem Cd (Diltiazem Hcl) 180 Mg Cap.er.24h 1 Cap PO DAILY Tizanidine Hcl 4 Mg Tablet 1.5 Tab PO TID Ferrous Sulfate 325 Mg Tablet 1 Tab PO BID Diamox Sequels (Acetazolamide) 500 Mg Capsule.er 1,000 Mg AD BID Coumadin (Warfarin Sodium) 5 Mg Tablet 6 Mg PO DAILY Vitals/I & O Vital Sign - Last 24 Hours 11/19/16 11/19/16 11/19/16 11/19/16 15:00 18:16 19:36 19:44 Temp 97.7 97.9 97.7 97.9 Pulse 44 44 Resp 17 16 B/P (MAP) 102/52 (69) 101/56 (71) Pulse Ox 98 97 O2 Delivery Room Air Nasal Cannula Room Air Room Air O2 Flow Rate 2.0 2.0 11/19/16 11/20/16 11/20/16 11/20/16 22:51 00:59 03:56 07:08 Temp 97.9 97.9 97.7 97.9 97.9 97.7 Pulse 45 48 49 Resp 16 18 18 B/P (MAP) 112/64 (80) 133/77 (95) 147/83 (104) Pulse Ox 97 97 96 98 O2 Delivery Room Air Room Air Room Air Room Air O2 Flow Rate 2.0 11/20/16 11/20/16 11/20/16 11/20/16 08:00 08:13 09:13 11:12 Temp 97.5 97.5 Pulse 51 Resp 18 B/P (MAP) 108/60 (76) Pulse Ox 98 97 O2 Delivery Room Air Room Air Room Air Room Air O2 Flow Rate 2.0 2.0 11/20/16 11/20/16 11/20/16 11:25 12:55 13:25 Pulse 51 B/P (MAP) 108/60 O2 Delivery Room Air Room Air Intake and Output 11/19/16 11/19/16 11/20/16 15:00 23:00 07:00 Intake Total 450 ml Balance 450 ml NATALIA SANTOS MD Nov 20, 2016 14:12
[2016-11-20] MEDS ORDERED: hydrALAZINE 20 MG/ML VIAL. IVP PRN (14:15)
[2016-11-20] MEDS ORDERED: traMADol 50 MG TABLET PO PRN (14:15)
[2016-11-20 14:51] VITALS: BP 132/76
[2016-11-20] MEDS ORDERED: WARFARIN 3 MG TABLET. PO ONE (16:00)
[2016-11-20 19:00] VITALS: BP 118/56
[2016-11-20 23:22] VITALS: BP 140/69
[2016-11-21] MEDS: MORPHINE SULFATE 4 MG/ML DISP.SYRIN. IV PRN ×4 (01:28→22:23)
[2016-11-21 03:00] VITALS: BP 135/87
[2016-11-21 07:54] VITALS: BP 105/56
[2016-11-21 10:12] LABS: INR 1.9 (0.8-1.1); PROTHROMBIN TIME PATIENT 20.5 SEC (11.7-14.0)
[2016-11-21] MEDS: FERROUS SULFATE 325 MG TABLET. PO SCH ×2 (10:24→17:14)
[2016-11-21] MEDS: LISINOPRIL 5 MG TABLET. PO SCH (10:29)
[2016-11-21 10:55] VITALS: BP 131/73
--- NOTE | 2016-11-21 12:08 | PDOC ---
PROGRESS NOTES Chief Complaint Chief Complaint 1. Chest pains neg work up/ NO PE, POSsible 2/2 muscular pain, anxiety 2. FActor 5, hx recurrent PE with SUBTHERAPEUTIC INR, h/o DVT 3. Obesity 4. Benign Intracranial HTN, - on diamox 5. HTN not anymore 6. sinus BRADYCARDIA (11/19) plan: fu with card hold cardizem given low HR add lisinopril on coumadin daily, lovenox bridging INR daily add pain meds, change to percocet dc tmr if ok with card History of Present Illness History of Present Illness still chest pain 09/13 with mild tenderness, sinus bradycardia better with meds dced CTA neg PE Vitals Vitals Vital Signs Date Time Temp Pulse Resp B/P (MAP) Pulse Ox O2 Delivery O2 Flow Rate FiO2 11/21/16 10:55 97.5 72 16 131/73 (92) 97 Room Air 97.5 11/21/16 01:28 2.0 Physical Exam General: Alert, Oriented X3, Cooperative, No acute distress Heart: Normal S1, Normal S2, Other (SB rate 55) Lungs: Clear Abdomen: Soft Extremities: No edema, Normal pulses Skin: No significant lesion Labs LABS Laboratory Tests Test 11/21/16 09:15 Prothrombin Time 20.5 SEC (11.7-14.0) Prothromb Time International Ratio 1.9 (0.8-1.1) Review of Systems Review of Systems no fever, chills, sob Comment Review of Relevant I have reviewed the following items юлия (where applicable) has been applied. Labs Laboratory Tests Test 11/19/16 17:50 11/20/16 04:55 11/21/16 09:15 Troponin I Quantitative < 0.017 ng/mL (0.000-0.055) Prothrombin Time 18.0 SEC (11.7-14.0) 20.5 SEC (11.7-14.0) Prothromb Time International Ratio 1.6 (0.8-1.1) 1.9 (0.8-1.1) Laboratory Tests Test 11/21/16 09:15 Prothrombin Time 20.5 SEC (11.7-14.0) Prothromb Time International Ratio 1.9 (0.8-1.1) Medications Current Medications Iohexol (Omnipaque 350 Mg/ml) 100 ml 1X ONCE IV ; Start 11/17/16 at 19:30; Stop 11/17/16 at 19:31; Status DC Enoxaparin Sodium (Lovenox 80mg Syringe) 160 mg 1X ONCE SQ Last administered on 11/17/16 20:29; Start 11/17/16 at 20:00; Stop 11/17/16 at 20:02; Status DC Ketorolac Tromethamine (Toradol) 15 mg 1X ONCE IV Last administered on 21:16; Start 11/17/16 at 21:15; Stop 11/17/16 at 21:16; Status DC Acetaminophen/ Hydrocodone Bitart (Lortab 5/325) 1 tab PRN Q6HRS PRN PO PAIN Last administered on 11/20/16 17:20; Start 11/18/16 at 04:45; Stop 11/21/16 at 11:01; Status DC Ketorolac Tromethamine (Toradol) 30 mg PRN Q6HRS PRN IV PAIN Last administered on 11/18/16 21:17; Start 11/18/16 at 04:45; Stop 11/23/16 at 04:44 Enoxaparin Sodium (Lovenox 120mg Syringe) 120 mg Q12HR SQ Last administered on 11/21/16 10:25; Start 11/18/16 at 15:00 Warfarin Sodium (Coumadin Per Pharmacy) 1 each PRN DAILY PRN MC SEE COMMENTS Last administered on 11/20/16 12:06; Start 11/18/16 at 14:45 Morphine Sulfate 2 mg PRN Q2HR PRN IV PAIN; Start 11/18/16 at 14:45; Stop 11/20 at 12:43; Status DC Acetaminophen (Tylenol) 650 mg PRN Q6HRS PRN PO pain; Start 11/18/16 at 14:45 Acetazolamide (Diamox) 1,000 mg BID PO Last administered on 11/21/16 10:24; Start 11/18/16 at 21:00 Diltiazem HCl (Cardizem 24hr Cd) 180 mg DAILY PO Last administered on 08:47; Start 11/18/16 at 15:00; Stop 11/19/16 at 12:53; Status DC Ferrous Sulfate (Feosol) 325 mg BIDWMEALS PO Last administered on 11/21/16 10: 24; Start 11/18/16 at 17:00 Tizanidine HCl (Zanaflex) 6 mg TID PO Last administered on 11/20/16 15:03; Start 11/18/16 at 15:00; Stop 11/20/16 at 16:41; Status DC Warfarin Sodium (Coumadin) 5 mg 1X WARF ONCE PO Last administered on 17:02; Start 11/18/16 at 16:00; Stop 11/18/16 at 16:01; Status DC Ondansetron HCl (Zofran) 4 mg PRN Q6HRS PRN IV NAUSEA/VOMITING; Start 11/19/16 at 10:00 Warfarin Sodium (Coumadin) 7.5 mg 1X WARF ONCE PO Last administered on 17:48; Start 11/19/16 at 16:00; Stop 11/19/16 at 16:01; Status DC Lisinopril (Prinivil) 5 mg DAILY PO Last administered on 11/21/16 10:29; Start 11/20/16 at 11:00 Warfarin Sodium (Coumadin) 9 mg 1X WARF ONCE PO Last administered on 15:03; Start 11/20/16 at 16:00; Stop 11/20/16 at 16:01; Status DC Morphine Sulfate 2 mg PRN Q2HR PRN IV PAIN Last administered on 11/21/16 10:50 ; Start 11/20/16 at 12:43 Hydralazine HCl (Apresoline) 10 mg PRN Q4HRS PRN IVP ELEVATED BP, SEE COMMENTS ; Start 11/20/16 at 14:15 Tramadol HCl (Ultram) 50 mg PRN Q6HRS PRN PO PAIN; Start 11/20/16 at 14:15 Oxycodone/ Acetaminophen (Percocet 5/325) 1 tab PRN Q4HRS PRN PO PAIN; Start at 11:00 Active Scripts Active Reported Cardizem Cd (Diltiazem Hcl) 180 Mg Cap.er.24h 1 Cap PO DAILY Tizanidine Hcl 4 Mg Tablet 1.5 Tab PO TID Ferrous Sulfate 325 Mg Tablet 1 Tab PO BID Diamox Sequels (Acetazolamide) 500 Mg Capsule.er 1,000 Mg AD BID Coumadin (Warfarin Sodium) 5 Mg Tablet 6 Mg PO DAILY Vitals/I & O Vital Sign - Last 24 Hours 11/20/16 11/20/16 11/20/16 11/20/16 12:55 14:51 17:20 18:20 Temp 97.7 97.7 Pulse 61 Resp 18 16 B/P (MAP) 132/76 (94) Pulse Ox 99 98 O2 Delivery Room Air Room Air Room Air Room Air 11/20/16 11/20/16 11/20/16 11/20/16 19:00 20:00 21:36 23:22 Temp 97.8 97.8 97.8 97.8 Pulse 55 56 Resp 18 B/P (MAP) 118/56 (76) 140/69 (92) Pulse Ox 98 98 100 O2 Delivery Room Air Room Air Room Air Room Air O2 Flow Rate 2.0 11/21/16 11/21/16 11/21/16 11/21/16 01:28 03:00 05:17 06:02 Temp 98.2 98.2 Pulse 70 Resp 16 B/P (MAP) 135/87 (103) Pulse Ox 100 99 99 99 O2 Delivery Room Air Room Air Room Air Room Air O2 Flow Rate 2.0 11/21/16 11/21/16 11/21/16 11/21/16 07:54 10:29 10:50 10:55 Temp 97.7 97.5 97.7 97.5 Pulse 68 66 72 Resp 18 18 16 B/P (MAP) 105/56 (72) 131/73 131/73 (92) Pulse Ox 96 96 97 O2 Delivery Room Air Room Air Room Air Intake and Output 11/20/16 11/20/16 11/21/16 15:00 23:00 07:00 Intake Total 120 ml 240 ml Balance 120 ml 240 ml NATALIA SANTOS MD Nov 21, 2016 12:08
[2016-11-21 14:55] VITALS: BP 123/75
[2016-11-21] MEDS ORDERED: WARFARIN 7.5 MG TABLET. PO ONE (16:00)
[2016-11-21] MEDS: oxyCODONE/APAP 5/325 1 TAB TABLET PO PRN ×2 (17:15→21:15)
[2016-11-21 19:20] VITALS: BP 136/64
[2016-11-21 23:51] VITALS: BP 118/75
[2016-11-22] MEDS: oxyCODONE/APAP 5/325 1 TAB TABLET PO PRN ×3 (02:39→16:40)
[2016-11-22] MEDS: MORPHINE SULFATE 4 MG/ML DISP.SYRIN. IV PRN ×3 (03:41→17:44)
[2016-11-22 03:42] VITALS: BP 124/81
[2016-11-22 04:35] LABS: BASO % 1 % (0-3); EOS % 2 % (0-3); HEMATOCRIT 44.7 % (36.0-47.0); LYMPH # 2.8 x10^3/uL (1.0-4.8); LYMPH % 33 % (24-48); MEAN CORPUSCULAR HEMOGLOBIN 28 pg (25-35); MEAN CORPUSCULAR HGB CONC 34 g/dL (31-37); MEAN CORPUSCULAR VOLUME 84 fL (79-100); MONO % 8 % (0-9); NEUT % 58 % (31-73); PLATELET COUNT 379 x10^3/uL (140-400); RED BLOOD COUNT 5.34 x10^6/uL (3.50-5.40); WHITE BLOOD COUNT 8.5 x10^3/uL (4.0-11.0)
[2016-11-22 05:04] LABS: CALCIUM 8.4 mg/dL (8.5-10.1); CREATININE 0.8 mg/dL (0.6-1.0); GFR 83.1; POTASSIUM 3.7 mmol/L (3.5-5.1)
[2016-11-22 06:18] LABS: INR 2.1 (0.8-1.1); PROTHROMBIN TIME PATIENT 22.2 SEC (11.7-14.0)
[2016-11-22 07:00] VITALS: BP 118/76
[2016-11-22] MEDS: LISINOPRIL 5 MG TABLET. PO SCH (08:36)
[2016-11-22] MEDS: FERROUS SULFATE 325 MG TABLET. PO SCH ×2 (08:36→16:39)
[2016-11-22 10:48] VITALS: BP 120/81
[2016-11-22 14:47] VITALS: BP 114/71
[2016-11-22] MEDS ORDERED: WARFARIN 7.5 MG TABLET. PO ONE (16:00)
[2016-11-22] MEDS ORDERED: LISI-338 PO (18:28)
[2016-11-22] MEDS ORDERED: WARF7.5T48 PO (18:28)
[2016-11-22] MEDS ORDERED: METH4TAB2 PO (18:28)
--- NOTE | 2016-11-23 21:06 | DS ---
DATE OF DISCHARGE: 11/22/2016 CHIEF COMPLAINT: Chest pain. 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 CTA this time was negative for any PE, although she apparently had run out of Coumadin and her INR was subtherapeutic. Chest pain recurred in the same area of her right lower chest where she had had previous PE. No abnormality was seen on CT. She was treated with pain medications. She was started on Lovenox therapeutic dose and restarted on Coumadin as well. When INR was therapeutic she was discharged to home. PHYSICAL EXAMINATION: VITAL SIGNS: Show a blood pressure of 114/70, heart rate of 73, respiratory rate at 19. She is afebrile. GENERAL: This is a morbidly obese woman, alert and oriented, no acute distress. LUNGS: Clear. HEART: Regular rate and rhythm. ABDOMEN: Has positive bowel sounds, soft, nontender. EXTREMITIES: Show no edema. DISCHARGE DATE: 11/22/2016 DISCHARGE DIAGNOSES: Chest pain, musculoskeletal. Subtherapeutic INR. DISCHARGE DISPOSITION: To home. DISCHARGE CONDITION: Improved. DISCHARGE MEDICATIONS: Please refer to MAR. DISCHARGE INSTRUCTIONS: The patient will follow up with PCP when possible. HAYES PICKARD MD DR: LAUREANO/nts JOB#: [id number] / [id number] SHEMAR
== END 2016-11-22 19:45 | disposition home or self-care (01) | DRG 206 ==
LOC: ER 18:28 → 5 SOUTH 19:45 → 6 SOUTH 21:48
PROVIDERS: ADMIT Internal Medicine; ATTEND Internal Medicine
PROC: BW241ZZ Computerized Tomography (CT Scan) of Chest and Abdomen using Low Osmolar Contrast (ICD-10-PCS; principal; 2016-11-17)
DX: M94.0 Chondrocostal junction syndrome [Tietze] (principal); D68.51 Activated protein C resistance; E87.1 Hypo-osmolality and hyponatremia; G93.2 Benign intracranial hypertension; E66.01 Morbid (severe) obesity due to excess calories; F41.9 Anxiety disorder, unspecified; G43.909 Migraine, unspecified, not intractable, without status migrainosus; I10 Essential (primary) hypertension; Z90.49 Acquired absence of other specified parts of digestive tract; Z86.711 Personal history of pulmonary embolism; Z82.49 Family history of ischemic heart disease and other diseases of the circulatory system; Z88.8 Allergy status to other drugs, medicaments and biological substances; Z91.048 Other nonmedicinal substance allergy status; Z91.14 Patient's other noncompliance with medication regimen; Z79.01 Long term (current) use of anticoagulants; Z86.718 Personal history of other venous thrombosis and embolism; Z68.37 Body mass index [BMI] 37.0-37.9, adult
CPT/HCPCS: 36415; 71010; 71275; 80048; 80053; 81025; 84443; 84484; 85025; 85610; 85730; 93005; 96372; 96374; J1650; J1885; J2270; 99285-25